=== PATIENT | female | born 1970 | race Caucasian/White ===

== ENCOUNTER 2017-12-20 14:30 | Outpatient (RCR) | payer OTHER, SELFPAY | END 2018-01-12 23:59 | LOC: DC 14:30 | PROVIDERS: Family Provider Nurse Practitioner; PCP Nurse Practitioner; Visit Provider Nurse Practitioner | DX: E11.9 Type 2 diabetes mellitus without complications (principal); Z71.3 Dietary counseling and surveillance | CPT/HCPCS: 97802; G0108 ==

== ENCOUNTER 2018-02-06 16:16 | Outpatient (RCR) | payer OTHER, SELFPAY | END 2018-02-11 23:59 | LOC: DC 16:16 | PROVIDERS: Family Provider Nurse Practitioner; PCP Nurse Practitioner; Visit Provider Nurse Practitioner | DX: E11.9 Type 2 diabetes mellitus without complications (principal); Z71.3 Dietary counseling and surveillance | CPT/HCPCS: 97803 ==

== ENCOUNTER 2018-03-16 18:30 | Outpatient (RCR) | payer OTHER, SELFPAY | END 2018-04-14 23:59 | LOC: DC 18:30 | PROVIDERS: Family Provider Nurse Practitioner; PCP Nurse Practitioner; Visit Provider Nurse Practitioner | DX: E11.9 Type 2 diabetes mellitus without complications (principal); Z71.3 Dietary counseling and surveillance | CPT/HCPCS: 97803; G0109 ==

== ENCOUNTER 2018-05-04 16:30 | Outpatient (RCR) | payer OTHER, SELFPAY | END 2018-05-14 23:59 | LOC: DC 16:30 | PROVIDERS: Family Provider Nurse Practitioner; PCP Nurse Practitioner; Visit Provider Nurse Practitioner | DX: E11.9 Type 2 diabetes mellitus without complications (principal); Z71.3 Dietary counseling and surveillance | CPT/HCPCS: G0109 ==

== ENCOUNTER 2018-05-18 08:52 | Outpatient (RCR) | payer OTHER, SELFPAY | END 2018-06-14 23:59 | LOC: DC 08:52 | PROVIDERS: Family Provider Nurse Practitioner; PCP Nurse Practitioner; Referring Provider Nurse Practitioner; Visit Provider Nurse Practitioner | DX: E11.9 Type 2 diabetes mellitus without complications (principal); Z71.3 Dietary counseling and surveillance ==

== ENCOUNTER → 2018-05-29 07:26 | Outpatient (CLI) | payer OTHER, SELFPAY ==
--- NOTE | 2018-05-29 07:30 | ECHOD_ITS ---
Reason For Study: SOB Procedure This was a 2D Doppler, Color Flow transthoracic echocardiogram. Exam performed in department. Left Ventricle Normal LV size. Left ventricular systolic function is normal. The estimated ejection fraction is 55 %. Normal diastology for age. No regional wall motion abnormalities noted. Right Ventricle Normal RV size. Normal systolic function. Atria Normal left atrium. Normal right atrium. Mitral Valve Normal mitral valve. Tricuspid Valve Normal tricuspid valve. Aortic Valve Normal aortic valve. Trisinus/trileaflet aortic valve. Pulmonic Valve Normal pulmonic valve. Great Vessels Normal aortic root. The pulmonary artery is normal size. Normal inferior vena cava. Pericardium/Pleural No pericardial effusion. MMode/2D Measurements & Calculations LVIDd: 4.3 cm IVSd: 0.78 cm Ao root diam: 2.9 cm LVIDs: 2.8 cm LVPWd: 0.82 cm LA dimension: 3.6 cm RVDd: 3.1 cm FS: 33.7 % LAV(MOD-bp): 32.0 ml LA A4 area: 13.2 cm2 RA A4 area: 10.6 cm2 LAV(MOD-bp) Indexed: 15.7 ml/m2 LAV(MOD-sp2): 32.2 ml LAV(MOD-sp4): 29.3 ml Time Measurements MV dec time: 0.19 sec Doppler Measurements & Calculations MV E max jonathan: 86.4 cm/sec Lat Peak E' Jonathan: 10.1 cm/sec Med Peak E' Jonathan: 8.3 cm/sec MV A max jonathan: 67.7 cm/sec E/E' lat: 8.5 E/E' med: 10.4 MV E/A: 1.3 Ao V2 max: 143.5 cm/sec LV V1 max: 121.7 cm/sec PA V2 max: 112.5 cm/sec Ao max P.2 mmHg LV V1 max P.9 mmHg Interpretation Summary Normal LV size. Left ventricular systolic function is normal. The estimated ejection fraction is 55 %. Normal diastology for age. Ordering Physician: Cathy Wang Referring Physician: Cathy Wang Performed By: Jocelyn Houser, GONZALEZ, RVT
[2018-05-29 07:52] LABS: Absolute Lymphocyte Count 3.49 X10^3/ul (0.83-4.51); Absolute Neutrophil Count 10.6 X10^3/uL (2.0-7.7); Basophil# 0.03 X10^3/uL; Basophil% 0.2 % (0-1); Eosinophil# 0.45 X10^3/uL; Eosinophils% 2.9 % (0-5); Hematocrit 39.1 % (37-47); Lymphocyte # 3.49 X10^3/ul (4.0); Lymphocyte % 22.4 % (19-41); Mean Corp Hgb Conc 30.7 g/gl (32-36); Mean Corpuscular Hgb 24.4 pg (27.0-32.0); Mean Corpuscular Volume 79.5 fL (81-99); Mean Platelet Vol. 10.3 fl (6.2-12.0); Monocyte# 0.92 X10^3/uL; Monocyte% 5.9 % (0-10); Neutrophil # 10.63 X10^3/uL (2.7-7.7); Neutrophil % 68.3 % (47-70); Platelet Count 502 K/mm3 (150-450); RBC Distribution Width CV 16.2 % (11.6-14.6); RBC Distribution Width SD 46.9 fl (35.1-43.9); Red Blood Count 4.92 M/mm3 (4.2-5.4); White Blood Count 15.6 K/mm3 (4.4-11.0)
[2018-05-29 07:53] LABS: POSITIVE COUNT NO; POSITIVE DIFFERENTIAL NO; POSITIVE MORPHOLOGY NO
--- NOTE | 2018-05-29 08:05 | EKG12_ITS ---
Test Reason : SOB Blood Pressure : / mmHG Vent. Rate : 102 BPM Atrial Rate : 102 BPM P-R Int : 136 ms QRS Dur : 074 ms QT Int : 354 ms P-R-T Axes : 031 -03 011 degrees QTc Int : 461 ms Sinus tachycardia Otherwise normal ECG Confirmed by DEMETRICE BUENO, PREMA ([id number]), acquisition editor SALO MAYFIELD ([id number]) on 06/01/2018 10:21:33 AM Referred By: Cathy Wang Confirmed By:PREMA SURESH MD
[2018-05-29 08:12] LABS: Cholesterol 194 mg/dL (200); High Density Lipoprotein 40 mg/dL; Thyroid Stim Hormone (TSH) 2.44 uIU/mL (0.358-3.74); Triglycerides 123 mg/dL; Very Low Density Lipoprotein 25 mg/dL (5-40)
== END ==
LOC: CVS 07:29
PROVIDERS: Family Provider Internal Medicine; PCP Internal Medicine; Referring Provider Internal Medicine; Visit Provider Internal Medicine
DX: E03.9 Hypothyroidism, unspecified (principal); E11.9 Type 2 diabetes mellitus without complications; G47.33 Obstructive sleep apnea (adult) (pediatric); R06.02 Shortness of breath
CPT/HCPCS: 36415; 80061; 84443; 85025; 93005; 93306

== ENCOUNTER → 2018-07-07 12:27 | Outpatient (CLI) | payer OTHER, SELFPAY ==
[2018-06-28 16:47] VITALS: BMI 35.3
--- NOTE | 2018-07-07 12:30 | BI_ITS ---
MAMMOGRAPHY - BILATERAL SCREENING REASON FOR EXAM: Female, 47 years old. Routine annual screening examination. PERTINENT HISTORY: Non-contributory. TECHNIQUE: Digital bilateral breast ivet (3D mammographic acquisition) in the CC and MLO projections. 2-D mediolateral oblique (MLO) and craniocaudad (CC) views of both breasts were obtained. CAD: Full Field Digital Mammography with Computer Added Detection was performed. COMPARISON: Comparison is made with a prior examination is May 02, 2013. FINDINGS: Breast Composition: The breasts are heterogeneously dense, which may obscure small masses. There are no dominant masses or suspicious calcifications. No other significant abnormalities are identified. There has been no significant change since the prior study. BI/SCREENING MAMM (CAD), BILAT IMPRESSION: Stable bilateral screening mammogram. Yearly follow-up mammogram recommended. (A) ASSESSMENT CATEGORY: BIRADS Category 1: Negative. A letter regarding these results will be sent to the patient by the facility within 30 days. Approximately 10% of breast cancers are not detected by mammography. A normal mammogram should not delay biopsy of a clinically suspicious abnormality. [id number] Electronically Signed: Jj Rivera MD at 9:37 EST Tel [phone], Service support ,
== END ==
PROVIDERS: Family Provider Internal Medicine; PCP Internal Medicine; Referring Provider Internal Medicine; Visit Provider Internal Medicine
DX: Z12.31 Encounter for screening mammogram for malignant neoplasm of breast (principal)
CPT/HCPCS: 77063; 77067

== ENCOUNTER 2018-07-17 08:45 | Emergency (ER) | payer OTHER, SELFPAY ==
[2018-07-14 14:59] VITALS: BMI 35.3
[2018-07-17 08:46] VITALS: BP 147/92; PULSE 92; RESP 23; TEMP 36.9; O2SAT 96; BMI 35.7
[2018-07-17 09:18] VITALS: O2SAT 97
--- NOTE | 2018-07-17 09:18 | EKG12_ITS ---
Test Reason : CP Blood Pressure : / mmHG Vent. Rate : 091 BPM Atrial Rate : 091 BPM P-R Int : 142 ms QRS Dur : 072 ms QT Int : 360 ms P-R-T Axes : 058 009 007 degrees QTc Int : 442 ms Normal sinus rhythm Low voltage QRS Borderline ECG Confirmed by DEMETRICE BUENO, PREMA ([id number]), assignment editor SALO MAYFIELD ([id number]) on 07/20/2018 1:42:28 PM Referred By: DURGA Confirmed By:PREMA SURESH MD
[2018-07-17 09:35] LABS: Absolute Neutrophil Count 10.1 X10^3/uL (2.0-7.7); Basophil# 0.07 X10^3/uL; Basophil% 0.5 % (0-1); Eosinophil# 0.56 X10^3/uL; Eosinophils% 3.7 % (0-5); Hematocrit 38.1 % (37-47); Hemoglobin 11.6 g/dl (12.0-15.0); Lymphocyte % 22.6 % (19-41); Mean Corp Hgb Conc 30.4 g/gl (32-36); Mean Corpuscular Hgb 23.8 pg (27.0-32.0); Mean Corpuscular Volume 78.1 fL (81-99); Mean Platelet Vol. 10.4 fl (6.2-12.0); Monocyte# 0.84 X10^3/uL; Monocyte% 5.6 % (0-10); Neutrophil # 10.07 X10^3/uL (2.7-7.7); Neutrophil % 67.1 % (47-70); POSITIVE COUNT NO; POSITIVE DIFFERENTIAL NO; POSITIVE MORPHOLOGY NO; Platelet Count 544 K/mm3 (150-450); RBC Distribution Width CV 17.1 % (11.6-14.6); RBC Distribution Width SD 48.3 fl (35.1-43.9); Red Blood Count 4.88 M/mm3 (4.2-5.4)
--- NOTE | 2018-07-17 09:35 | RAD_ITS ---
STUDY: X-RAY CHEST REASON FOR EXAM: Female, 47 years old. Chest pain. History of asthma. TECHNIQUE: PA and lateral views of the chest. COMPARISON: Comparison is made with prior examination dated January 28, 2017. FINDINGS: EKG electrodes are seen. Mild increased linear markings at the left lung base suggestive of a left basilar atelectasis and/or scarring. This has progressed slightly as compared to prior study. There is no demonstrated pleural abnormality. Normal size heart. Normal mediastinum and sherwin. Normal visualized pulmonary arteries. Normal visualized aortic arch and descending thoracic aorta. There are mild degenerative changes of the visualized thoracic spine. Normal visualized ribs, clavicles, and shoulders. There is no demonstrated abnormality of the visualized soft tissue structures of the upper abdomen. RAD/Chest PA and Lateral IMPRESSION: Minimal increased linear markings at the left lung base suggestive of linear atelectasis and/or scarring. Electronically Signed: Jj Rivera MD at 10:08 EST Tel [phone], Service support ,
[2018-07-17] MEDS: Aspirin 81 MG TAB.CHEW 324 MG PO (09:47)
[2018-07-17 09:50] LABS: Anion Gap 8 (5-15); BUN 15 mg/dL (7-18); BUN/Creat Ratio 15.2 RATIO (10-20); Calcium,Total 9.7 mg/dL (8.5-10.1); Chloride 102 mmol/L (98-107); Creatinine, Serum 0.99 mg/dL (0.55-1.02); EST Glomerular Filtration Rate 64 mL/min (>60); Est Glom Filt Rate - Afr Amer 78 mL/min (>60); Estimated Creatinine Clearance 66.47 ml/min; Glucose 181 mg/dL (74-106); Sodium Level 138 mmol/L (136-145)
[2018-07-17 09:54] VITALS: BP 139/85; PULSE 85; RESP 18; O2SAT 97
[2018-07-17 10:00] LABS: BNP,B-Type NATRIURETIC PEPTIDE 28.8 pg/mL (0-100)
--- NOTE | 2018-07-17 10:16 | CT_ITS ---
STUDY: CTA CHEST REASON FOR EXAM: Female, 47 years old. 2 day history of chest pain. Recent medication change. RADIATION DOSAGE (If Supplied By Facility): CTDIvol = ( 14.62 ) mGy, DLP = ( 633.35 ) mGycm TECHNIQUE: The examination was performed with the intravenous administration of 100 ml of Isovue 370 contrast material. Post-processing of the angiographic images was performed, with multiplanar reformation and 3D reconstruction. Individualized dose optimization techniques were used for this CT. COMPARISON: None. FINDINGS: Normal enhancement of the main pulmonary artery and right and left pulmonary arteries. Normal enhancement of the bilateral peripheral pulmonary arteries. There is no demonstrated pulmonary embolism. Normal thoracic aorta and visualized great vessels. There is no demonstrated aortic dissection. Normal heart and pericardium. Normal mediastinum. Normal hilar regions. Normal visualized trachea and bronchi. The lungs are well expanded. Minimal increased linear markings in the anterior aspect of the left lower lobe. Minimal pleural thickening at both lung bases. Normal chest wall structures. There are degenerative changes of thoracic spine. There is diffuse fatty infiltration of the liver. CT/CTA Chest W/WO Contrast IMPRESSION: Normal CTA chest examination, without a demonstrated pulmonary embolism or arterial dissection. Electronically Signed: Jj Rivera MD at 11:21 EST Tel [phone], Service support ,
[2018-07-17 11:19] VITALS: BP 126/78; PULSE 77; RESP 20; O2SAT 96
--- NOTE | 2018-07-17 11:55 | ED.VISSUMM ---
- ER Visit Summary Date of Service: 07/17/18 Chief Complaint: Chest pain History of Present Illness: The patient is a 47 F presenting with right sided nonradiating, nonexertional chest pain essentially for several weeks intermittently but now constant for the past 4 days. She saw her doctor for it last week and her beta-alvarez was switched. She started to feel somewhat better since then but the chest pain has never completely resolved. It is not worse with exertion nor does she have associated diaphoresis. She does have occasional dyspnea. She denies recent travel or immobilization. She does note somewhat chronic lower extremity edema but this is not much worse than baseline. She denies orthopnea. Physical Examination: Vitals are within normal limits. She is not in distress. Neck is supple. Heart tones are regular and without murmur. Lungs are clear bilaterally. Her abdomen is soft and nontender. She has 1+ symmetric lower extremity edema. No tenderness along the lower extremity venous system or palpable cords. Test Results: CBC was normal except for white count of 15,000. She states that this is chronic for her and her baseline is 15,000. She states that she has been evaluated extensively for this with no conclusive cause found and has had consultations with 2 separate yard stocker. She denies cough, fever, chills, or body aches at this time. No symptoms of infection. Chest x-ray was negative for obvious acute process but did reveal atelectasis at the bases. Troponin was negative after 4 days of constant symptoms and her EKG is unremarkable so I do not think that there is an acute cardiac cause for her pain at this time. I subsequently ordered a CT angiogram to rule out pulmonary embolism and it was negative. She feels quite well on reexamination. She certainly does have multiple risk factors but her pain is not exertional nor is it associated with any other cardiac type symptoms and she has a negative troponin after several days of constant symptoms. The exact cause of her chest pain is not clear at this point but it does not appear to be life-threatening. I feel she can safely follow-up with a top lift scourer as an outpatient. Emergency Department Course and Treatment: Follow-up with cardiology Treatment Plan: Disposition: Home stable condition Impression: Initial encounter chest pain uncertain etiology This note was generated with [employer] dictation software. It may contain incorrect words, spelling, and punctuation that were not noted in review of the chart prior to signing ED Disposition - Plan for ED Patient: Chief Complaint: Chest Pain Diagnosis: Chest pain Instructions: ED Chest Pain Atypical Unkn Cause Referrals: Madi Tovar MD [STAFF PHYSICIAN] -
--- NOTE | 2018-07-17 11:59 | ED.DCSUM_ITS ---
- ER Visit Summary Date of Service: 07/17/18 Chief Complaint: Chest pain History of Present Illness: The patient is a 47 F presenting with right sided nonradiating, nonexertional chest pain essentially for several weeks intermittently but now constant for the past 4 days. She saw her doctor for it last week and her beta-alvarez was switched. She started to feel somewhat better since then but the chest pain has never completely resolved. It is not worse with exertion nor does she have associated diaphoresis. She does have occasional dyspnea. She denies recent travel or immobilization. She does note somewhat chronic lower extremity edema but this is not much worse than baseline. She denies orthopnea. Physical Examination: Vitals are within normal limits. She is not in distress. Neck is supple. Heart tones are regular and without murmur. Lungs are clear bilaterally. Her abdomen is soft and nontender. She has 1+ symmetric lower extremity edema. No tenderness along the lower extremity venous system or palpable cords. Test Results: CBC was normal except for white count of 15,000. She states that this is chronic for her and her baseline is 15,000. She states that she has been evaluated extensively for this with no conclusive cause found and has had consultations with 2 separate bilingual hr generalist. She denies cough, fever, chills, or body aches at this time. No symptoms of infection. Chest x-ray was negative for obvious acute process but did reveal atelectasis at the bases. Troponin was negative after 4 days of constant symptoms and her EKG is unremarkable so I do not think that there is an acute cardiac cause for her pain at this time. I subsequently ordered a CT angiogram to rule out pulmonary embolism and it was negative. She feels quite well on reexamination. She certainly does have multiple risk factors but her pain is not exertional nor is it associated with any other cardiac type symptoms and she has a negative troponin after several days of constant symptoms. The exact cause of her chest pain is not clear at th is point but it does not appear to be life-threatening. I feel she can safely follow-up with a woodworking machine setter as an outpatient. Emergency Department Course and Treatment: Follow-up with cardiology Treatment Plan: Disposition: Home stable condition Impression: Initial encounter chest pain uncertain etiology This note was generated with [employer] dictation software. It may contain incorrect words, spelling, and punctuation that were not noted in review of the chart prior to signing ED Disposition - Plan for ED Patient: Chief Complaint: Chest Pain Diagnosis: Chest pain Instructions: ED Chest Pain Atypical Unkn Cause Referrals: Madi Tovar MD [STAFF PHYSICIAN] -
[2018-07-17 12:14] VITALS: BP 125/75; PULSE 81; RESP 20; O2SAT 95
--- OUTSIDE RECORDS SUMMARY | 2018-09-09 12:29 | XMS RPT_ITS ---
:1970 Author Organization OHIP Support Name Relationship Address Phone TONIO THOMSON Unavailable [address] + [place] [address] TEAL, RAFFI Unavailable [address] + [place] [address] WAY[facility] Unavailable [address] + [place] [address] CARTIM TONIO Unavailable [address] + [place] [address] TEAL, RAFFI Unavailable [address] + [place] [address] [employer] Unavailable [address] + [place] [address] CARICOFE, TONIO Unavailable [address] + [place] [address] TEAL, RAFFI Unavailable [address] + [place] [address] [facility] Unavailable [address] + [place] [address] CARICOFE, TONIO Unavailable [address] + [place] [address] TEAL, RAFFI Unavailable [address] + [place] [address] [facility] Unavailable [address] + [place] [address] CARICOFE, TONIO Unavailable [address] + [place] [address] TEAL, RAFFI Unavailable [address] + [place] [address] [facility] Unavailable [address] + [place] [address] CARICOFE, TONIO Unavailable [address] + [place] [address] TEAL, RAFFI Unavailable [address] + [place] [address] [facility] Unavailable [address] + [place] [address] CARICOFE, TONIO Unavailable [address] + [place] [address] TEAL, RAFFI Unavailable [address] + [place] [address] [facility] Unavailable [address] + [place] [address] CARICOFE, TONIO Unavailable [address] + [place] [address] TEAL, RAFFI Unavailable [address] + [place] [address] [facility] Unavailable [address] + [place] [address] CARICOFE, TONIO Unavailable Unavailable + TEAL, RAFFI Unavailable Unavailable + [facility] Unavailable [address] + [place] [address] CARICOFE, TONIO Unavailable [address] + [place] [address] TEAL, RAFFI Unavailable [address] + [place] [address] [facility] Unavailable [address] + [place] [address] CARICOFE, TONIO Unavailable [address] + [place] [address] TEAL, RAFFI Unavailable [address] + [place] [address] [facility] Unavailable [address] + [place] [address] CARICOFE, TONIO Unavailable [address] + [place] [address] TEAL, RAFFI Unavailable Unavailable + [place] [address] [facility] Unavailable [address] + [place] [address] CARICOFE, TONIO Unavailable [address] + [place] [address] TEAL, RAFFI Unavailable Unavailable + [place] [address] [facility] Unavailable [address] + [place] [address] CARICOFE, TONIO Unavailable [address] + [place] [address] TEAL, RAFFI Unavailable [address] + [facility] [place] [address] WAY[facility] Unavailable [address] + [place] [address] [facility] Unavailable [address] + [place] [address] Caricofe, Tonio Unavailable [address] + [place] [address] Teal, Raffi Unavailable [address] + [place] [address] [facility] Unavailable [address] + [place] [address] Caricofe, Tonio Unavailable [address] + [place] [address] Teal, Raffi Unavailable [address] + [place] [address] [facility] Unavailable [address] + [place] [address] Caricofe, Tonio Unavailable [address] + [place] [address] Teal, Raffi Unavailable [address] + [place] [address] WAYBD[facility] Unavailable [address] + [place] [address] Caricofe, Tonio Unavailable [address] + [place] [address] Teal, Raffi Unavailable [address] + [place] [address] [employer] Unavailable [address] + [place] [address] Caricofe, Tonio Unavailable [address] + [place] [address] Teal, Raffi Unavailable [address] + [place] [address] [facility] Unavailable [address] + [place] [address] Caricofe, Tonio Unavailable [address] + [place] [address] Teal, Raffi Unavailable [address] + [place] [address] [employer] Unavailable [address] + [place] [address] Caricofe, Tonio Unavailable [address] + [place] [address] Teal, Raffi Unavailable [address] + [place] [address] WAY[facility] Unavailable [address] + [place] [address] Caricofe, Tonio Unavailable [address] + [place] [address] Teal, Raffi Unavailable [address] + [place] [address] WAYBD[facility] Unavailable [address] + [place] [address] Caricofe, Tonio Unavailable [address] + [place] [address] Teal, Raffi Unavailable [address] + [place] [address] WAYBD[facility] Unavailable [address] + [place] [address] Caricofe, Tonio Unavailable [address] + [place] [address] Teal, Raffi Unavailable [address] + [place] [address] WAYBDMD Unavailable [address] + [place] [address] Timbo Tonio Unavailable [address] + [place] [address] Teal, Raffi Unavailable [address] + [place] [address] WAYBD[facility] Unavailable [address] + [place] [address] Tonio Thomson Unavailable [address] + [place] [address] Teal, Raffi Unavailable [address] + [place] [address] WAYBD[facility] Unavailable [address] + [place] [address] Care Team Providers Name Role Phone Renita Mondragon Attending Unavailable GuyHannah cordoval Attending Unavailable Oleghe, Efewongbe Referring Unavailable Chanel Young Attending Unavailable Patricia Harmon PAYROLL MANAGER-C Attending Unavailable ShoPatricia cedeno PAYROLL MANAGER-C Referring Unavailable ShoPatricia cedeno PAYROLL MANAGER-C Primary Care Unavailable Guy, Madi Attending Unavailable Guy, [place] Referring Unavailable Oleghe, Efewongbe Primary Care Unavailable Oleghe, Efewongbe Attending Unavailable Oleghe, Efewongbe Referring Unavailable Ganesh Palmer Attending Unavailable Patricia Harmon PAYROLL MANAGER-C Referring Unavailable Patricia Harmon PAYROLL MANAGER-C Primary Care Unavailable [facility], Later [facility] [facility] Attending Unavailable Patricia Harmon PAYROLL MANAGER-C Attending Unavailable Patricia Harmon PAYROLL MANAGER-C Referring Unavailable ShoPatricia cedeno PAYROLL MANAGER-C Attending Unavailable Patricia Harmon PAYROLL MANAGER-C Referring Unavailable Patricia Harmon PAYROLL MANAGER-C Primary Care Unavailable Patricia Harmon PAYROLL MANAGER-C Attending Unavailable Patricia Harmon PAYROLL MANAGER-C Referring Unavailable Patricia Harmon PAYROLL MANAGER-C Primary Care Unavailable Patricia Harmon PAYROLL MANAGER-C Attending Unavailable Patricia Harmno PAYROLL MANAGER-C Referring Unavailable Patricia Harmon PAYROLL MANAGER-C Primary Care Unavailable [facility], Later [facility] [facility] Employee Attending Unavailable Patricia Harmon PAYROLL MANAGER-C Attending Unavailable Patricia Harmon PAYROLL MANAGER-C Referring Unavailable ShoPatricia cedeno PAYROLL MANAGER-C Attending Unavailable ShoPatricia cedeno PAYROLL MANAGER-C Referring Unavailable ShoPatricia cedeno PAYROLL MANAGER-C Primary Care Unavailable Patricia Harmon PAYROLL MANAGER-C Attending Unavailable ShoPatricia cedeno PAYROLL MANAGER-C Referring Unavailable ShoPatricia cedeno PAYROLL MANAGER-C Primary Care Unavailable Oleghe, Efewongbe Attending Unavailable ShoPatricia cedeno PAYROLL MANAGER-C Referring Unavailable Oleghe, Efewongbe Attending Unavailable Oleghe, Efewongbe Referring Unavailable Oleghe, Efewongbe Primary Care Unavailable Guy, [place] Attending Unavailable Oleghe, Efewongbe Referring Unavailable Oleghe, Efewongbe Primary Care Unavailable Oleghe, Efewongbe Consulting Unavailable Patricia Harmon PAYROLL MANAGER-C Attending Unavailable Showilian, Patricia Ojeda PAYROLL MANAGER-C Referring Unavailable ShoPatricia cedeno PAYROLL MANAGER-C Attending Unavailable Shook, Patricia Ojeda PAYROLL MANAGER-C Referring Unavailable Oleghe, Efewongbe Primary Care Unavailable Clay Suresh Attending Unavailable Oleghe, Efewongbe Referring Unavailable Oleghe, Efewongbe Attending Unavailable Oleghe, Efewongbe Referring Unavailable Oleghe, Efewongbe Attending Unavailable Oleghe, Efewongbe Primary Care Unavailable Oleghe, Efewongbe Referring Unavailable Oleghe, Efewongbe Attending Unavailable Oleghe, Efewongbe Primary Care Unavailable Emigdio Clemente PAYROLL MANAGER-C Attending Unavailable Oleghe, Efewongbe Referring Unavailable Oleghe, Efewongbe Primary Care Unavailable Narendra Adams Attending Unavailable PROBLEMS PROBLEMS DATE TYPE CONDITION / CODE ATTENDING STATUS SOURCE 07/31/2018 Unknown E11.9 - Type 2 Oleghe, Active [facility] diabetes mellitus [place] Community without Hospital complications / Repository E11.9(ICD-10) 07/31/2018 Unknown R07.9 - Chest pain, Guy, Madi Active [facility] unspecified / Community R07.9(ICD-10) Hospital Repository 07/26/2018 Unknown I10 - Essential Guy, Madi Active [facility] (primary) Community hypertension / Hospital I10(ICD-10) Repository 05/30/2018 Unknown E03.9 - Guy, [place] Active [facility] Hypothyroidism, Community unspecified / Hospital E03.9(ICD-10) Repository 05/30/2018 Unknown G47.33 - Madi Tovar Active [place] Obstructive sleep Community apnea (adult) Hospital (pediatric) / Repository G47.33(ICD-10) 06/23/2018 Unknown R06.02 - Shortness Clay Suresh Active [facility] of breath / Community R06.02(ICD-10) Hospital Repository 06/23/2018 Unknown R00.0 - Clay Suresh Active [facility] Tachycardia, Community unspecified / Hospital R00.0(ICD-10) Repository 05/22/2018 Unknown Z12.31 - Encounter Millerera Active [facility] for screening [facility] mammogram for Hospital malignant neoplasm Repository of breast / Z12.31(ICD-10) 05/22/2018 Unknown Z00.00 - Encounter Oleera, Active [facility] for general adult [facility] medical examination Hospital without abnormal Repository findings / Z00.00(ICD-10) 02/27/2018 Unknown D72.829 - Elevated Patricia Harmon Active [facility] white blood cell PAYROLL MANAGER-C Community count, unspecified Hospital / D72.829(ICD-10) Repository 12/06/2017 Unknown E11.69 - Type 2 Patricia Harmon Active [facility] diabetes mellitus PAYROLL MANAGER-C Community with other Hospital specified Repository complication / E11.69(ICD-10) 09/13/2017 Unknown R52 - Pain, Spencer, Ganesh Active [facility] unspecified / Community R52(ICD-10) Hospital Repository PROCEDURES PROCEDURES No Procedure Records FoundRESULTS RESULTS STRESS REPORT Observed: 07/31/2018 Status: F Source: [place] 5:36 PM [facility] REPOSITORY [facility] Cardiovascular Services [address] [place] [id number] MR#: [id number] Acct: [id number] Name: ANDREY THOMSON Rep #: [id number] : 1970 47 From: Madi Tovar MD Primary Care: Cathy Wang MD Status: REG CLI Ordering Dr: Sex: F C Stress Test Report Pharmacologic myocardial perfusion stress test. 47-year-old lady with a history of chest pain. Medications losartan, hydrochlorothiazide, metoprolol. Resting EKG demonstrates normal sinus rhythm with a rate of 90 bpm normal intervals are noted resting blood pressure 120/70 mmHg. 0.4 mg of regadenoson was infused per usual protocol followed by rapid intravenous saline flush injection continuous EKG monitoring was performed. The maximum heart rate attained was 139 bpm which was 79% of maximum predicted heart rate the maximum workload attained was 1 metabolic equivalent. At rest there were no ST or T wave changes noted suggest abnormal flow reserve at peak infusion nonspecific ST-T wave changes were noted with no meet the criteria for ischemia. The resting blood pressure was 120/70 with a peak blood pressure 142/80 mmHg. Myocardial perfusion protocol. 14.7 mCi of technetium 99m sestamibi was injected at rest. 0.4 mg of regadenoson was infused per usual protocol peak infusion 44.5 mCi of technetium 99m sestamibi was injected stress images were obtained stress and rest images were reconstructed and compared in the short axis vertical and horizontal long axis. Gated images were also obtained Perfusion SPECT analysis: Review of the images demonstrate normal uptake of tracer noted in all areas of the myocardium. The resting images similarly demonstrate normal uptake of tracer noted in all areas of the myocardium. No areas of reversibility are noted suggest ischemia no previous infarct is noted. Gated SPECT analysis: The gated ejection fraction is noted to be 56%. Conclusion: Normal pharmacologic myocardial perfusion stress test. Preserved ejection fraction. 07/31/181735 <Electronically signed by Madi Tovar MD> Date Madi Tovar MD CC: Madi Tovar MD; Cathy Wang MD Date Dictated: 07/31/181733 Date Transcribed: 07/31/181733 Mail Manager: [place] Signed CARDIOLOGY VISIT Observed: 07/26/2018 Status: F Source: [place] REPORT 10:59 AM [facility] REPOSITORY [facility] [address] [place], [place] [address]era. [address] [place] [address] OFFICE VISIT Date of Service: 07/26/18 MR#: [id number] Acct: [id number] Name: ANDREY THOMSON Rep #: [id number] : 1970 Provider: Madi Tovar MD Age/Sex: 47/F Location[place] [facility] [place] Status: Signed [facility] Chief Complaint: Initial visit Details: ANDREY THOMSON, is a 47 F who presents to the office today for an initial visit. She is a lady with a history of hypertension who had presented with chest discomfort. She says this was nonexertional she had previously been on a beta-alvarez which had been reduced and changed. She says that she started getting symptoms of palpitations as well as exertional dyspnea. She did present to the emergency room for the above she was evaluated her EKG was unremarkable troponins were normal. She has had no dizziness or diaphoresis no near syncope or syncope. She did undergo an echocardiographic evaluation in May 2018 which did not demonstrate any wall motion abnormalities preserved ejection fraction was noted and no valvular abnormalities were noted her ejection fraction was 55%. A pharmacologic myocardial perfusion stress test performed in 2013 did not demonstrate any evidence of ischemia. Her physical exam here today demonstrates clear lung ramirez regular rate and rhythm and no pedal edema. Intake Vital Signs07/26/18 Height 5 ft 6 in Intake Visit Reasons: ER 12-3 for CP (NEW to MIXER TENDER/G) Allergies Penicillins [PCN] Allergy (Verified 07/26/18 09:19) Hives Sulfa (Sulfonamide Antibiotics) Allergy (Verified 07/26/18 09:19) Hives Medications Albuterol Sulfate [Proventil Hfa] 90 mcg IH Q4H PRN PRN 03/18/14 [History Confirmed 07/26/18] Omeprazole [Prilosec] 20 mg PO PRN PRN 11/10/16 [History Confirmed 07/26/18] blood sugar diagnostic strips See Dose Instructions .ROUTE .MEDSUPPLY #20 ea 08/30/17 [History Confirmed 07/26/18] lancets 33 gauge See Dose Instructions .ROUTE .MEDSUPPLY #100 ea 08/30/17 [History Confirmed 07/26/18] lorazepam 0.5 mg tablet 0.5 mg PO QHS PRN #30 tab 05/22/18 [Rx Confirmed 07/26/18] losartan 100 mg tablet 100 mg PO DAILY #90 tab 06/28/18 [Rx Confirmed 07/26/18] rosuvastatin 10 mg tablet 10 mg PO DAILY #60 tab 06/28/18 [Rx Confirmed 07/26/18] liothyronine 5 mcg tablet 5 mcg PO DAILY #30 tab 07/13/18 [Rx Confirmed 07/26/18] metoprolol tartrate 25 mg tablet 25 mg PO BID #60 tab 07/14/18 [Rx Confirmed 07/26/18] Metformin HCl 1,000 mg PO BID 07/17/18 [History Confirmed 07/26/18] Metformin HCl [Glucophage] 500 mg PO LUNCH 07/17/18 [History Confirmed 07/26/18] Repaglinide 4 mg PO TIDCM 07/17/18 [History Confirmed 07/26/18] levothyroxine 50 mcg tablet 100 mcg PO QDAY #180 tab 07/17/18 [Rx Confirmed 07/26/18] hydrochlorothiazide 12.5 mg tablet 12.5 mg PO DAILY #90 tab 07/26/18 [Rx Confirmed 07/26/18] PFSH Medical History Essential hypertension (Chronic) TORIBIO (obstructive sleep apnea) (Chronic) Seasonal allergies (Chronic) Neuropathy (Chronic) Acquired hypothyroidism (Chronic) Type II diabetes mellitus (Chronic) Asthma (Chronic) Depression (Chronic) Diabetes type 2, controlled (Chronic) GERD (gastroesophageal reflux disease) (Chronic) Hypothyroidism (Chronic) Low back pain (Chronic) Positive P-ANCA titer (Chronic) Sleep apnea (Chronic) chronic arthralgia of bilat knees (Chronic) Allergic rhinitis (Resolved) Asthma (Resolved) Chronic fatigue (Resolved) Fatty liver (Resolved) History of low potassium (Resolved) Hyperlipidemia associated with type 2 diabetes mellitus (Inactive) Leukocytosis (Inactive) Surgical History Hx of cholecystectomy (Resolved) Family History Father Arthritis Hypertension Hyperlipemia Mother Diabetes Heart disease Hypertension CVA (cerebral vascular accident) Respiratory disease Anxiety and depression Grandfather Lung cancer Grandmother Uterine cancer Skin cancer Diabetes Anxiety and depression Brother Multiple sclerosis Social History Smoking Status: Never smoker second hand exposure: No alcohol intake: current alcohol intake frequency: a few times a month substance use type: does not use what type of physical activity do you participate in: none ROS Const Const: Positive for fatigue; negative for weakness, difficulty sleeping, frequent falls, excessive sweating or headache(s) Eyes Eyes: Negative for loss of peripheral vision, transient loss of vision, blurry vision, tunnel vision or double vision ENT ENT: Negative for headache(s), dizziness, Nosebleed/epistaxis or balance problems Cardio Chest Pain: Yes (Chest pain after 5 days after stopping Losartan-HCTZ) Frequency: other (new onset over the past 2 weeks) Character: tightness, other (right chest w/ stress) Onset: other (stress) Location: right chest, mid sternal Duration: hours, minutes Exacerbation: other (anxiety) Palpitations: No Edema: None Muscle aches with walking: None Resp Respiratory: Positive for SOB with activity; negative for SOB at rest, SOB orthopnea\SOB lying down, paroxysmal nocturnal dyspnea or Cough GI GI: Negative nausea, heartburn, black,tarry stools or vomiting : Negative for hematuria Musc Musc: Negative for balance problems, muscle aches/ myalgia, muscle weakness or joint pain Skin Skin: Negative non-healing lesions, unusual bruising or rash Neuro Neuro: Negative for weakness, frequent falls, headache(s), blurry vision, double vision, dizziness, lightheadedness, orthostatic symptoms, near syncope, syncope or lack of coordination Yossi Hematologic/Lymphatic: Negative for easy bruising or easy bleeding Endo Endo: Positive for fatigue; negative for excessive sweating or increased thirst/drinking Psych Psych: Negative for anxiety or depression Allergy Allergy/Immunology: Negative for hives, Negative for rash Cardiology Exam Const Appearance: cooperative, healthy appearing, well developed, well groomed and no acute distress Nutritional Appearance: well nourished and average body habitus Orientation: alert, awake and oriented x3 Head Head: normal to inspection, normocephalic and atraumatic Ears: hearing grossly normal bilaterally and external ears normal Nose: external nose normal, nasal mucous membranes and turbinates normal, nares normal, septum normal, no nasal discharge Face and Sinus: face symmetric Mouth: oral mucosae normal, tongue normal, oropharynx normal and moist mucous membranes Teeth and gingiva: dentition normal Throat: posterior oropharynx normal, tonsils normal and uvula midline Eyes General: appearance normal, both eyes and all related structures Eyelids: eyelids normal Conjunctivae: conjunctivae normal Pupils: PERRL, normal by confrontation and accommodation normal EOM: EOM intact bilaterally Neck Neck: normal visual inspection, trachea midline and no JVD JVD: +5 Carotids: normal carotid upstroke and bounding pulses Chest Chest inspection: normal inspection of the chest, symmetric chest movement and normal respiratory effort Auscultation: Bilateral: Clear to Auscultation Cardio Palpation: normal PMI Rate: regular rate Rhythm: regular rhythm Heart sounds: S1 normal, S2 normal and normal, physiologic split S2; negative rub, gallop or murmur GI GI: normal to inspection, soft, no hepatosplenomegaly and bowel sounds present Neuro General: alert, awake, oriented x3, no focal sensory deficit, gait normal and moves all extremities Skin Skin: no rashes or lesions noted Extremities Pulses: Normal: Right Femoral Pulse, Left Femoral Pulse, Right Dorsalis Pedis Pulse, Left Dorsalis Pedis Pulse, Right Posterior Tibial Pulse, Left Posterior Tibial Pulse, Right Radial Pulse, Left Radial Pulse Lower Extremity Edema: None: Bilateral Musculoskel Musculoskeletal: No joint tenderness Psych Psychological: normal affect Assessment AND Plan 1. Chest pain R07.9 Plan He does present with chest discomfort which is somewhat atypical. Due to her risk factors of hypertension and diabetes I would recommend at that we obtain a pharmacologic myocardial perfusion stress test. She should continue her medications up to and including the day of the testing. Depending on the findings further recommendations will be made. Orders Orders: 2. Essential hypertension I10 Plan She has well-controlled blood pressure. She however has been complaining of feeling bloated and I would suggest the addition of hydrochlorthiazide 12.5 mg a day to her current regimen. Her lipid profile was excellent with a total cholesterol 194 and HDL of 40 and an LDL of 129. No other major changes will be made. I will have her follow with you and I will see her in 6 months. I have also instructed her on an appropriate diet Thank you for allowing me to participate in the care of your patient. Please don't hesitate to call if any issues arise Plan Detail Other Medications New: Follow Up 6 Months (mmm) Coding Level of Care Code Off vis,new,level 4 Diagnoses Chest pain R07.9 Essential hypertension I10 Coding Level of Care Code Off vis,new,level 4 Diagnoses Chest pain R07.9 Essential hypertension I10 07/26/18 1059 <Electronically signed by Madi Tovar MD> Date Madi Santos Signature: Date (if applicable) CC: Cathy Wang MD 12 LEAD ELECTROCARDIOGRAM Observed: 07/20/2018 Status: F Source: [place] 1:42 PM [facility] REPOSITORY [facility] Cardiovascular Services [address] [place] [address] 12 Lead EKG 07/17/18 0844 MR#: [id number] Acct: [id number] Name: ANDREY THOMSON Rep #: [id number] : 1970 47 From: Clay Suresh MD Attending Dr: Status: DEP ER Ordering Dr: Jero Adams MD Date: 07/17/18 Location: ED Sex: F C Admitted: Test Reason : CP Blood Pressure : / mmHG Vent. Rate : 091 BPM Atrial Rate : 091 BPM P-R Int : 142 ms QRS Dur : 072 ms QT Int : 360 ms P-R-T Axes : 058 009 007 degrees QTc Int : 442 ms Normal sinus rhythm Low voltage QRS Borderline ECG Confirmed by DEMETRICE BUENO, CLAY ([id number]), television news video editor SALO MAYFIELD ([id number]) on 07/20/2018 1:42:28 PM Referred By: DURGA Confirmed By:CLAY SURESH MD 07/20/18 1342 Date Clay Suresh MD CC: Narendra Adams MD; Cathy Wang MD Signed EMERGENCY DEPARTMENT Observed: 07/17/2018 Status: F Source: [place] SUMMARY 12:00 PM [facility] REPOSITORY [facility] Medical Records Department [address] [place] [address] Emergency Department Summary 07/17/18 1155 MR#: [id number] Acct: [id number] Name: ANDREY THOMSON Rep #: [id number] : 1970 47 From: Jero Adams MD PCP: Cathy Wang MD Status: REG ER - ER Visit Summary Date of Service: 07/17/18 Chief Complaint: Chest pain History of Present Illness: The patient is a 47 F presenting with right sided nonradiating, nonexertional chest pain essentially for several weeks intermittently but now constant for the past 4 days. She saw her doctor for it last week and her beta-alvarez was switched. She started to feel somewhat better since then but the chest pain has never completely resolved. It is not worse with exertion nor does she have associated diaphoresis. She does have occasional dyspnea. She denies recent travel or immobilization. She does note somewhat chronic lower extremity edema but this is not much worse than baseline. She denies orthopnea. Physical Examination: Vitals are within normal limits. She is not in distress. Neck is supple. Heart tones are regular and without murmur. Lungs are clear bilaterally. Her abdomen is soft and nontender. She has 1+ symmetric lower extremity edema. No tenderness along the lower extremity venous system or palpable cords. Test Results: CBC was normal except for white count of 15,000. She states that this is chronic for her and her baseline is 15,000. She states that she has been evaluated extensively for this with no conclusive cause found and has had consultations with 2 separate network operations manager. She denies cough, fever, chills, or body aches at this time. No symptoms of infection. Chest x-ray was negative for obvious acute process but did reveal atelectasis at the bases. Troponin was negative after 4 days of constant symptoms and her EKG is unremarkable so I do not think that there is an acute cardiac cause for her pain at this time. I subsequently ordered a CT angiogram to rule out pulmonary embolism and it was negative. She feels quite well on reexamination. She certainly does have multiple risk factors but her pain is not exertional nor is it associated with any other cardiac type symptoms and she has a negative troponin after several days of constant symptoms. The exact cause of her chest pain is not clear at this point but it does not appear to be life-threatening. I feel she can safely follow-up with a solutions sales consultant as an outpatient. Emergency Department Course and Treatment: Follow-up with cardiology Treatment Plan: Disposition: Home stable condition Impression: Initial encounter chest pain uncertain etiology This note was generated with [employer] dictation software. It may contain incorrect words, spelling, and punctuation that were not noted in review of the chart prior to signing ED Disposition - Plan for ED Patient: Chief Complaint: Chest Pain Diagnosis: Chest pain Instructions: ED Chest Pain Atypical Unkn Cause Referrals: Madi Tovar MD [STAFF PHYSICIAN] - What to do if you have Problems For any increased pain, shortness of breath, bleeding, nausea or vomiting, chest pain, or any unexpected problems, contact your Primary Care Provider. Call [facility] ([phone]) or report to the closest Emergency Room. Call 911 if necessary. 07/17/18 1200 <Electronically signed by Jero Adams MD> Date Jero Adams MD Cosigner Signature (If Indicated): Date CC: Cathy Wang MD INTERNAL MEDICINE Observed: 07/17/2018 Status: F Source: [facility] OFFICE VISIT 10:40 AM [facility] Internal Medicine [address] [place] [address] [address] [place] [address] OFFICE VISIT Date of Service: 07/14/18 MR#: [id number] Acct: [id number] Name: ANDREY THOMSON Rep #: [id number] : 1970 Provider: Emigdio Clemente NP Age/Sex: 47/F Location: [facility] Status: Signed Intake Vital Signs07/14/18 Body Mass Index (BMI) 35.3 07/14/18 Height 5 ft 6 in Intake Visit Reasons: water retention/scheduled per Dr. Cameron Chief Complaint: Water retention, CP, Is patient in pain?: Yes (Chest) Pain scale (1-10): 4 Allergies Penicillins [PCN] Allergy (Verified 07/17/18 08:46) Hives Sulfa (Sulfonamide Antibiotics) Allergy (Verified 07/17/18 08:46) Hives Medications Albuterol Sulfate [Proventil Hfa] 90 mcg IH Q4H PRN PRN 03/18/14 [History Confirmed 07/17/18] Omeprazole [Prilosec] 20 mg PO PRN PRN 11/10/16 [History Confirmed 07/17/18] blood sugar diagnostic strips See Dose Instructions .ROUTE .MEDSUPPLY #20 ea 08/30/17 [History Confirmed 07/14/18] lancets 33 gauge See Dose Instructions .ROUTE .MEDSUPPLY #100 ea 08/30/17 [History Confirmed 07/14/18] lorazepam 0.5 mg tablet 0.5 mg PO QHS PRN #30 tab 05/22/18 [Rx Confirmed 07/17/18] losartan 100 mg tablet 100 mg PO DAILY #90 tab 06/28/18 [Rx Confirmed 07/17/18] rosuvastatin 10 mg tablet 10 mg PO DAILY #60 tab 06/28/18 [Rx Confirmed 07/17/18] levothyroxine 50 mcg tablet 100 mcg PO QDAY #180 tab 07/13/18 [Rx Confirmed 07/17/18] liothyronine 5 mcg tablet 5 mcg PO DAILY #30 tab 07/13/18 [Rx Confirmed 07/17/18] metoprolol tartrate 25 mg tablet 25 mg PO BID #60 tab 07/14/18 [Rx Confirmed 07/17/18] Metformin HCl 1,000 mg PO BID 07/17/18 [History Confirmed 07/17/18] Metformin HCl [Glucophage] 500 mg PO LUNCH 07/17/18 [History Confirmed 07/17/18] Repaglinide 4 mg PO TIDCM 07/17/18 [History Confirmed 07/17/18] Nurse's Note: [facility] Medical History TORIBIO (obstructive sleep apnea) (Chronic) History of low potassium (Acute) Seasonal allergies (Chronic) Neuropathy (Chronic) Allergic rhinitis (Acute) Asthma (Acute) Chronic fatigue (Acute) Depression (Acute) Diabetes type 2, controlled (Acute) Fatty liver (Acute) GERD (gastroesophageal reflux disease) (Acute) Hypothyroidism (Acute) Low back pain (Acute) Positive P-ANCA titer (Acute) Sleep apnea (Acute) chronic arthralgia of bilat knees (Acute) HTN (hypertension) (Chronic) Surgical History Hx of cholecystectomy (Acute) Family History Father Arthritis Hypertension Hyperlipemia Mother Diabetes Heart disease Hypertension CVA (cerebral vascular accident) Respiratory disease Anxiety and depression Grandfather Lung cancer Grandmother Uterine cancer Skin cancer Diabetes Anxiety and depression Brother Multiple sclerosis Social History Smoking Status: Never smoker second hand exposure: No alcohol intake: current alcohol intake frequency: a few times a month substance use type: does not use what type of physical activity do you participate in: none HPI HPI Chief Complaint: Water retention, CP, Details: ANDREY THOMSON, is a 47 F who presents to the office today for complaints of chest pain and swelling. The patient has a past medical history as listed above. The patient presents today with complaints of chest pain and lower extremity swelling. She states about a week ago she stopped taking her hydrochlorothiazide and started labetalol, since then she has noticed bilateral lower extremity swelling and chest pressure. The chest pressure she states is a 4 out of 10 sternal it does not radiate and she denies nausea, vomiting or diaphoresis. She has not been following a low sodium diet. She denies any other aggravating or alleviating factors the patient otherwise denies any fever, chills, nausea, vomiting,worsening shortness of breath, palpitations, orthopnea, lower extremity edema, syncope or presyncopal episodes. ROS Const Constitutional: No anorexia, body ache, chills, fever(s), decreased energy, malaise, night sweats, weight change, sleep problems, other, snoring, weakness, frequent falls, headache(s), abnormal sleep pattern, change in appetite, excessive sweating or fatigue Eyes Eyes: No blurry vision, change in vision, double vision, discharge, dry eyes, bulging eyes, floaters, eye pain, light sensitivity, spots in vision, tunnel vision, other or visual disturbances ENT ENT: No ear pain, ear discharge, ear pressure, hearing loss, tinnitus, dizziness/vertigo, balance problems, nosebleed/epistaxis, nasal congestion, nasal obstruction, nose pain, sinus pressure, sinus pain, nasal discharge, post nasal drip, facial pain, dental pain, dry mouth, bad breath, hoarseness, mouth lesions, mouth pain, sore throat, difficulty swallowing, neck pain, abnormal hearing, headache(s), other, lip swelling, throat swelling or tongue swelling Resp Respiratory: No cough, change in phlegm color, chest congestion, excessive phlegm production, hemoptysis, pain on inspiration, shortness of breath, pain with cough, snoring, stridor, other or wheezing Cardio Cardiology: Positive for chest pain at rest, chest pain with exertion, shortness of breath and generalized swelling; no leg pain with exertion, dyspnea on exertion, irregular heart rhythm, lightheadedness, orthopnea, radiating jaw, neck or arm pain, fast heart rate, slow heart rate, palpitations, other or excessive sweating Pain scale (1-10): 4 Gastro GI: No abdominal pain, belching, bloating, change in bowel habits, change in stool character, coffee ground emesis, constipation, cramping, diarrhea, heartburn, difficulty swallowing, feeling full early, excessive flatus, incontinent of stools, Vomiting blood/hematemesis, blood in stool, loose stools, Black,tarry stools, nausea/dyspepsia, pain with swallowing, vomiting or other Genitourinary-Female: No difficulty urinating, burning urination, painful urination, urinary incontinence, urinary frequency, urinary urgency, urinary hesitancy, urinary retention, blood in urine, Frequent nighttime urination/ nocturia, post void dribbling, suprapubic fullness, side pain, sexual problems, genital lesions, genital itching, hot flashes, abnormal periods, abnormal vaginal bleeding, absent period, painful periods, light periods, heavy periods, difficulty getting , painful intercourse, pelvic pain, vaginal dryness, vaginal odor, Vaginal Itching or other Musc Musculoskeletal: No joint pain, back pain, deformity, joint swelling, limited range of motion, loss of height, muscle cramps, muscle weakness, decreased muscle mass, body aches, neck pain, radiating pain into limb, stiffness, other, abnormal walking, numbness or tingling Skin Skin: No acne, hair loss, change in hair, nail changes, boil, change in skin color, dry skin, redness, excessive hair growth, yellowing of the skin, lesions, rash, skin pain, skin ulcer, sores, skin swelling, wounds, other or itching Breast Breast: No change in breast shape, breast lump, breast pain, breast skin changes, breast swelling, nipple discharge or other Neuro Neurology: No abnormal walking, abnormal hearing, abnormal movements, abnormal speech, unsteady gait/balance, dizziness, weakness, frequent falls, headache(s), lack of coordination, loss of vision, numbness, tingling, visual disturbances, restless legs, fainting, tremor(s), other, behavioral changes, confusion or memory loss Psych Psychiatric: No abnormal sleep pattern, No lack of enjoyment, No anxiety, No behavioral changes, No change in appetite, No confusion, No depression, No difficulty concentrating, No hopelessness, No irritability, No memory loss, No mood swings, No panic attacks, No paranoia, No Thoughts of harming yourself/Others, No hallucinations, No other Endo Endocrine: No change in body appearance, cold intolerance, excessive sweating, fatigue, flushing, heat intolerance, increased thirst/drinking, increased hunger, increased urination or other Aller/Imm Allergy/Immunologic: No food intolerance, itchy eyes, lip swelling, seasonal allergy symptoms, throat swelling, tongue swelling, hives, wheezing or other Yossi/Lymp Hematologic/Lymphatic: No easy bleeding, easy bruising, enlarged lymph nodes or other Exam Const General: cooperative, comfortable, no acute distress Nutritional Appearance: well nourished, obese Orientation: alert, oriented x3 Limitations: mental status not altered Eyes General: appearance normal, both eyes and all related structures Chest Chest palpation AND inspection: normal inspection of the chest, normal palpation of entire chest wall, no tenderness Resp Effort AND Inspection: normal respiratory effort, able to speak in complete sentences, normal respiratory pattern, symmetric chest movement, no audible wheezes, no cough Auscultation: Bilateral: Clear to Auscultation Cardio Palpation: normal PMI Rate: regular rate Heart Sounds: S1 normal, S2 normal, normal S1 and S2, no click, no gallops, no murmurs, no rubs Musc Musculoskeletal: No muscle weakness Skin General: no rashes or lesions noted, elasticity normal, turgor normal Lesions: no lesions Rashes: no rashes Neuro General: alert, awake, oriented x3, CN's II-XI intact bilaterally Speech: speech normal Gait: normal gait Motor: muscle tone normal throughout Extrem General: normal to inspection, normal gait, no edema, no pedal edema Psych Appearance: grossly normal Mental Status: mental status grossly normal Affect: normal affect Attitude: cooperative Thought Process: normal Assessment AND Plan Problems 1. Chest pain R07.9 2. Bilateral lower extremity edema R60.0 Plan In office EKG shows sinus tachy compared to previous EKG no changes. Will discontinue labetalol and start metoprolol. Patient encouraged low salt diet, low processed foods, lower extremity elevation and compression stockings for swelling. No noticeable lower extremity edema on exam. if this becomes an issue, may restart on hctz 12.5 mg daily. Patient educated on medication side effects. Patient educated on signs and symptoms that would warrant emergency medical care. Pt to call in aweek with symptoms. This note was generated with [employer] dictation software. It may contain incorrect words, spelling, and punctuation that were not noted in checking the note before signing. Orders Orders: Medications New: Discontinued: repaglinide (Prandin) administer4 mg (2 x 2 mg) PO .4 x qd 240 tabsE11.69 Celia Emily within 30 minutes of a meal or sna 3RF ck Discontinued Reason: Order e dited - Discontinuing original orde r Plan Detail Follow Up 2 Weeks Coding Level of Care Code Off vis,est,level 3 Diagnoses Chest pain R07.9 Bilateral lower extremity edema R60.0 07/17/18 1040 <Electronically signed by Emigdio LACEY> Date Emigdio LACEY Cosigner Signature: Date (if applicable) CC: CTA CHEST W/WO Observed: 07/17/2018 Status: F Source: [facility] CONTRAST 10:17 [facility] REPOSITORY [facility] Imaging Services [address] [place] [address] CTA Chest W/WO Contrast MR#: [id number] Acct: [id number] Name: ANDREY THOMSON Rep #: [id number] : 1970 F 47 From: Jj Rivera MD PCP: Cathy Wang MD Status: REG ER Study: CTA Chest W/WO Contrast Date of Exam: 07/17/18 Exam# [id number] Ordering Dr: Jero Adams MD STUDY: CTA CHEST REASON FOR EXAM: Female, 47 years old. 2 day history of chest pain. Recent medication change. RADIATION DOSAGE (If Supplied By Facility): CTDIvol = ( 14.62 ) mGy, DLP = ( 633.35 ) mGycm TECHNIQUE: The examination was performed with the intravenous administration of 100 ml of Isovue 370 contrast material. Post-processing of the angiographic images was performed, with multiplanar reformation and 3D reconstruction. Individualized dose optimization techniques were used for this CT. COMPARISON: None. FINDINGS: Normal enhancement of the main pulmonary artery and right and left pulmonary arteries. Normal enhancement of the bilateral peripheral pulmonary arteries. There is no demonstrated pulmonary embolism. Normal thoracic aorta and visualized great vessels. There is no demonstrated aortic dissection. Normal heart and pericardium. Normal mediastinum. Normal hilar regions. Normal visualized trachea and bronchi. The lungs are well expanded. Minimal increased linear markings in the anterior aspect of the left lower lobe. Minimal pleural thickening at both lung bases. Normal chest wall structures. There are degenerative changes of thoracic spine. There is diffuse fatty infiltration of the liver. CT/CTA Chest W/WO Contrast IMPRESSION: Normal CTA chest examination, without a demonstrated pulmonary embolism or arterial dissection. Electronically Signed: Jj Rivera MD at 11:21 EST Tel [phone], Service support , CC: Narendra Adams MD; Cathy Wang MD Mail Manager: Signed CHEST PA AND LATERAL Observed: 07/17/2018 Status: F Source: [facility] 9:19 AM [facility] REPOSITORY [facility] Imaging Services [address] [place] [address] Chest PA and Lateral MR#: [id number] Acct: [id number] Name: ANDREY THOMSON Rep #: [id number] : 1970 F 47 From: Jj Rivera MD PCP: Cathy Wang MD Status: REG ER Study: Chest PA and Lateral Date of Exam: 07/17/18 Exam# [id number] Ordering Dr: Jero Adams MD STUDY: X-RAY CHEST REASON FOR EXAM: Female, 47 years old. Chest pain. History of asthma. TECHNIQUE: PA and lateral views of the chest. COMPARISON: Comparison is made with prior examination dated January 28, 2017. FINDINGS: EKG electrodes are seen. Mild increased linear markings at the left lung base suggestive of a left basilar atelectasis and/or scarring. This has progressed slightly as compared to prior study. There is no demonstrated pleural abnormality. Normal size heart. Normal mediastinum and sherwin. Normal visualized pulmonary arteries. Normal visualized aortic arch and descending thoracic aorta. There are mild degenerative changes of the visualized thoracic spine. Normal visualized ribs, clavicles, and shoulders. There is no demonstrated abnormality of the visualized soft tissue structures of the upper abdomen. RAD/Chest PA and Lateral IMPRESSION: Minimal increased linear markings at the left lung base suggestive of linear atelectasis and/or scarring. Electronically Signed: Jj Rivera MD at 10:08 EST Tel [phone], Service support , CC: Nraendra Adams MD; Cathy Wang MD Mail Manager: Signed CBC W/DIFF, AUTOMATED Collected: 07/17/2018 Status: F Source: [facility] 9:00 AM [facility] REPOSITORY TYPE CODE TESTS RESULT OUT OF RANGE REFERENCE UNITS LAB L100.1000 4.4-11.0 K/mm3 High WBC 15.0 LAB L100.1200 4.2-5.4 M/mm3 Normal RBC 4.88 LAB L100.1300 12.0-15.0 g/dl Low HGB 11.6 LAB L100.1400 37-47 % Normal HCT 38.1 LAB L100.1500 81-99 fL Low MCV 78.1 LAB L100.1600 27.0-32.0 pg Low MCH 23.8 LAB L100.1700 32-36 g/gl Low MCHC 30.4 LAB L100.1810 11.6-14.6 % High RDW CV 17.1 LAB L100.1820 35.1-43.9 fl High RDW SD 48.3 LAB L100.1900 150-450 K/mm3 High PLT 544 LAB L100.2000 6.2-12.0 fl Normal MPV 10.4 LAB L100.2100 47-70 % Normal NEUT% 67.1 LAB L100.2200 19-41 % Normal LY% 22.6 LAB L100.2300 0-10 % Normal MONO% 5.6 LAB L100.2400 0-5 % Normal EO% 3.7 LAB L100.2500 0-1 % Normal BASO% 0.5 LAB L100.2550 0.0-0.9 % Normal IM GRAN % 0.500 Result Comment: IG% - Immature Granulocytes (promyelocytes, myelocytes and metamyelocytes) > 1% indicates that a LEFT SHIFT is Present. LAB L100.2620 2.0-7.7 X10 3/uL High Absolute Neut 10.1 LAB L100.2720 0.83-4.51 X10 3/ul Normal Absolute Lymph 3.40 Performed By: #### L100.0100 #### [facility] [address] [place], [place], [id number] BASIC METABOLIC Collected: 07/17/2018 Status: F Source: [facility] PROFILE (BMP) 9:00 AM [facility] REPOSITORY TYPE CODE TESTS RESULT OUT OF RANGE REFERENCE UNITS LAB L501.0100 74-106 mg/dL High GLU 181 Result Comment: Fasting Glucose result greater than or equal to 126 mg/dL suggests DIABETES MELLITUS per A.D.A. criteria. Please note revised GLUCOSE reference range effective 2017. LAB L501.1000 7-18 mg/dL Normal BUN 15 LAB L501.1100 0.55-1.02 mg/dL Normal CREAT,SERUM 0.99 Result Comment: The validity of the calculated GFR AND GFRAA in patients over 70 years has not been determined. Clinical correlation is essential. LAB L501.1110 >60 mL/min Normal EST GFR 64 Result Comment: Non- GFR Calc LAB L501.1115 >60 mL/min Normal EST GFR - AA 78 Result Comment: GFR Calc LAB L501.1255 ml/min Normal Estimated CRCL 66.47 LAB L501.1300 10-20 RATIO Normal BUN/CRE 15.2 LAB L501.2200 8.5-10 mg/dL Normal .1 CA 9.7 LAB L501.5300 136-14 mmol/L Normal 5 NA 138 LAB L501.5600 3.5-5. mmol/L Normal 1 K 4.0 LAB L501.5900 98-107 mmol/L Normal CL 102 LAB L501.6100 21.0-3 mmol/L Normal 2.0 CO2 28.0 LAB L501.6200 5-15 Normal GAP 8 Performed By: #### L500.2500, L501.4010 #### [facility] [address] [place], [address] TROPONIN-I Collected: 07/17/2018 Status: F Source: [facility] 9:00 AM [facility] REPOSITORY TYPE CODE TESTS RESULT OUT OF RANGE REFERENCE UNITS LAB L501.4010 <0.045 ng/mL Normal < 0.015 TROPONIN-I Result Comment: TROPONIN-I EXPECTED VALUES <0.045 Negative 0.045 - 0.590 Consistent with Cardiac Damage > OR = 0.600 Critical Value Not every elevated troponin is indicative of TN. These values should be used with clinical judgement in examining the patient's clinical picture for diagnosis. To establish a diagnosis of TN versus myocardial injury, there must be a demonstrated rise and/or fall in the troponin values, in addition to ischemic symptoms, EKG changes, new regional wall motion abnormality, and/or angiographical evidence. PLEASE NOTE: REFERENCE RANGES EDITED 17 Performed By: #### L500.2500, L501.4010 #### [facility] [address] [place], [address] BNP,B-TYPE NATRIURETIC Collected: 07/17/2018 Status: F Source: [place] PEPTIDE 9:00 AM [facility] REPOSITORY TYPE CODE TESTS RESULT OUT OF RANGE REFERENCE UNITS LAB L503.6620 0-100 pg/mL Normal B-TYPE 28.8 REZA PEP Performed By: #### L503.6620 #### [facility] [address] [facility] [place], [address] SCREENING MAMM (CAD), Observed: 07/07/2018 Status: F Source: [facility] BILAT 12:30 PM [facility] REPOSITORY [facility] Imaging Services [address] [place] [address] SCREENING MAMM (CAD), BILAT MR#: [id number] Acct: [id number] Name: ANDREY THOMSON Rep #: [id number] : 1970 F 47 From: Jj Rivera MD PCP: Cathy Wang MD Status: REG [facility] Study: SCREENING MAMM (CAD), BILAT Date of Exam: 07/07/18 Exam# [id number] Ordering Dr: Cathy Wang MD MAMMOGRAPHY - BILATERAL SCREENING REASON FOR EXAM: Female, 47 years old. Routine annual screening examination. PERTINENT HISTORY: Non-contributory. TECHNIQUE: Digital bilateral breast ivet (3D mammographic acquisition) in the CC and MLO projections. 2-D mediolateral oblique (MLO) and craniocaudad (CC) views of both breasts were obtained. CAD: Full Field Digital Mammography with Computer Added Detection was performed. COMPARISON: Comparison is made with a prior examination is May 02, 2013. FINDINGS: Breast Composition: The breasts are heterogeneously dense, which may obscure small masses. There are no dominant masses or suspicious calcifications. No other significant abnormalities are identified. There has been no significant change since the prior study. BI/SCREENING MAMM (CAD), BILAT IMPRESSION: Stable bilateral screening mammogram. Yearly follow-up mammogram recommended. (A) ASSESSMENT CATEGORY: BIRADS Category 1: Negative. A letter regarding these results will be sent to the patient by the facility within 30 days. Approximately 10% of breast cancers are not detected by mammography. A normal mammogram should not delay biopsy of a clinically suspicious abnormality. [id number] Electronically Signed: Jj Rivera MD at 9:37 EST Tel [phone], Service support , CC: Cathy Wang MD Mail Manager: Signed INTERNAL MEDICINE Observed: 07/03/2018 Status: F Source: [facility] OFFICE VISIT 1:37 PM [facility] Internal Medicine [address] [place] [address] [place] [address] OFFICE VISIT Date of Service: 06/28/18 MR#: [id number] Acct: [id number] Name: ANDREY THOMSON Scarlett Rep #: [id number] : 1970 Provider: Cathy Wang MD Age/Sex: 47/F Location: [facility] Status: Signed Intake Vital Signs06/28/18 Height 5 ft 6 in 06/28/18 Weight: 219 lb 06/28/18 Body Mass Index (BMI) 35.3 06/28/18 Blood Pressure 112/74 Intake Visit Reasons: 1 mo f/u Chief Complaint: 1 Mo FU Is patient in pain?: No Allergies Penicillins [PCN] Allergy (Verified 06/28/18 16:43) Hives Sulfa (Sulfonamide Antibiotics) Allergy (Verified 06/28/18 16:43) Hives Medications Albuterol Sulfate [Proventil Hfa] 90 mcg IH Q4H PRN PRN 03/18/14 [History Confirmed 06/28/18] Liothyronine Sodium [Cytomel] 5 mcg PO DAILY 03/18/14 [History Confirmed 06/28/18] Omeprazole [Prilosec] 20 mg PO PRN PRN 11/10/16 [History Confirmed 06/28/18] blood sugar diagnostic strips See Dose Instructions .ROUTE .MEDSUPPLY #20 ea 08/30/17 [History Confirmed 06/28/18] lancets 33 gauge See Dose Instructions .ROUTE .MEDSUPPLY #100 ea 08/30/17 [History Confirmed 06/28/18] levothyroxine 50 mcg tablet See Rx Instructions PO QDAY #104 tab 11/08/17 [Rx Confirmed 06/28/18] metformin 1,000 mg tablet 1,000 mg PO .COMPLEX #225 tab 12/06/17 [Rx Confirmed 06/28/18] repaglinide 2 mg tablet 4 mg PO .4 x qd #240 tab 04/18/18 [Rx Confirmed 06/28/18] lorazepam 0.5 mg tablet 0.5 mg PO QHS PRN #30 tab 05/22/18 [Rx Confirmed 06/28/18] labetalol 100 mg tablet 50 mg PO BID #60 tab 06/28/18 [Rx Confirmed 06/28/18] losartan 100 mg tablet 100 mg PO DAILY #90 tab 06/28/18 [Rx Confirmed 06/28/18] rosuvastatin 10 mg tablet 10 mg PO DAILY #60 tab 06/28/18 [Rx Confirmed 06/28/18] [facility] Medical History TORIBIO (obstructive sleep apnea) (Chronic) History of low potassium (Acute) Seasonal allergies (Chronic) Neuropathy (Chronic) Allergic rhinitis (Acute) Asthma (Acute) Chronic fatigue (Acute) Depression (Acute) Diabetes type 2, controlled (Acute) Fatty liver (Acute) GERD (gastroesophageal reflux disease) (Acute) Hypothyroidism (Acute) Low back pain (Acute) Positive P-ANCA titer (Acute) Sleep apnea (Acute) chronic arthralgia of bilat knees (Acute) HTN (hypertension) (Chronic) Surgical History Hx of cholecystectomy (Acute) Family History Father Arthritis Hypertension Hyperlipemia Mother Diabetes Heart disease Hypertension CVA (cerebral vascular accident) Respiratory disease Anxiety and depression Grandfather Lung cancer Grandmother Uterine cancer Skin cancer Diabetes Anxiety and depression Brother Multiple sclerosis Social History Smoking Status: Never smoker second hand exposure: No alcohol intake: current alcohol intake frequency: a few times a month substance use type: does not use what type of physical activity do you participate in: none HPI HPI Chief Complaint: 1 Mo FU Details: ANDREY THOMSON, is a 47yo F who presents to the office today for for follow up. She was seen about a month ago with some concerns chief of which was shortness of breath which was said to be worsening. She has since had an ECHO which did not show any overt concerns and an EKG which showed mild sinus tachycardia. She does admit to have noted some improvement since using her Cpap consistently. She denies Chest pain, syncope or near syncopal events. ROS Const Constitutional: No chills, fatigue, fever(s), frequent falls, malaise, weakness, sleep problems or change in appetite Eyes Eyes: No blurry vision, change in vision, double vision, discharge or visual disturbances ENT ENT: No abnormal hearing, ear pain, ear pressure, tinnitus or dizziness/vertigo Resp Respiratory: No cough or wheezing Cardio Cardiology: No chest pain at rest, chest pain with exertion, shortness of breath, dyspnea on exertion, generalized swelling, irregular heart rhythm, lightheadedness, orthopnea, fast heart rate or palpitations Gastro GI: No abdominal pain, change in bowel habits, constipation, diarrhea, nausea/dyspepsia or vomiting Genitourinary-Female: No difficulty urinating, burning urination, painful urination, urinary incontinence, urinary frequency, urinary urgency, urinary hesitancy, urinary retention, Frequent nighttime urination/ nocturia, sexual problems, genital lesions, abnormal vaginal bleeding, pelvic pain, vaginal dryness, vaginal odor or Vaginal Itching Musc Musculoskeletal: No joint pain, back pain, joint swelling, limited range of motion, numbness or tingling Skin Skin: No change in skin color, itching, rash or wounds Breast Breast: No breast lump or breast pain Neuro Neurology: No frequent falls, weakness, visual disturbances, abnormal hearing, numbness, tingling, unsteady gait/balance, dizziness, loss of vision or memory loss Psych Psychiatric: No change in appetite, No memory loss, No anxiety, No depression, No Thoughts of harming yourself/Others Endo Endocrine: No fatigue, heat intolerance, increased thirst/drinking, increased hunger or increased urination Aller/Imm Allergy/Immunologic: No wheezing, itchy eyes or seasonal allergy symptoms Yossi/Lymp Hematologic/Lymphatic: No easy bleeding, easy bruising or enlarged lymph nodes Exam Const General: cooperative, no acute distress Orientation: alert, awake, oriented x3 HENMT Head: atraumatic, normocephalic, normal to inspection Ears: hearing grossly normal bilaterally Resp Effort AND Inspection: normal respiratory effort, able to speak in complete sentences Auscultation: Bilateral: Clear to Auscultation Cardio Rate: tachycardic Rhythm: regular rhythm Heart Sounds: S1 normal, S2 normal GI Palpation: soft, no hepatosplenomegaly Neuro General: alert, awake, oriented x3, moves all extremities, CN's II-XI intact bilaterally Extrem General: no clubbing, cyanosis or edema Psych Appearance: grossly normal Mental Status: mental status grossly normal Mood: congruent mood Affect: normal affect Assessment AND Plan 1. Shortness of breath R06.02 Plan Modest improvement in the past month. ECHO and EKG with no significant concerns. Asthma is also said to be stable and she only uses her inhaler sparingly. Life style modifications discussed. If symptoms persist, will consider a PFT. 2. Sinus tachycardia R00.0 Plan Chronic history of. Occasionally said to go as high as the 150's. Will DC HCTZ and start on Labetalol, if poorly tolerant, will switch to a cardio selective B alvarez. Follow up in 1 month. 3. Hyperlipidemia associated with type 2 diabetes mellitus E11.69; E78.5 Plan LDL not at goal. Will start on Rosuvastatin 10mg daily. Life style and dietary modifications discussed. Possibly consider the why weight program at next visit 4. TORIBIO (obstructive sleep apnea) G47.33 Plan Doing better with her Cpap and compliance. Patient was encouraged. Referred to the sleep lab for refitting. 5. Essential hypertension I10 Plan Optimally controlled. Medication adjustment as above. Follow up in 1 month. Plan Detail Other Medications New: Discontinued: losartan-hydrochlorothiazide 100-25 mg Discontinued Reason:1 tab PO DAILY 90 tabs 3RF Order Changed Coding Level of Care Code Off vis,est,level 4 Diagnoses Shortness of breath R06.02 Sinus tachycardia R00.0 Hyperlipidemia associated with type 2 diabetes mellitus E11.69; E78.5 TORIBIO (obstructive sleep apnea) G47.33 Essential hypertension I10 Hypertension type: essential hypertension 07/03/18 1337 <Electronically signed by Cathy Wang MD> Date Cathy Wang MD Cosigner Signature: Date (if applicable) CC: ENDOCRINOLOGY VISIT Observed: 06/07/2018 Status: F Source: [place] REPORT 7:36 AM [facility] REPOSITORY [facility] [address] [place] [address]. [address] [place] [address] OFFICE VISIT Date of Service: 06/06/18 MR#: [id number] Acct: [id number] Name: ANDREY THOMSON Rep #: [id number] : 1970 Provider: Patricia Harmon NP Age/Sex: 47/F [place] [facility] [place] Signed HPI History of present illness Andrey Thomson is a 47 year old female who presents for follow up of diabetes type 2. She continues on metformin, prandin diet and exercise for control. No issues with metformin. Taking as directed. Appetite has been good. Since our last visit she denies excessive thirst, increased frequency of urination, chest pain or dyspnea. Follows a diabetic diet, Is compliant with medication and is tolerating without side effects. At time of visit: -Pt denies symptoms of hypertensive emergency (CP,SOB,PETERSON, or blurred vision) and hypotension(dizziness or lightheadedness) -Pt denies symptoms of hypoglycemia ( sweaty, confusion, anxiety, tremor, hunger, palpitations) and hyperglycemia ( polydipsia, polyuria) -Pt denies potential medication adverse effect. Hypoglycemia Aware of hypoglycemia: yes Able to self treat low BG: Yes Frequent low Blood sugar: No Has supply of glucagon: no SMBG Average BG 180 Lowest BG 106 3 checks daily. 3 meals Trying to eat healthy Can count carbs Exam Const General: comfortable, no acute distress, ill appearing Orientation: oriented x3 HENMT Head: normal to inspection, atraumatic Ears: hearing grossly normal bilaterally Mouth: oral mucosae normal, moist mucous membranes Teeth and gingiva: dentition normal Eyes General: appearance normal, both eyes and all related structures Conjunctivae: conjunctivae normal Sclera: sclerae normal Neck Neck: normal visual inspection Neck mass: No Chest Chest palpation AND inspection: deferred Resp Effort AND Inspection: cough, normal respiratory effort, able to speak in complete sentences Auscultation: Bilateral: Clear to Auscultation Cardio Rate: regular rate Rhythm: regular rhythm Heart Sounds: S1 normal, S2 normal GI Inspection: normal to inspection Auscultation: normal bowel sounds Palpation: soft, no guarding General: deferred Diabetic Foot Pulses: L dorsalis pedis pulse: normal, R dorsalis pedis pulse: normal Monofilament test: Left foot: normal, Right foot: normal Neuro General: moves all extremities Cranial Nerves: CN's II-XI intact bilaterally Speech: speech normal Gait: normal gait Extrem General: normal to inspection, full ROM, normal capillary refill Psych Appearance: well kempt Mood: congruent mood Affect: normal affect Speech and Movement: speech and movement normal Attitude: cooperative Thought Process: normal Judgment: judgment good Type: type 2 Glucose control symptoms: Reports high post-meal glucose Weight and fatigue symptoms: Denies snoring Cardiopulmonary symptoms: Denies chest pain at rest, dyspnea on exertion, lightheadedness or myalgias GI symptoms: Reports nausea/dyspepsia; denies constipation, diarrhea or vomiting Other symptoms: Denies blurry vision or change in vision Pertinent visit history: Denies recent visit to ER, recent 911 calls or recent hospital admission Intake Vital Signs06/06/18 Height 5 ft 6 in 06/06/18 Weight: 216 lb 06/06/18 Body Mass Index (BMI) 34.8 06/06/18 Blood Pressure 118/82 H 06/06/18 Blood Pressure Location Lt popliteal 10/23/18 Blood Pressure Position Sitting Intake Visit Reasons: Diabetes follow-up Shoder Filler Required: No Accompanied by: Self Allergies Penicillins [PCN] Allergy (Verified 06/06/18 09:16) Hives Sulfa (Sulfonamide Antibiotics) Allergy (Verified 06/06/18 09:16) Hives Medications Albuterol Sulfate [Proventil Hfa] 90 mcg IH Q4H PRN PRN 03/18/14 [History Confirmed 06/06/18] Liothyronine Sodium [Cytomel] 5 mcg PO DAILY 03/18/14 [History Confirmed 06/06/18] Omeprazole [Prilosec] 20 mg PO PRN PRN 11/10/16 [History Confirmed 06/06/18] blood sugar diagnostic strips See Dose Instructions .ROUTE .MEDSUPPLY #20 ea 08/30/17 [History Confirmed 06/06/18] lancets 33 gauge See Dose Instructions .ROUTE .MEDSUPPLY #100 ea 08/30/17 [History Confirmed 06/06/18] pediatric multivitamin chewable tablet 2 tab PO QDAY ea 08/30/17 [History Confirmed 06/06/18] potassium chloride ER 20 mEq tablet,extended release(part/cryst) 20 meq PO QDAY 08/30/17 [History Confirmed 06/06/18] levothyroxine 50 mcg tablet See Rx Instructions PO QDAY #104 tab 11/08/17 [Rx Confirmed 06/06/18] losartan 100 mg-hydrochlorothiazide 25 mg tablet 1 tab PO DAILY #90 tab 11/09/17 [Rx Confirmed 06/06/18] metformin 1,000 mg tablet 1,000 mg PO .COMPLEX #225 tab 12/06/17 [Rx Confirmed 06/06/18] sitagliptin 100 mg tablet 100 mg PO QDAY #30 tab 12/06/17 [Rx Confirmed 06/06/18] repaglinide 2 mg tablet 4 mg PO .4 x qd #240 tab 04/18/18 [Rx Confirmed 06/06/18] lorazepam 0.5 mg tablet 0.5 mg PO QHS PRN #30 tab 05/22/18 [Rx Confirmed 06/06/18] Nurse's Note: blood sugars : low : 105 high : 207 PFSH Medical History TORIBIO (obstructive sleep apnea) (Chronic) History of low potassium (Acute) Seasonal allergies (Chronic) Neuropathy (Chronic) Allergic rhinitis (Acute) Asthma (Acute) Chronic fatigue (Acute) Depression (Acute) Diabetes type 2, controlled (Acute) Fatty liver (Acute) GERD (gastroesophageal reflux disease) (Acute) Hypothyroidism (Acute) Low back pain (Acute) Positive P-ANCA titer (Acute) Sleep apnea (Acute) chronic arthralgia of bilat knees (Acute) HTN (hypertension) (Chronic) Surgical History Hx of cholecystectomy (Acute) Family History Father Arthritis Hypertension Hyperlipemia Mother Diabetes Heart disease Hypertension CVA (cerebral vascular accident) Respiratory disease Anxiety and depression Grandfather Lung cancer Grandmother Uterine cancer Skin cancer Diabetes Anxiety and depression Brother Multiple sclerosis Social History Smoking Status: Never smoker second hand exposure: No alcohol intake: current alcohol intake frequency: a few times a month substance use type: does not use what type of physical activity do you participate in: none ROS Const Constitutional: No anorexia, body ache, chills, fatigue, fever(s), frequent falls, decreased energy, malaise, night sweats, weakness, weight change, sleep problems, abnormal sleep pattern, change in appetite, other, headache(s), snoring or excessive sweating Eyes Eyes: No blurry vision, change in vision, double vision, discharge, dry eyes, bulging eyes, floaters, visual disturbances, eye pain, light sensitivity, spots in vision, tunnel vision or other ENT ENT: Positive for nasal congestion, nasal discharge and sore throat; no abnormal hearing, ear pain, ear discharge, ear pressure, hearing loss, tinnitus, dizziness/vertigo, balance problems, nosebleed/epistaxis, nasal obstruction, nose pain, sinus pressure, sinus pain, post nasal drip, headache(s), facial pain, dental pain, dry mouth, bad breath, hoarseness, lip swelling, mouth lesions, mouth pain, tongue swelling, throat swelling, other, difficulty swallowing or neck pain Resp Respiratory: Positive for cough, shortness of breath and wheezing; no change in phlegm color, chest congestion, excessive phlegm production, hemoptysis, pain on inspiration, pain with cough, snoring, stridor or other Cardio Cardiology: Positive for generalized swelling; no chest pain at rest, chest pain with exertion, leg pain with exertion, excessive sweating, shortness of breath, dyspnea on exertion, irregular heart rhythm, lightheadedness, orthopnea, radiating jaw, neck or arm pain, fast heart rate, slow heart rate, palpitations or other Gastro GI: Positive for nausea/dyspepsia; no abdominal pain, belching, bloating, change in bowel habits, change in stool character, coffee ground emesis, constipation, cramping, diarrhea, heartburn, difficulty swallowing, feeling full early, excessive flatus, incontinent of stools, Vomiting blood/hematemesis, blood in stool, loose stools, Black,tarry stools, pain with swallowing, vomiting or other Genitourinary-Female: No difficulty urinating, burning urination, painful urination, urinary incontinence, urinary frequency, urinary urgency, urinary hesitancy, urinary retention, blood in urine, Frequent nighttime urination/ nocturia, post void dribbling, suprapubic fullness, side pain, sexual problems, genital lesions, genital itching, hot flashes, abnormal periods, abnormal vaginal bleeding, absent period, painful periods, light periods, heavy periods, difficulty getting , painful intercourse, pelvic pain, vaginal dryness, vaginal odor, Vaginal Itching or other Musc Musculoskeletal: No abnormal walking, joint pain, back pain, deformity, joint swelling, limited range of motion, loss of height, muscle cramps, muscle weakness, decreased muscle mass, body aches, neck pain, numbness, radiating pain into limb, stiffness, tingling or other Skin Skin: No acne, hair loss, change in hair, nail changes, boil, change in skin color, dry skin, redness, excessive hair growth, yellowing of the skin, lesions, itching, rash, skin pain, skin ulcer, sores, skin swelling, wounds or other Breast Breast: No other Neuro Neurology: No frequent falls, weakness, visual disturbances, abnormal hearing, headache(s), abnormal walking, numbness or tingling Psych Psychiatric: No abnormal sleep pattern, No change in appetite Endo Endocrine: No fatigue, other or excessive sweating Aller/Imm Allergy/Immunologic: Positive for wheezing; no lip swelling, tongue swelling, throat swelling or itchy eyes Assessment AND Plan 1. Type 2 diabetes mellitus without complication, without long-term current use of insulin E11.9 Plan Patient doing very well with prandin. Stopped her januvia as she kept forgetting to take and her BG continued to do well. She is having issues with sinus tachycardia and is worried about exercise. She does have appointment to follow up results of echo so I have told her to be sure to find out what if any limitations she has has with exercise. No side effects with her medications. TSH in range. Taking medication as directed. Orders Orders: 2. Hyperlipidemia associated with type 2 diabetes mellitus E11.69; E78.5 Medications On Hold: 3. Hypothyroidism (acquired) E03.9 Plan Detail Additional Comments 1. Please schedule follow up in 3 months. 2. Lab work one week before appointment. 3. Discussed importance of regular exercise and recommend starting or continuing a regular exercise program for good health. 4. The patient was encouraged to lose weight for good health 5. The importance of monitoring blood sugar regularly was reviewed. 6. The importance of monitoring the HBA1c level regularly was reviewed. 7. The importance of prper foot care and regularly checking feet to prevent sores and loss of limbs was reviewed. 8. The importance of keeping BP at or below 130/80 to prevent stroke, heart attacks, kidney failure, blindness was reviewed. Spent approximately 30 minutes with patient with over 50% of time spent in discussion and counseling regarding medication adjustment, symptoms and treatment of hypoglycemia, diet adherence, and checking BG before driving. Coding Level of Care Code Off vis,est,level 4 Diagnoses Type 2 diabetes mellitus without complication, without long- term current use of insulin E11.9 Diabetes mellitus complication status: without complication Diabetes mellitus intermediate insulin use: without accounting officer use Hyperlipidemia associated with type 2 diabetes mellitus E11.69; E78.5 Hypothyroidism (acquired) E03.9 06/07/18 0736 <Electronically signed by Patricia LACEY> Date Patricia LACEY Cosigner Signature: Date (if applicable) CC: 12 LEAD ELECTROCARDIOGRAM Observed: 06/01/2018 Status: F Source: [place] 10:22 AM [facility] Cardiovascular Services [address] [place] [address] 12 Lead EKG 05/29/18 1555 MR#: [id number] Acct: [id number] Name: ANDREY THOMSON Rep #: [id number] : 1970 47 From: Clay Suresh MD Attending Dr: Cathy Wang MD Status: REG CLI Ordering Dr: Cathy Wang MD Date: 05/29/18 Location: [facility] Sex: F C Admitted: Test Reason : SOB Blood Pressure : / mmHG Vent. Rate : 102 BPM Atrial Rate : 102 BPM P-R Int : 136 ms QRS Dur : 074 ms QT Int : 354 ms P-R-T Axes : 031 -03 011 degrees QTc Int : 461 ms Sinus tachycardia Otherwise normal ECG Confirmed by DEMETRICE BUENO, CLAY ([id number]), television news video editor SALO MAYFIELD ([id number]) on 06/01/2018 10:21:33 AM Referred By: Cathy Wang Confirmed By:CLAY SURESH MD 06/01/18 1021 Date Clay Suresh MD CC: Cathy Wang MD Signed ECHOCARDIOGRAM COMPLETE Observed: 05/30/2018 Status: F Source: [place] 10:26 AM [facility] REPOSITORY [facility] Cardiovascular Services [address] [place] [address] Echo Complete 05/29/18 1605 MR#: [id number] Acct: [id number] Name: ANDREY THOMSON Rep #: [id number] : 1970 47 From: Madi Tovar MD Attending Dr: Cathy Wang MD Status: REG CLI Ordering Dr: Cathy Wang MD Date: 05/29/18 Location: [facility] Sex: F C Admitted: Reason For Study: SOB Procedure This was a 2D Doppler, Color Flow transthoracic echocardiogram. Exam performed in department. Left Ventricle Normal LV size. Left ventricular systolic function is normal. The estimated ejection fraction is 55 %. Normal diastology for age. No regional wall motion abnormalities noted. Right Ventricle Normal RV size. Normal systolic function. Atria Normal left atrium. Normal right atrium. Mitral Valve Normal mitral valve. Tricuspid Valve Normal tricuspid valve. Aortic Valve Normal aortic valve. Trisinus/trileaflet aortic valve. Pulmonic Valve Normal pulmonic valve. Great Vessels Normal aortic root. The pulmonary artery is normal size. Normal inferior vena cava. Pericardium/Pleural No pericardial effusion. MMode/2D Measurements AND Calculations LVIDd: 4.3 cm IVSd: 0.78 cm Ao root diam: 2.9 cm LVIDs: 2.8 cm LVPWd: 0.82 cm LA dimension: 3.6 cm RVDd: 3.1 cm FS: 33.7 % LAV(MOD-bp): 32.0 ml LA A4 area: 13.2 cm2 RA A4 area: 10.6 cm2 LAV(MOD-bp) Indexed: 15.7 ml/m2 LAV(MOD-sp2): 32.2 ml LAV(MOD-sp4): 29.3 ml Time Measurements MV dec time: 0.19 sec Doppler Measurements AND Calculations MV E max jonathan: 86.4 cm/sec Lat Peak E' Jonathan: 10.1 cm/sec Med Peak E' Jonathan: 8.3 cm/sec MV A max jonathan: 67.7 cm/sec E/E' lat: 8.5 E/E' med: 10.4 MV E/A: 1.3 Ao V2 max: 143.5 cm/sec LV V1 max: 121.7 cm/sec PA V2 max: 112.5 cm/sec Ao max P.2 mmHg LV V1 max P.9 mmHg Interpretation Summary Normal LV size. Left ventricular systolic function is normal. The estimated ejection fraction is 55 %. Normal diastology for age. Ordering Physician: Cathy Wang Referring Physician: Cathy Wang Performed By: Jocelyn Houser, GONZALEZ, RVT 05/30/18 1026 Date Madi Tovar MD CC: Cathy Wang MD Date Dictated: 05/29/18 1605 Date Transcribed: 05/30/18 1026 Mail Manager: Signed CBC W/DIFF, AUTOMATED Collected: 05/29/2018 Status: F Source: [place] 7:32 AM [facility] REPOSITORY TYPE CODE TESTS RESULT OUT OF RANGE REFERENCE UNITS LAB L100.1000 4.4-11.0 K/mm3 High WBC 15.6 LAB L100.1200 4.2-5.4 M/mm3 Normal RBC 4.92 LAB L100.1300 12.0-15.0 g/dl Normal HGB 12.0 LAB L100.1400 37-47 % Normal HCT 39.1 LAB L100.1500 81-99 fL Low MCV 79.5 LAB L100.1600 27.0-32.0 pg Low MCH 24.4 LAB L100.1700 32-36 g/gl Low MCHC 30.7 LAB L100.1810 11.6-14.6 % High RDW CV 16.2 LAB L100.1820 35.1-43.9 fl High RDW SD 46.9 LAB L100.1900 150-450 K/mm3 High PLT 502 LAB L100.2000 6.2-12.0 fl Normal MPV 10.3 LAB L100.2100 47-70 % Normal NEUT% 68.3 LAB L100.2200 19-41 % Normal LY% 22.4 LAB L100.2300 0-10 % Normal MONO% 5.9 LAB L100.2400 0-5 % Normal EO% 2.9 LAB L100.2500 0-1 % Normal BASO% 0.2 LAB L100.2550 0.0-0.9 % Normal IM GRAN % 0.300 Result Comment: IG% - Immature Granulocytes (promyelocytes, myelocytes and metamyelocytes) > 1% indicates that a LEFT SHIFT is Present. LAB L100.2620 2.0-7.7 X10 3/uL High Absolute Neut 10.6 LAB L100.2720 0.83-4.51 X10 3/ul Normal Absolute Lymph 3.49 Performed By: #### L100.0100, L500.4100, L501.9520 #### [facility] [address] [place], [address] LIPID PROFILE Collected: 05/29/2018 Status: F Source: [place] 7:32 AM [facility] REPOSITORY TYPE CODE TESTS RESULT OUT OF RANGE REFERENCE UNITS LAB L501.4900 200 mg/dL Normal CHOL 194 Result Comment: <200 mg/dL Desirable 200-240 mg/dL Borderline >240 mg/dL High Risk LAB L501.5000 mg/dL Normal TRIG 123 Result Comment: The drugs N-Acetylcysteine and Metamizole may falsely depress this assay. Serum Triglycerides Reference Interval Normal <150 mg/dL Borderline high 150 - 199 mg/dL High 200 - 499 mg/dL Very High > or = 500 mg/dL LAB L501.6400 mg/dL Normal HDL 40 Result Comment: The drugs N-Acetylcysteine and Metamizole may falsely depress this assay. Reference Range HDL <40 mg/dL Low HDL Cholesterol HDL >or= 60 mg/dL High HDL Cholesterol LAB L501.6500 0-130 mg/dL Normal LDL 129 LAB L501.6600 5-40 mg/dL Normal VLDL 25 Performed By: #### L100.0100, L500.4100, L501.9520 #### [facility] [address] [place], [address] THYROID STIM HORMONE Collected: 05/29/2018 Status: F Source: [place] (TSH) 7:32 AM [facility] REPOSITORY TYPE CODE TESTS RESULT OUT OF RANGE REFERENCE UNITS LAB L501.9520 0.358-3.74 uIU/mL Normal TSH 2.44 Performed By: #### L100.0100, L500.4100, L501.9520 #### [facility] [address] [place], [address] INTERNAL MEDICINE Observed: 05/23/2018 Status: F Source: [place] OFFICE VISIT 2:30 PM [facility] REPOSITORY [facility] [address] [place] [address] OFFICE VISIT Date of Service: 05/22/18 MR#: [id number] Acct: [id number] Name: ANDREY THOMSON Rep #: [id number] : 1970 Provider: Cathy Wang MD Age/Sex: 47/F Location: [facility] Status: Signed Intake Vital Signs05/22/18 Height 5 ft 6 in Intake Visit Reasons: EST CARE Chief Complaint: SOB with exercise Is patient in pain?: No Allergies Penicillins [PCN] Allergy (Verified 12/06/17 08:01) Hives Sulfa (Sulfonamide Antibiotics) Allergy (Verified 12/06/17 08:01) Hives Medications Albuterol Sulfate [Proventil Hfa] 90 mcg IH Q4H PRN PRN 03/18/14 [History Confirmed 05/22/18] Liothyronine Sodium [Cytomel] 5 mcg PO DAILY 03/18/14 [History Confirmed 05/22/18] Omeprazole [Prilosec] 20 mg PO PRN PRN 11/10/16 [History Confirmed 05/22/18] blood sugar diagnostic strips See Dose Instructions .ROUTE .MEDSUPPLY #20 ea 08/30/17 [History Confirmed 05/22/18] lancets 33 gauge See Dose Instructions .ROUTE .MEDSUPPLY #100 ea 08/30/17 [History Confirmed 05/22/18] pediatric multivitamin chewable tablet 2 tab PO QDAY ea 08/30/17 [History Confirmed 12/06/17] potassium chloride ER 20 mEq tablet,extended release(part/cryst) 20 meq PO QDAY 08/30/17 [History Confirmed 12/06/17] levothyroxine 50 mcg tablet See Rx Instructions PO QDAY #104 tab 11/08/17 [Rx Confirmed 05/22/18] losartan 100 mg-hydrochlorothiazide 25 mg tablet 1 tab PO DAILY #90 tab 11/09/17 [Rx Confirmed 05/22/18] metformin 1,000 mg tablet 1,000 mg PO .COMPLEX #225 tab 12/06/17 [Rx Confirmed 12/06/17] sitagliptin 100 mg tablet 100 mg PO QDAY #30 tab 12/06/17 [Rx Confirmed 05/22/18] repaglinide 2 mg tablet 4 mg PO .4 x qd #240 tab 04/18/18 [Rx Confirmed 05/22/18] Is last menstrual period known: Yes PFSH Medical History TORIBIO (obstructive sleep apnea) (Chronic) History of low potassium (Acute) Seasonal allergies (Chronic) Neuropathy (Chronic) Allergic rhinitis (Acute) Asthma (Acute) Chronic fatigue (Acute) Depression (Acute) Diabetes type 2, controlled (Acute) Fatty liver (Acute) GERD (gastroesophageal reflux disease) (Acute) Hypothyroidism (Acute) Low back pain (Acute) Positive P-ANCA titer (Acute) Sleep apnea (Acute) chronic arthralgia of bilat knees (Acute) HTN (hypertension) (Chronic) Surgical History Hx of cholecystectomy (Acute) Family History Father Arthritis Hypertension Hyperlipemia Mother Diabetes Heart disease Hypertension CVA (cerebral vascular accident) Respiratory disease Anxiety and depression Grandfather Lung cancer Grandmother Uterine cancer Skin cancer Diabetes Anxiety and depression Brother Multiple sclerosis Social History Smoking Status: Never smoker second hand exposure: No alcohol intake: current alcohol intake frequency: a few times a month substance use type: does not use what type of physical activity do you participate in: none HPI HPI Chief Complaint: SOB with exercise Details: ANDREY THOMSON, is a 47yo F who presents to the office today to establish care. She has past medical history of sleep apnea, (noncompliant with CPAP), poorly controlled diabetes mellitus type 2, stable asthma, hypothyroidism and hypertension. He is concerned about worsening shortness of breath with activity. This is said to have been ongoing for months. Shortness of breath is said to be present even with minimal activity. She denies chest tightness, pain or palpitations. She states the symptoms are different from her asthma symptoms and she only has to use her inhalers as needed. Has a chronic history of sleep apnea but has been poorly compliant with his CPAP due to increased anxiety with use. She has tried different mask without any significant improvement. ROS Const Constitutional: No weight change, body ache, chills, fatigue, sleep problems, fever(s), change in appetite, snoring, weakness, frequent falls, headache(s) or excessive sweating Eyes Eyes: No change in vision, eye pain, light sensitivity or blurry vision ENT ENT: No headache(s), abnormal hearing, ear pain, tinnitus, nasal congestion, sore throat or neck pain Resp Respiratory: Positive for shortness of breath sob: SOB with activity; no snoring, cough or wheezing Cardio Cardiology: No excessive sweating, chest pain at rest, chest pain with exertion, shortness of breath, dyspnea on exertion, palpitations, orthopnea or lightheadedness Gastro GI: No abdominal pain, change in bowel habits, constipation, diarrhea, vomiting, nausea/dyspepsia or cramping Genitourinary-Female: Positive for heavy periods and painful periods; no burning urination, painful urination, urinary incontinence, urinary frequency, abnormal vaginal bleeding, pelvic pain or other Musc Musculoskeletal: No neck pain, abnormal walking, joint pain, back pain, limited range of motion, numbness or tingling Skin Skin: No redness, dry skin, itching, lesions, wounds or rash Neuro Neurology: No weakness, frequent falls, headache(s), abnormal hearing, abnormal walking, numbness, tingling, abnormal speech, dizziness or memory loss Psych Psychiatric: No change in appetite, No memory loss, No Thoughts of harming yourself/Others Endo Endocrine: No fatigue, excessive sweating, cold intolerance, increased thirst/drinking, heat intolerance, flushing or increased hunger Aller/Imm Allergy/Immunologic: No wheezing, itchy eyes, hives or seasonal allergy symptoms Yossi/Lymp Hematologic/Lymphatic: No easy bleeding, easy bruising or enlarged lymph nodes Exam Const General: cooperative, no acute distress Orientation: alert, awake, oriented x3 HENMT Head: atraumatic, normocephalic, normal to inspection Ears: hearing grossly normal bilaterally Neck Neck: normal visual inspection, full ROM, no lymphadenopathy Neck mass: No Thyroid: thyroid normal Resp Effort AND Inspection: normal respiratory effort, able to speak in complete sentences Auscultation: Bilateral: Clear to Auscultation Cardio Rate: regular rate Rhythm: regular rhythm Heart Sounds: S1 normal, S2 normal GI Palpation: soft, no hepatosplenomegaly Neuro General: alert, awake, oriented x3, moves all extremities, CN's II-XI intact bilaterally Extrem General: no clubbing, cyanosis or edema Psych Appearance: grossly normal Mental Status: mental status grossly normal Mood: congruent mood Affect: normal affect Assessment AND Plan 1. Shortness of breath R06.02 Plan Said to be ongoing for couple of months. Appears to be worsening. Denies shortness of breath at rest however present with minimal activity. No chest pain, palpitations, syncopal or near syncopal episodes. Possibilities include pulmonary hypertension due to poorly controlled sleep apnea. Also has a significant family history of heart disease. EKG and 2D echo ordered. Compliance with CPAP strongly encouraged. Follow-up in 1 month. Orders Orders: 2. TORIBIO (obstructive sleep apnea) G47.33 Plan Compliance noted as above. Ativan 0.5 mg nightly as needed to help with increased anxiety/claustrophobia. Follow-up in 1 month. Orders Orders: 3. Essential hypertension I10 BP controlled. Plan Stable. Continue current medication. Continue lifestyle/dietary modifications. 4. Hyperlipidemia associated with type 2 diabetes mellitus E11.69; E78.5 Plan Lipid profile ordered. Follow-up with results. 5. Acquired hypothyroidism E03.9 TSH 1.54 No change Plan Stable. Last thyroid function within normal. No concerns for over/under correction. Thyroid function studies ordered. Orders Orders: 6. Health care maintenance Z00.00 Plan Mammogram ordered. Referred to gynecology for Pap smear. Scheduled to receive her flu shot at work. This note was generated with [employer] dictation software. It may contain incorrect words, spelling, and punctuation that were not noted in checking the note before signing. Orders Referrals: Plan Detail Other Orders Orders: Coding Level of Care Code Off vis,new,level 4 Diagnoses Shortness of breath R06.02 TORIBIO (obstructive sleep apnea) G47.33 Essential hypertension I10 Hypertension type: essential hypertension Hyperlipidemia associated with type 2 diabetes mellitus E11.69; E78.5 Acquired hypothyroidism E03.9 Health care maintenance Z00.00 05/23/18 1430 <Electronically signed by Cathy Wang MD> Date Cathy Wang MD Cosigner Signature: Date (if applicable) CC: ENDOCRINOLOGY VISIT Observed: 02/28/2018 Status: F Source: [place] RE[facility] 7:22 AM [facility] REPOSITORY [facility] [address] [place] [address]. [address] [place] [address] OFFICE VISIT Date of Service: 02/27/18 MR#: [id number] Acct: [id number] Name: Andrey Thomson Rep #: [id number] : 1970 Provider: Patricia Harmon NP Age/Sex: 47/F [place] [facility] [place] Signed HPI History of present illness HPI History of present illness Andrey Thomson is a 47 year old female who presents for follow up of diabetes type 2. She continues on metformin, januvia,diet and exercise for control. No issues with metformin. Taking as directed. Appetite has been good. Since our last visit she denies excessive thirst, increased frequency of urination, chest pain or dyspnea. Follows a diabetic diet, Is compliant with medication and is tolerating without side effects. At time of visit: -Pt denies symptoms of hypertensive emergency (CP,SOB,PETERSON, or blurred vision) and hypotension(dizziness or lightheadedness) -Pt denies symptoms of hypoglycemia ( sweaty, confusion, anxiety, tremor, hunger, palpitations) and hyperglycemia ( polydipsia, polyuria) -Pt denies potential medication adverse effect. Hypoglycemia Aware of hypoglycemia: yes Able to self treat low BG: Yes Frequent low Blood sugar: No Has supply of glucagon: no SMBG 150-220 3 checks daily. 3 meals Trying to eat healthy Can count carbs Type: type 2 Weight and fatigue symptoms: Denies snoring Cardiopulmonary symptoms: Reports chest pain at rest and myalgias; denies dyspnea on exertion or lightheadedness GI symptoms: Reports diarrhea; denies constipation, nausea/dyspepsia or vomiting Other symptoms: Denies blurry vision or change in vision Self monitoring: Yes Glucometer type: one touch verio Dietary compliance: Diabetes: good Diabetes education in past year: Yes Glucose testing: demonstrates correct use of meter Exam Const General: comfortable, no acute distress, ill appearing Orientation: oriented x3 HENMT Head: normal to inspection, atraumatic Ears: hearing grossly normal bilaterally Mouth: oral mucosae normal, moist mucous membranes Teeth and gingiva: dentition normal Eyes General: appearance normal, both eyes and all related structures Conjunctivae: conjunctivae normal Sclera: sclerae normal Neck Neck: normal visual inspection Neck mass: No Chest Chest palpation AND inspection: deferred Resp Effort AND Inspection: cough, normal respiratory effort, able to speak in complete sentences Auscultation: Bilateral: Clear to Auscultation Cardio Rate: regular rate Rhythm: regular rhythm Heart Sounds: S1 normal, S2 normal GI Inspection: normal to inspection Auscultation: normal bowel sounds Palpation: soft, no guarding General: deferred Diabetic Foot Pulses: L dorsalis pedis pulse: normal, R dorsalis pedis pulse: normal Monofilament test: Left foot: normal, Right foot: normal Neuro General: moves all extremities Cranial Nerves: CN's II-XI intact bilaterally Speech: speech normal Gait: normal gait Extrem General: normal to inspection, full ROM, normal capillary refill Psych Appearance: well kempt Mood: congruent mood Affect: normal affect Speech and Movement: speech and movement normal Attitude: cooperative Thought Process: normal Judgment: judgment good Intake Vital Signs02/27/18 Weight: 213 lb 4 oz 02/27/18 Blood Pressure 131/86 02/27/18 Blood Pressure Location Rt brachial Intake Visit Reasons: 3 M FU Shoder Filler Required: No Accompanied by: None Is patient in pain?: No Allergies Penicillins [PCN] Allergy (Verified 12/06/17 08:01) Hives Sulfa (Sulfonamide Antibiotics) Allergy (Verified 12/06/17 08:01) Hives Medications Albuterol Sulfate [Proventil Hfa] 90 mcg IH Q4H PRN PRN 03/18/14 [History Confirmed 12/06/17] Liothyronine Sodium [Cytomel] 5 mcg PO DAILY 03/18/14 [History Confirmed 12/06/17] Omeprazole [Prilosec] 20 mg PO PRN PRN 11/10/16 [History Confirmed 12/06/17] blood sugar diagnostic strips See Dose Instructions .ROUTE .MEDSUPPLY #20 ea 08/30/17 [History Confirmed 12/06/17] lancets 33 gauge See Dose Instructions .ROUTE .MEDSUPPLY #100 ea 08/30/17 [History Confirmed 12/06/17] pediatric multivitamin chewable tablet 2 tab PO QDAY ea 08/30/17 [History Confirmed 12/06/17] potassium chloride ER 20 mEq tablet,extended release(part/cryst) 20 meq PO QDAY 08/30/17 [History Confirmed 12/06/17] sitagliptin 50 mg tablet 50 mg PO QDAY #30 tab 09/13/17 [Rx Confirmed 12/06/17] levothyroxine 50 mcg tablet See Label Instructions PO QDAY #104 tab 11/08/17 [Rx Confirmed 12/06/17] losartan 100 mg-hydrochlorothiazide 25 mg tablet 1 tab PO DAILY #90 tab 11/09/17 [Rx Confirmed 12/06/17] metformin 1,000 mg tablet 1,000 mg PO .COMPLEX #225 tab 12/06/17 [Rx Confirmed 12/06/17] sitagliptin 100 mg tablet 100 mg PO QDAY #30 tab 12/06/17 [Rx Confirmed 12/06/17] repaglinide 2 mg tablet 2 mg PO TID #90 tab 02/27/18 [Rx Confirmed 02/27/18] PFSH Medical History Allergic rhinitis (Acute) Asthma (Acute) Chronic fatigue (Acute) Depression (Acute) Diabetes type 2, controlled (Acute) Fatty liver (Acute) GERD (gastroesophageal reflux disease) (Acute) Hypothyroidism (Acute) Low back pain (Acute) Positive P-ANCA titer (Acute) Sleep apnea (Acute) chronic arthralgia of bilat knees (Acute) HTN (hypertension) (Chronic) Surgical History Hx of cholecystectomy (Acute) Family History Father Arthritis Hypertension Mother Diabetes Heart disease Hypertension Grandfather Lung cancer Grandmother Uterine cancer Skin cancer Social History Smoking Status: Never smoker second hand exposure: No alcohol intake: current alcohol intake frequency: a few times a month substance use type: does not use Assessment AND Plan Problems 1. Type 2 diabetes mellitus without complication, without long-term current use of insulin E11.9 2. Essential hypertension I10 3. Hypothyroidism (acquired) E03.9 4. Hyperlipidemia associated with type 2 diabetes mellitus E11.69; E78.5 5. Other elevated white blood cell (WBC) count D72.828 Orders Orders: Medications New: repaglinide (Prandin) administer within 30 minutes of a meal or snac2 mg PO TID E11.69 k Plan Detail Additional Comments 1. Please schedule follow up in 3 months. 2. Lab work one week before appointment. 3. Discussed importance of regular exercise and recommend starting or continuing a regular exercise program for good health. 4. The patient was encouraged to lose weight for good health 5. The importance of monitoring blood sugar regularly was reviewed. 6. The importance of monitoring the HBA1c level regularly was reviewed. 7. The importance of prper foot care and regularly checking feet to prevent sores and loss of limbs was reviewed. 8. The importance of keeping BP at or below 130/80 to prevent stroke, heart attacks, kidney failure, blindness was reviewed. Spent approximately 45 minutes with patient with over 50% of time spent in discussion and counseling regarding medication adjustment, symptoms and treatment of hypoglycemia, diet adherence, and checking BG before driving. Coding Level of Care Code Off vis,est,level 4 Diagnoses Type 2 diabetes mellitus without complication, without long- term current use of insulin E11.9 Diabetes mellitus complication status: without complication Diabetes mellitus accounting officer insulin use: without intermediate use Essential hypertension I10 Hypertension type: essential hypertension Hypothyroidism (acquired) E03.9 Hyperlipidemia associated with type 2 diabetes mellitus E11.69; E78.5 Other elevated white blood cell (WBC) count D72.828 Leukocytosis type: other Time Spent (min) 45 02/28/18 0722 <Electronically signed by Patricia LACEY> Date Patricia Aldridgeigner Signature: Date (if applicable) CC: COMPREHENSIVE METABOLIC Collected: 02/17/2018 Status: F Source: [place] [place] 7:45 AM [facility] REPOSITORY TYPE CODE TESTS RESULT OUT OF RANGE REFERENCE UNITS LAB L501.0100 74-106 mg/dL High GLU 178 Result Comment: Fasting Glucose result greater than or equal to 126 mg/dL suggests DIABETES MELLITUS per A.D.A. criteria. Please note revised GLUCOSE reference range effective 2017. LAB L501.1000 7-18 mg/dL Normal BUN 12 LAB L501.1100 0.55-1.02 mg/dL Normal CREAT,SERUM 0.89 Result Comment: The validity of the calculated GFR AND GFRAA in patients over 70 years has not been determined. Clinical correlation is essential. LAB L501.1110 >60 mL/min Normal EST GFR 73 Result Comment: Non- GFR Calc LAB L501.1115 >60 mL/min Normal EST GFR - AA 88 Result Comment: GFR Calc LAB L501.1300 10-20 RATIO Normal BUN/CRE 13.5 LAB L501.1500 6.4-8.2 g/dL T Normal PROT 7.8 LAB L501.1800 3.2-5.0 g/dL Normal ALB 3.3 LAB L501.1950 2.2-4.2 g/dL High GLOB 4.5 LAB L501.2000 0.9-2.4 RATIO Low A/G 0.7 LAB L501.2200 8.5-10.1 mg/dL CA Normal 9.1 LAB L501.4100 15-37 U/L Normal AST 21 LAB L501.4305 45-117 U/L Normal ALK P 105 LAB L501.4405 13-56 U/L Normal ALT 31 LAB L501.4600 0.20-1.00 mg/dL T Normal BILI 0.20 LAB L501.5300 136-145 mmol/L NA Normal 139 LAB L501.5600 3.5-5.1 mmol/L K Normal 4.1 LAB L501.5900 98-107 mmol/L CL Normal 103 LAB L501.6100 21.0-32.0 mmol/L Normal CO2 26.0 LAB L501.6200 5-15 Normal GAP 10 Performed By: #### L500.4050 #### [facility] [address] [place], [address] HEMOGLOBIN A1C Collected: 02/17/2018 Status: F Source: [place] 7:45 AM [facility] REPOSITORY TYPE CODE TESTS RESULT OUT OF RANGE REFERENCE UNITS LAB L501.9985 4.2-6.3 % High HGB A1C 9.3 Performed By: #### L501.9985 #### [facility] [address] [place], [address] ENDOCRINOLOGY VISIT Observed: 12/07/2017 Status: F Source: [place] REPORT 8:01 AM [facility] REPOSITORY [facility] [address] [place], [place] [address] OFFICE VISIT Date of Service: 12/06/17 MR#: [id number] Acct: [id number] Name: Andrey Thomson Rep #: [id number] : 1970 Provider: Patricia Harmon NP Age/Sex: 47/F [place] [facility] [place]: Signed HPI History of present illness Andrey Thomson is a 47 year old female who presents for follow up of diabetes type 2. She contontinues on metformin, diet and exercise for control. No issues with metformin. Taking as directed. Appetite has been good. Since our last visit she denies excessive thirst, increased frequency of urination, chest pain or dyspnea. Follows a diabetic diet, Is compliant with medication and is tolerating without side effects. At time of visit: -Pt denies symptoms of hypertensive emergency (CP,SOB,PETERSON, or blurred vision) and hypotension(dizziness or lightheadedness) -Pt denies symptoms of hypoglycemia ( sweaty, confusion, anxiety, tremor, hunger, palpitations) and hyperglycemia ( polydipsia, polyuria) -Pt denies potential medication adverse effect. Hypoglycemia Aware of hypoglycemia: yes Able to self treat low BG: Yes Frequent low Blood sugar: No Has supply of glucagon: no SMBG 150-250 with occ higher. Has been ill with strep and URI Diet 3 meals Trying to eat healthy Can count carbs Type: type 2 Weight and fatigue symptoms: Denies snoring Cardiopulmonary symptoms: Reports chest pain at rest and myalgias; denies dyspnea on exertion or lightheadedness GI symptoms: Reports diarrhea; denies constipation, nausea/dyspepsia or vomiting Other symptoms: Denies blurry vision or change in vision Self monitoring: Yes Glucometer type: one touch verio Dietary compliance: Diabetes: good Diabetes education in past year: Yes Glucose testing: demonstrates correct use of meter Exam Const General: comfortable, no acute distress, ill appearing Orientation: oriented x3 HENMT Head: normal to inspection, atraumatic Ears: hearing grossly normal bilaterally Mouth: oral mucosae normal, moist mucous membranes Teeth and gingiva: dentition normal Eyes General: appearance normal, both eyes and all related structures Conjunctivae: conjunctivae normal Sclera: sclerae normal Neck Neck: normal visual inspection Neck mass: No Chest Chest palpation AND inspection: deferred Resp Effort AND Inspection: cough, normal respiratory effort, able to speak in complete sentences Auscultation: Bilateral: Clear to Auscultation Cardio Rate: regular rate Rhythm: regular rhythm Heart Sounds: S1 normal, S2 normal GI Inspection: normal to inspection Auscultation: normal bowel sounds Palpation: soft, no guarding General: deferred Diabetic Foot Pulses: L dorsalis pedis pulse: normal, R dorsalis pedis pulse: normal Monofilament test: Left foot: normal, Right foot: normal Neuro General: moves all extremities Cranial Nerves: CN's II-XI intact bilaterally Speech: speech normal Gait: normal gait Extrem General: normal to inspection, full ROM, normal capillary refill Psych Appearance: well kempt Mood: congruent mood Affect: normal affect Speech and Movement: speech and movement normal Attitude: cooperative Thought Process: normal Judgment: judgment good Weight and fatigue symptoms: Denies snoring Cardiopulmonary symptoms: Denies chest pain at rest, dyspnea on exertion, lightheadedness or myalgias GI symptoms: Denies constipation, diarrhea, nausea/dyspepsia or vomiting Other symptoms: Denies blurry vision or change in vision Intake Vital Signs12/06/17 Height 5 ft 6 in 12/06/17 Weight: 219 lb 12/06/17 Body Mass Index (BMI) 35.3 12/06/17 Blood Pressure 126/85 12/06/17 Blood Pressure Location Lt popliteal 12/06/17 Blood Pressure Position Sitting Intake Visit Reasons: Diabetes Mellitus Type 2 Shoder Filler Required: No Accompanied by: Self Is patient in pain?: No Allergies Penicillins [PCN] Allergy (Verified 12/06/17 08:01) Hives Sulfa (Sulfonamide Antibiotics) Allergy (Verified 12/06/17 08:01) Hives Medications Albuterol Sulfate [Proventil Hfa] 90 mcg IH Q4H PRN PRN 03/18/14 [History Confirmed 12/06/17] Liothyronine Sodium [Cytomel] 5 mcg PO DAILY 03/18/14 [History Confirmed 12/06/17] Omeprazole [Prilosec] 20 mg PO PRN PRN 11/10/16 [History Confirmed 12/06/17] blood sugar diagnostic strips See Dose Instructions .ROUTE .MEDSUPPLY #20 ea 08/30/17 [History Confirmed 12/06/17] lancets 33 gauge See Dose Instructions .ROUTE .MEDSUPPLY #100 ea 08/30/17 [History Confirmed 12/06/17] pediatric multivitamin chewable tablet 2 tab PO QDAY ea 08/30/17 [History Confirmed 12/06/17] potassium chloride ER 20 mEq tablet,extended release(part/cryst) 20 meq PO QDAY 08/30/17 [History Confirmed 12/06/17] sitagliptin 50 mg tablet 50 mg PO QDAY #30 tab 09/13/17 [Rx Confirmed 12/06/17] levothyroxine 50 mcg tablet See Label Instructions PO QDAY #104 tab 11/08/17 [Rx Confirmed 12/06/17] losartan 100 mg-hydrochlorothiazide 25 mg tablet 1 tab PO DAILY #90 tab 11/09/17 [Rx Confirmed 12/06/17] metformin 1,000 mg tablet 1,000 mg PO .COMPLEX #225 tab 12/06/17 [Rx Confirmed 12/06/17] sitagliptin 100 mg tablet 100 mg PO QDAY #30 tab 12/06/17 [Rx Confirmed 12/06/17] Is last menstrual period known: No Post menopausal: No Patient : No Nurse's Note: blood sugars : low : 204 high : 331 PFSH Medical History Allergic rhinitis (Acute) Asthma (Acute) Chronic fatigue (Acute) Depression (Acute) Diabetes type 2, controlled (Acute) Fatty liver (Acute) GERD (gastroesophageal reflux disease) (Acute) Hypothyroidism (Acute) Low back pain (Acute) Positive P-ANCA titer (Acute) Sleep apnea (Acute) chronic arthralgia of bilat knees (Acute) HTN (hypertension) (Chronic) Surgical History Hx of cholecystectomy (Acute) Family History Father Arthritis Hypertension Mother Diabetes Heart disease Hypertension Grandfather Lung cancer Grandmother Uterine cancer Skin cancer Social History Smoking Status: Never smoker second hand exposure: No alcohol intake: current alcohol intake frequency: a few times a month substance use type: does not use ROS Const Constitutional: Positive for excessive sweating and night sweats; no anorexia, body ache, chills, fatigue, fever(s), frequent falls, decreased energy, malaise, weakness, weight change, sleep problems, abnormal sleep pattern, change in appetite, other, headache(s) or snoring Eyes Eyes: No blurry vision, change in vision, double vision, discharge, dry eyes, bulging eyes, floaters, visual disturbances, eye pain, light sensitivity, spots in vision, tunnel vision or other ENT ENT: Positive for nasal congestion, sinus pressure, nasal discharge and post nasal drip; no abnormal hearing, ear pain, ear discharge, ear pressure, hearing loss, tinnitus, dizziness/vertigo, balance problems, nosebleed/epistaxis, nasal obstruction, nose pain, sinus pain, headache(s), facial pain, dental pain, dry mouth, bad breath, hoarseness, lip swelling, mouth lesions, mouth pain, sore throat, tongue swelling, throat swelling, other, difficulty swallowing or neck pain Resp Respiratory: Positive for cough, shortness of breath and wheezing; no change in phlegm color, chest congestion, excessive phlegm production, hemoptysis, pain on inspiration, pain with cough, snoring, stridor or other Cardio Cardiology: Positive for excessive sweating; no chest pain at rest, chest pain with exertion, leg pain with exertion, shortness of breath, dyspnea on exertion, generalized swelling, irregular heart rhythm, lightheadedness, orthopnea, radiating jaw, neck or arm pain, fast heart rate, slow heart rate, palpitations or other Gastro GI: No abdominal pain, belching, bloating, change in bowel habits, change in stool character, coffee ground emesis, constipation, cramping, diarrhea, heartburn, difficulty swallowing, feeling full early, excessive flatus, incontinent of stools, Vomiting blood/hematemesis, blood in stool, loose stools, Black,tarry stools, nausea/dyspepsia, pain with swallowing, vomiting or other Genitourinary-Female: No difficulty urinating, burning urination, painful urination, urinary incontinence, urinary frequency, urinary urgency, urinary hesitancy, urinary retention, blood in urine, Frequent nighttime urination/ nocturia, post void dribbling, suprapubic fullness, side pain, sexual problems, genital lesions, genital itching, hot flashes, abnormal periods, abnormal vaginal bleeding, absent period, painful periods, light periods, heavy periods, difficulty getting , painful intercourse, pelvic pain, vaginal dryness, vaginal odor, Vaginal Itching or other Musc Musculoskeletal: No abnormal walking, joint pain, back pain, deformity, joint swelling, limited range of motion, loss of height, muscle cramps, muscle weakness, decreased muscle mass, body aches, neck pain, numbness, radiating pain into limb, stiffness, tingling or other Skin Skin: Positive for dry skin; no acne, hair loss, change in hair, nail changes, boil, change in skin color, redness, excessive hair growth, yellowing of the skin, lesions, itching, rash, skin pain, skin ulcer, sores, skin swelling, wounds or other Breast Breast: No other Neuro Neurology: No frequent falls, weakness, visual disturbances, abnormal hearing, headache(s), abnormal walking, numbness or tingling Psych Psychiatric: No abnormal sleep pattern, No change in appetite Endo Endocrine: Positive for excessive sweating; no fatigue or other Aller/Imm Allergy/Immunologic: Positive for wheezing; no lip swelling, tongue swelling, throat swelling or itchy eyes Assessment AND Plan Problems 1. Type 2 diabetes mellitus without complication, without long-term current use of insulin E11.9 2. Essential hypertension I10 3. Hypothyroidism (acquired) E03.9 4. Hyperlipidemia associated with type 2 diabetes mellitus E11.69; E78.5 Patient Instructions Januvia 100mg daily Add 500mg metformin to lunch daily Exercise and diet. Orders Orders: Referrals: Medications New: Changed: To: metformin Take one tablet at breakfast, one half tablet at lunch and one [id number] t in evening. On Hold: Plan Detail Additional Comments 1. Please schedule follow up in 3 months. 2. Lab work one week before appointment. 3. Discussed importance of regular exercise and recommend starting or continuing a regular exercise program for good health. 4. The patient was encouraged to lose weight for good health 5. The importance of monitoring blood sugar regularly was reviewed. 6. The importance of monitoring the HBA1c level regularly was reviewed. 7. The importance of prper foot care and regularly checking feet to prevent sores and loss of limbs was reviewed. 8. The importance of keeping BP at or below 130/80 to prevent stroke, heart attacks, kidney failure, blindness was reviewed. Spent approximately 30 minutes with patient with over 50% of time spent in discussion and counseling regarding medication adjustment, symptoms and treatment of hypoglycemia, diet adherence, and checking BG before driving. Coding Level of Care Code Off vis,est,level 4 Diagnoses Type 2 diabetes mellitus without complication, without long- term current use of insulin E11.9 Diabetes mellitus complication status: without complication Diabetes mellitus intermediate insulin use: without intermediate use Essential hypertension I10 Hypertension type: essential hypertension Hypothyroidism (acquired) E03.9 Hyperlipidemia associated with type 2 diabetes mellitus E11.69; E78.5 Time Spent (min) 30 12/07/17 0801 <Electronically signed by Patricia LACEY> Date Patricia LACEY Cosigner Signature: Date (if applicable) CC: COMPREHENSIVE METABOLIC Collected: 11/23/2017 Status: F Source: [facility] ARIAS 7:45 AM [facility] REPOSITORY TYPE CODE TESTS RESULT OUT OF RANGE REFERENCE UNITS LAB L501.0100 74-106 mg/dL High GLU 215 Result Comment: Glucose result greater than or equal to 200 mg/dL suggests DIABETES MELLITUS per A.D.A. criteria. Please note revised GLUCOSE reference range effective 2017. LAB L501.1000 7-18 mg/dL Normal BUN 13 LAB L501.1100 0.55-1.02 mg/dL Normal CREAT,SERUM 0.94 Result Comment: The validity of the calculated GFR AND GFRAA in patients over 70 years has not been determined. Clinical correlation is essential. LAB L501.1110 >60 mL/min Normal EST GFR 68 Result Comment: Non- GFR Calc LAB L501.1115 >60 mL/min Normal EST GFR - AA 83 Result Comment: GFR Calc LAB L501.1300 10-20 RATIO Normal BUN/CRE 13.8 LAB L501.1500 6.4-8.2 g/dL T Normal PROT 7.9 LAB L501.1800 3.2-5.0 g/dL Normal ALB 3.5 LAB L501.1950 2.2-4.2 g/dL High GLOB 4.4 LAB L501.2000 0.9-2.4 RATIO Low A/G 0.8 LAB L501.2200 8.5-10.1 mg/dL CA Normal 8.9 LAB L501.4100 15-37 U/L Normal AST 19 LAB L501.4305 45-117 U/L Normal ALK P 97 LAB L501.4405 13-56 U/L Normal ALT 31 Result Comment: Please note revised ALT reference range effective 2017. LAB L501.4600 0.20-1.00 mg/dL Normal T BILI 0.20 LAB L501.5300 136-145 mmol/L Normal NA 138 LAB L501.5600 3.5-5.1 mmol/L Normal K 3.9 LAB L501.5900 98-107 mmol/L Normal CL 102 LAB L501.6100 21.0-32.0 mmol/L Normal CO2 27.0 LAB L501.6200 5-15 Normal GAP 9 Performed By: #### L500.4050, L501.9520 #### [facility] [address] [place], [address] THYROID STIM HORMONE Collected: 11/23/2017 Status: F Source: [facility] (TSH) 7[facility] TYPE CODE TESTS RESULT OUT OF RANGE REFERENCE UNITS LAB L501.9520 0.358-3.74 uIU/mL Normal TSH 1.54 Performed By: #### L500.4050, L501.9520 #### [facility] [address] [place], [address] HEMOGLOBIN A1C Collected: 11/23/2017 Status: F Source: [facility] 7:45 AM [facility] REPOSITORY TYPE CODE TESTS RESULT OUT OF RANGE REFERENCE UNITS LAB L501.9985 4.2-6.3 % High HGB A1C 9.7 Performed By: #### L501.9985 #### [facility] [address] [place], [address] ENDOCRINOLOGY VISIT Observed: 09/18/2017 Status: F Source: [facility] REPORT 11:58 AM [facility] REPOSITORY [facility] [address] [place], [place] [address] OFFICE VISIT Date of Service: 09/13/17 MR#: [id number] Acct: [id number] Name: ANDREY THOMSON Rep #: [id number] : 1970 Provider: Patricia Harmon NP Age/Sex: 47/F [place] [facility] [place] Signed HPI History of present illness Andrey Thomson is a 47 year old female who presents for follow up of diabetes type 2. She contoinues on metformin, diet and exercise for control. BG readings were fairly controlled for a short time but she has not been able to keep them in range. Currently ill with URI and this has made BG go as high as 200 range. No issues with metformin. Taking as directed. Appetite has been good. Since our last visit she denies excessive thirst, increased frequency of urination, chest pain or dyspnea. Follows a diabetic diet, Is compliant with medication and is tolerating without side effects. At time of visit: -Pt denies symptoms of hypertensive emergency (CP,SOB,PETERSON, or blurred vision) and hypotension(dizziness or lightheadedness) -Pt denies symptoms of hypoglycemia ( sweaty, confusion, anxiety, tremor, hunger, palpitations) and hyperglycemia ( polydipsia, polyuria) -Pt denies potential medication adverse effect. Hypoglycemia Aware of hypoglycemia: yes Able to self treat low BG: Yes Frequent low Blood sugar: No Has supply of glucagon: no SMBG 100-160 with occ higher. Diet 3 meals Trying to eat healthy Can count carbs Type: type 2 Weight and fatigue symptoms: Denies snoring Cardiopulmonary symptoms: Reports chest pain at rest and myalgias; denies dyspnea on exertion or lightheadedness GI symptoms: Reports diarrhea; denies constipation, nausea/dyspepsia or vomiting Other symptoms: Denies blurry vision or change in vision Self monitoring: Yes Glucometer type: one touch verio Dietary compliance: Diabetes: good Diabetes education in past year: Yes Glucose testing: demonstrates correct use of meter Exam Const General: comfortable, no acute distress, ill appearing Orientation: oriented x3 HENMT Head: normal to inspection, atraumatic Ears: hearing grossly normal bilaterally Mouth: oral mucosae normal, moist mucous membranes Teeth and gingiva: dentition normal Eyes General: appearance normal, both eyes and all related structures Conjunctivae: conjunctivae normal Sclera: sclerae normal Neck Neck: normal visual inspection Neck mass: No Chest Chest palpation AND inspection: deferred Resp Effort AND Inspection: cough, normal respiratory effort, able to speak in complete sentences Auscultation: Bilateral: Clear to Auscultation Cardio Rate: regular rate Rhythm: regular rhythm Heart Sounds: S1 normal, S2 normal GI Inspection: normal to inspection Auscultation: normal bowel sounds Palpation: soft, no guarding General: deferred Diabetic Foot Pulses: L dorsalis pedis pulse: normal, R dorsalis pedis pulse: normal Monofilament test: Left foot: normal, Right foot: normal Neuro General: moves all extremities Cranial Nerves: CN's II-XI intact bilaterally Speech: speech normal Gait: normal gait Extrem General: normal to inspection, full ROM, normal capillary refill Psych Appearance: well kempt Mood: congruent mood Affect: normal affect Speech and Movement: speech and movement normal Attitude: cooperative Thought Process: normal Judgment: judgment good Intake Vital Signs09/13/17 Height 5 ft 6 in 09/13/17 Weight: 220 lb 8 oz 09/13/17 Body Mass Index (BMI) 35.6 09/13/17 Blood Pressure 133/85 09/13/17 Blood Pressure Location Lt popliteal 09/13/17 Blood Pressure Position Sitting Intake Visit Reasons: 3 M FU Shoder Filler Required: No Accompanied by: Self Is patient in pain?: No Allergies Penicillins [PCN] Allergy (Verified 09/13/17 09:51) Hives Sulfa (Sulfonamide Antibiotics) Allergy (Verified 09/13/17 09:51) Hives Medications Albuterol Sulfate [Proventil Hfa] 90 mcg IH Q4H PRN PRN 03/18/14 [History Confirmed 09/13/17] Liothyronine Sodium [Cytomel] 5 mcg PO DAILY 03/18/14 [History Confirmed 09/13/17] Losartan/Hydrochlorothiazide [Hyzaar 100-25 Tablet] 1 tab PO DAILY 03/18/14 [History Confirmed 09/13/17] Omeprazole [Prilosec] 20 mg PO PRN PRN 11/10/16 [History Confirmed 09/13/17] Metformin HCl 1,000 mg PO BID #60 tab 01/28/17 [Rx Confirmed 09/13/17] blood sugar diagnostic strips See Dose Instructions .ROUTE .MEDSUPPLY #20 ea 08/30/17 [History Confirmed 09/13/17] lancets 33 gauge See Dose Instructions .ROUTE .MEDSUPPLY #100 ea 08/30/17 [History Confirmed 09/13/17] levothyroxine 50 mcg tablet See Label Instructions PO QDAY tab 08/30/17 [History Confirmed 09/13/17] pediatric multivitamin chewable tablet 2 tab PO QDAY ea 08/30/17 [History Confirmed 09/13/17] potassium chloride ER 20 mEq tablet,extended release(part/cryst) 20 meq PO QDAY 08/30/17 [History Confirmed 09/13/17] sitagliptin 50 mg tablet 50 mg PO QDAY #30 tab 09/13/17 [Rx Confirmed 09/13/17] Is last menstrual period known: No Post menopausal: No Patient : No Nurse's Note: DIABETES TYPE 2 DX: 2011 LAST EXACERBATION : DKA : 01/29 HYPOGLYCEMIC EPISODE : NEVER ER VISIT : 01/29 BLOOD SUGARS : LOW : 155 HIGH : 265 PFSH Medical History Allergic rhinitis (Acute) Asthma (Acute) Chronic fatigue (Acute) Depression (Acute) Diabetes type 2, controlled (Acute) Fatty liver (Acute) GERD (gastroesophageal reflux disease) (Acute) Hypothyroidism (Acute) Low back pain (Acute) Positive P-ANCA titer (Acute) Sleep apnea (Acute) chronic arthralgia of bilat knees (Acute) HTN (hypertension) (Chronic) Surgical History Hx of cholecystectomy (Acute) Family History Father Arthritis Hypertension Mother Diabetes Heart disease Hypertension Grandfather Lung cancer Grandmother Uterine cancer Skin cancer Social History Smoking Status: Never smoker second hand exposure: No alcohol intake: current alcohol intake frequency: a few times a month substance use type: does not use ROS Const Constitutional: Positive for body ache, fatigue and headache(s); no anorexia, chills, fever(s), frequent falls, decreased energy, malaise, night sweats, weakness, weight change, sleep problems, abnormal sleep pattern, change in appetite, other, snoring or excessive sweating Eyes Eyes: No blurry vision, change in vision, double vision, discharge, dry eyes, bulging eyes, floaters, visual disturbances, eye pain, light sensitivity, spots in vision, tunnel vision or other ENT ENT: Positive for nasal discharge, post nasal drip, headache(s), hoarseness and sore throat; no abnormal hearing, ear pain, ear discharge, ear pressure, hearing loss, tinnitus, dizziness/vertigo, balance problems, nosebleed/epistaxis, nasal congestion, nasal obstruction, nose pain, sinus pressure, sinus pain, facial pain, dental pain, dry mouth, bad breath, lip swelling, mouth lesions, mouth pain, tongue swelling, throat swelling, other, difficulty swallowing or neck pain Resp Respiratory: Positive for cough, shortness of breath and wheezing; no change in phlegm color, chest congestion, excessive phlegm production, hemoptysis, pain on inspiration, pain with cough, snoring, stridor or other Cardio Cardiology: Positive for chest pain at rest and shortness of breath; no chest pain with exertion, leg pain with exertion, excessive sweating, dyspnea on exertion, generalized swelling, irregular heart rhythm, lightheadedness, orthopnea, radiating jaw, neck or arm pain, fast heart rate, slow heart rate, palpitations or other Gastro GI: Positive for diarrhea and heartburn; no abdominal pain, belching, bloating, change in bowel habits, change in stool character, coffee ground emesis, constipation, difficulty swallowing, feeling full early, excessive flatus, incontinent of stools, Vomiting blood/hematemesis, blood in stool, loose stools, Black,tarry stools, nausea/dyspepsia, pain with swallowing, vomiting or other Genitourinary-Female: No difficulty urinating, burning urination, painful urination, urinary incontinence, urinary frequency, urinary urgency, urinary hesitancy, urinary retention, blood in urine, Frequent nighttime urination/ nocturia, post void dribbling, suprapubic fullness, side pain, sexual problems, genital lesions, genital itching, hot flashes, abnormal periods, abnormal vaginal bleeding, absent period, painful periods, light periods, heavy periods, difficulty getting , painful intercourse, pelvic pain, vaginal dryness, vaginal odor, Vaginal Itching or other Musc Musculoskeletal: Positive for body aches; no abnormal walking, joint pain, back pain, deformity, joint swelling, limited range of motion, loss of height, muscle cramps, muscle weakness, decreased muscle mass, neck pain, numbness, radiating pain into limb, stiffness, tingling or other Neuro Neurology: Positive for headache(s); no frequent falls, weakness, visual disturbances, abnormal hearing, abnormal walking, numbness or tingling Psych Psychiatric: No abnormal sleep pattern, No change in appetite Endo Endocrine: Positive for fatigue; no other or excessive sweating Aller/Imm Allergy/Immunologic: Positive for wheezing; no lip swelling, tongue swelling or throat swelling Assessment AND Plan Problems 1. Type 2 diabetes mellitus without complication, without long-term current use of insulin E11.9 2. Essential hypertension I10 3. Hyperlipidemia associated with type 2 diabetes mellitus E11.69; E78.5 Plan 1. Please schedule follow up in 3 months. 2. Lab work one week before appointment. 3. Discussed importance of regular exercise and recommend starting or continuing a regular exercise program for good health. 4. The patient was encouraged to lose weight for good health 5. The importance of monitoring blood sugar regularly was reviewed. 6. The importance of monitoring the HBA1c level regularly was reviewed. 7. The importance of prper foot care and regularly checking feet to prevent sores and loss of limbs was reviewed. 8. The importance of keeping BP at or below 130/80 to prevent stroke, heart attacks, kidney failure, blindness was reviewed. Spent approximately 30 minutes with patient with over 50% of time spent in discussion and counseling regarding medication adjustment, symptoms and treatment of hypoglycemia, diet adherence, and checking BG before driving. Orders Orders: Medications New: Coding Level of Care Code Off vis,est,level 3 Diagnoses Type 2 diabetes mellitus without complication, without long- term current use of insulin E11.9 Diabetes mellitus complication status: without complication Diabetes mellitus intermediate insulin use: without accounting officer use Essential hypertension I10 Hypertension type: essential hypertension Hyperlipidemia associated with type 2 diabetes mellitus E11.69; E78.5 Time Spent (min) 30 09/18/17 1158 <Electronically signed by Patricia LACEY> Date Patricia LACEY Cosigner Signature: Date (if applicable) CC: URGENT CARE VISIT Observed: 09/13/2017 Status: F Source: SWETA REPORT 10:25 AM [facility] [place] [address] OFFICE VISIT Date of Service: 09/13/17 MR#: [id number] Acct: [id number] Name: ANDREY THOMSON Rep #: [id number] : 1970 Provider: Ganesh MA Age/Sex: 47/F Location: [facility] [place] Status: Signed Intake Vital Signs09/13/17 Height 5 ft 6 in 09/13/17 Weight: 220 lb 09/13/17 Body Mass Index (BMI) 35.5 Intake Visit Reasons: FLU Shoder Filler Required: No Is patient in pain?: No Allergies Penicillins [PCN] Allergy (Verified 09/13/17 09:51) Hives Sulfa (Sulfonamide Antibiotics) Allergy (Verified 09/13/17 09:51) Hives Medications Albuterol Sulfate [Proventil Hfa] 90 mcg IH Q4H PRN PRN 03/18/14 [History Confirmed 09/13/17] Liothyronine Sodium [Cytomel] 5 mcg PO DAILY 03/18/14 [History Confirmed 09/13/17] Losartan/Hydrochlorothiazide [Hyzaar 100-25 Tablet] 1 tab PO DAILY 03/18/14 [History Confirmed 09/13/17] Omeprazole [Prilosec] 20 mg PO PRN PRN 11/10/16 [History Confirmed 09/13/17] Metformin HCl 1,000 mg PO BID #60 tab 01/28/17 [Rx Confirmed 09/13/17] blood sugar diagnostic strips See Dose Instructions .ROUTE .MEDSUPPLY #20 ea 08/30/17 [History Confirmed 09/13/17] lancets 33 gauge See Dose Instructions .ROUTE .MEDSUPPLY #100 ea 08/30/17 [History Confirmed 09/13/17] levothyroxine 50 mcg tablet See Label Instructions PO QDAY tab 08/30/17 [History Confirmed 09/13/17] pediatric multivitamin chewable tablet 2 tab PO QDAY ea 08/30/17 [History Confirmed 09/13/17] potassium chloride ER 20 mEq tablet,extended release(part/cryst) 20 meq PO QDAY 08/30/17 [History Confirmed 09/13/17] sitagliptin 50 mg tablet 50 mg PO QDAY #30 tab 09/13/17 [Rx Confirmed 09/13/17] PFSH Medical History Allergic rhinitis (Acute) Asthma (Acute) Chronic fatigue (Acute) Depression (Acute) Diabetes type 2, controlled (Acute) Fatty liver (Acute) GERD (gastroesophageal reflux disease) (Acute) Hypothyroidism (Acute) Low back pain (Acute) Positive P-ANCA titer (Acute) Sleep apnea (Acute) chronic arthralgia of bilat knees (Acute) HTN (hypertension) (Chronic) Surgical History Hx of cholecystectomy (Acute) Family History Father Arthritis Hypertension Mother Diabetes Heart disease Hypertension Grandfather Lung cancer Grandmother Uterine cancer Skin cancer Social History Smoking Status: Never smoker second hand exposure: No alcohol intake: current alcohol intake frequency: a few times a month substance use type: does not use HPI FLU: Details: ANDREY THOMSON, is a 47 F who presents to the office today for sinus and nasal congestion/pressure, headache and fatigue over the past several days. Patient states that she has used ibuprofen and Tylenol with moderate success in relieving her headaches. She is also tried several [id number]-[id number] cold and sinus medications with no relief. No nausea, vomiting, diarrhea. She denies fever, chills, sweats. No other associated symptoms or alleviating/aggravating factors. ROS Const Constitutional: Positive for headache(s); no fever(s), chills, night sweats or abnormal sleep pattern ENT ENT: Positive for headache(s), nasal congestion, sinus pressure, sinus pain and nasal discharge; no ear pain Resp Respiratory: No cough or shortness of breath Cardio Cardiology: No shortness of breath, irregular heart rhythm or fast heart rate Neuro Neurology: Positive for headache(s); no confusion Psych Psychiatric: No abnormal sleep pattern, No confusion Exam Const General: cooperative HENMT Head: normal to inspection Ears: hearing grossly normal bilaterally Nose: nasal discharge purulent Face and sinus: sinus tenderness frontal and maxillary Mouth: oral mucosae normal Throat: abnormal tonsil bilaterally, postnasal drainage Resp Effort AND Inspection: normal respiratory effort Auscultation: Bilateral: Clear to Auscultation Cardio Rate: regular rate Rhythm: regular rhythm Neuro General: alert, CN's II-XI intact bilaterally Psych Appearance: grossly normal Mental Status: mental status grossly normal Results BMSFLUAB Office Flu A AND B Negative FLU A AND B Last Edit by Luh Morales on 09/13/17 09:59 Assessment AND Plan Problems 1. URI, acute J06.9 Plan Flu test negative today. Encouraged to get plenty of rest, drink lots of clear liquids, and use Tylenol or Ibuprofen (unless contraindicated) for fever and comfort. Patient also educated on other symptomatic management techniques. To be seen in 7-10 days if no improvement; sooner if worsening of symptoms. Patient advised of potential red flags and when appropriate report to the ED. Patient verbalized understanding of all the above. Orders Orders: Coding Level of Care Code Off vis,est,level 3 Diagnoses URI, acute J06.9 09/13/17 1025 <Electronically signed by Ganesh MA> Date Ganesh Palmer ANIL Cosigner Signature: Date (if applicable) CC: ALLERGIES ALLERGIES DATE TYPE / CODE NAME / CODE REACTION SEVERITY SOURCE 07/26/2018 Drug Penicillins/F Hives Unknown [facility] [id number](RXN [facility] 51355(SNOMED ORM) Repository CT) 07/26/2018 Drug Sulfa Hives Unknown [facility] Allergy/4160 (Sulfonamide Hospital 19863(SNOMED Antibiotics)/ Repository CT) [id number](RX NORM) ENCOUNTERS ENCOUNTERS ADMIT/DISCHARGE ACCOUNT ADMITTING ENCOUNTER LOCATION SOURCE NUMBER CLASS 07/31/2018/ [id number] Ambulatory BMSBuilding:B [place] [facility] 8 [facility] Repository 07/31/2018 [id number] Ambulatory [place] [facility] Rep[facility] 07/26/2018/ [id number] Ambulatory BMSBuilding:B [place] [facility] 2 [facility] Repository 07/24/2018 [id number] Ambulatory BMSBuilding:B [place] 3 [facility] Repository 07/19/2018 [id number] Amb[facility] [place] [facility] Repository 07/18/2018 [id number] Ambulatory [place] [facility] Repository 07/17/2018/ [id number] Emergency [place] [facility] 1 [facility] Repository 07/14/2018/ [id number] Ambulatory BMSBuilding:B [place] 8 0 [facility] Repository 07/07/2018 [id number] Ambulatory [place] [facility] Repository 06/28/2018/ [id number] Ambulatory BMSBuilding:B [place] 8 0 [facility] Repository 06/06/2018/ [id number] Ambulatory BMSBuilding:B [place] 8 6 [facility] Repository 05/29/2018 [id number] Ambulatory BMSBuilding:B [place] 0 [facility] Repository 05/29/2018 [id number] Ambulatory [place] 9 [facility] Hospital ing:[facility] Repository 05/29/2018 [id number] Ambulatory BMSBuilding:W [place]eta 3 [facility] Repository 05/22/2018/ [id number] Ambulatory BMSBuilding:B [place] 8 9 [place] Repository 05/18/2018/ [id number] Ambulatory [place]eta [place] 8 0 [facility] Hospital ing:[place] Repository 05/04/2018/ [id number] Ambulatory [place] 8 6 [facility] Hospital ing:[place] Repository 03/16/2018/ [id number] Ambulatory [place] 8 5 [facility] Hospital ing:[place] Repository 02/27/2018/ [id number] Ambulatory BMSBuilding:B [place] 8 8 [facility] Repository 02/17/2018 [id number] Ambulatory [place] Sweta 1 [facility] Repository 02/06/2018/ [id number] Ambulatory [place] 8 6 [facility] Hospital ing:[place] Repository 12/20/2017/ [id number] Ambulatory [place] 8 0 [facility] Hospital ing:[place] Repository 12/06/2017/ [id number] Ambulatory BMSBuilding:B [place] 8 6 [facility] Repository 11/23/2017 [id number] Ambulatory [place] 9 [facility] Repository 09/13/2017/ [id number] Ambulatory BMSBuilding:B [place] 8 5 [facility] Repository 09/13/2017/ [id number] Ambulatory BMSBuilding:B [place] 8 7 [facility] Repository 08/30/2017 [id number] Ambulatory BMSBuilding:B [place] 1 [facility] Repository PAYERS PAYERS ENCOUNTER GUARANTOR PAYER SUBSCRIBER SOURCE 07/31/2018 ANDREY A Primary ANDREY A [place] [id number] Insurance:AETNAPolicy [facility] [place]: [id number] [id number] Repository 66387Jrs: (330) Date:3360-99-43ZG [phone] () 88[place]FS[place] [address]CS: 07/31/2018 Secondary NOT GIVENUNK [place] Insurance:SELF PAY [facility] Number: Effective Repository Date:2018-07-31 07/31/2018 ANDREY A Primary ANDREY A [place] [id number] Insurance:AETNAPolicy CARICOFEDOB: [facility] Number: [id number], [place] [id number] Repository 01091Hce: (330) Date:8260-05-84ZG [phone] () [id number] [address]AC: 07/31/2018 Secondary NOT GIVENUNK [place] Insurance:SELF PAY [facility] Number: Effective Repository Date:2018-07-26 07/26/2018 ANDREY A Primary ANDREY A [place] [id number] Insurance:AETNAPolicy CARICOFEDOB: [facility] Number: [id number], [place] [id number] Repository 99441Kcp: (330) Date:9178-10-36BK [phone] () 764841EJWH[place] [address]VJ: 07/26/2018 Secondary NOT GIVENUNK [place] Insurance:SELF PAY [facility] Number: Effective Repository Date:2018-07-26 07/24/2018 ANDREY A Primary ANDREY A [place] [id number] Insurance:AETNAPolicy CARICOFEDOB: [facility] Number: [id number], [place] [id number] Repository 217[address]Uhv: (330) Date:6624-60-34RI [phone] (HP) [id number] DEBBIE TOURE [address]NM: 07/24/2018 Secondary NOT GIVENUNK [place] Insurance:SELF PAY [facility] Number: Effective Repository Date:2018-07-24 07/19/2018 ANDREY A Primary ANDREY A [place] [id number] Insurance:AETNAPolicy CARICOFEDOB: [facility] Number: [id number], [place] [id number] Repository [address]Djb: (330) Date:6704-17-29AF [phone] () [id number] MICHAELS [address]KP: 07/19/2018 Secondary NOT GIVENUNK [place] Insurance:SELF PAY [facility] Number: Effective Repository Date:2018-06-15 07/18/2018 ANDREY A Primary ANDREY A [place] [id number] Insurance:AETNAPolicy CARICOFEDOB: [facility] Number: [id number], [place] [id number] Repository [address]Hka: (330) Date:2873-09-13HN [phone] () 846359FGDEBBIE MICHAELS [address]DD: 07/18/2018 Secondary NOT GIVENUNK [place] Insurance:SELF PAY [facility] Number: Effective Repository Date:2018-07-13 07/17/2018 ANDREY A Primary ANDREY A [place] [id number] Insurance:AETNAPolicy CARICOFEDOB: [facility] Number: [id number], [place] [id number] Repository [address]Siy: (330) Date:2374-45-01NR [phone] (HP) 010650NUDEBBIE MICHAELS [address]KA: 07/17/2018 Secondary NOT GIVENUNK [place] Insurance:SELF PAY [facility] Number: Effective Repository Date:2018-07-17 07/14/2018 ANDREY A Primary ANDREY A [place] [id number] Insurance:AETNAPolicy CARICOFEDOB: [facility] Number: [id number], [place] [id number] Repository 813[address]Ngv: (330) Date:1764-27-04XA [phone] () 430597GKWH[place] [address]IO: 07/14/2018 Secondary NOT GIVENUNK [place] Insurance:SELF PAY [facility] Number: Effective Repository Date:2018-07-14 07/07/2018 ANDREY A Primary ANDREY A [place] [id number] Insurance:AETNAPolicy CARICOFEDOB: [facility] Number: [id number], [place] [id number] Repository 05303Slr: (330) Date:6623-16-45EU [phone] () [id number] [address]EV: 07/07/2018 Secondary NOT GIVENUNK [place] Insurance:SELF PAY [facility] Number: Effective Repository Date:2018-05-23 06/28/2018 ANDREY A Primary ANDREY A [place] [id number] Insurance:AETNAPolicy [facility] Number: [id number], [place] [id number] Repository 06936Uqq: (330) Date:3446-29-07RE [phone] () [id number] [place] [address]OF: 06/28/2018 Secondary NOT GIVENUNK [place] Insurance:SELF PAY [facility] Number: Effective Repository Date:2018-06-28 06/06/2018 ANDREY A Primary ANDREY A [place] [id number] Insurance:AETNAPolicy [facility] Number: [id number], [place] [id number] Repository 868[address]Bkf: (330) Date:5625-58-52CC [phone] (HP) [id number] DEBBIE TOURE [address]KY: 06/06/2018 Secondary NOT GIVENUNK [place] Insurance:SELF PAY [facility] Number: Effective Repository Date:2018-06-06 05/29/2018 ANDREY A Primary ANDREY A [place] [id number] Insurance:AETNAPolicy [facility] Number: [id number], [place] [id number] Repository 110[address]Cgj: (330) Date:9857-20-57OX [phone] (HP) [id number] DEBBIE TOURE [address]XS: 05/29/2018 Secondary NOT GIVENUNK [place] Insurance:SELF PAY [facility] Number: Effective Repository Date:2018-05-29 05/29/2018 ANDREY A Primary ANDREY A [place] [id number] Insurance:AETNAPolicy [facility] Number: [id number], [place] [id number] Repository 32271Efp: (330) Date:6843-08-53XU [phone] (HP) [id number] DEBBIE TOURE [address]CZ: 05/29/2018 Secondary NOT GIVENUNK [place] Insurance:SELF PAY [facility] Number: Effective Repository Date:2018-05-22 05/29/2018 ANDREY A Primary ANDREY A [place] [id number] Insurance:AETNAPolicy [facility] Number: [id number], [place] [id number] Repository 81421Ixp: (330) Date:5716-25-45MQ [phone] (HP) 338171NWDEBBIE MICHAELS [address]WC: 05/29/2018 Secondary NOT GIVENUNK [place] Insurance:SELF PAY [facility] Number: Effective Repository Date:2018-05-29 05/22/2018 ANDREY A Primary ANDREY A [place] [id number] Insurance:AETNAPolicy CARICOFEDOB: [facility] Number: [id number], [place] [id number] Repository [address]Cmq: (330) Date:1055-95-53JF [phone] () [id number] DEBBIE TOURE [address]XD: 05/22/2018 Secondary NOT GIVENUNK [place] Insurance:SELF PAY [facility] Number: Effective Repository Date:2018-05-22 05/18/2018 ANDREY A Primary ANDREY A [place] [id number] Insurance:AETNAPolicy CARICOFEDOB: [facility] Number: [id number], [place] [id number] Repository 60[address]Gig: (330) Date:8966-36-84LY [phone] () [id number] DEBBIE TOURE [address]ZE: 05/18/2018 Secondary NOT GIVENUNK [place] Insurance:SELF PAY [facility] Number: Effective Repository Date:2018-05-15 05/04/2018 ANDREY A Primary ANDREY A [place] [id number] Insurance:AETNAPolicy CARICOFEDOB: [facility] Number: [id number], [place] [id number] Repository 60[address]Oot: (366) Date:8982-81-88VI [phone] () [id number] DEBBIE TOURE [address]LC: 05/04/2018 Secondary NOT GIVENUNK [place] Insurance:SELF PAY [facility] Number: Effective Repository Date:2018-04-15 03/16/2018 ANDREY A Primary ANDREY A [place] [id number] Insurance:AETNAPolicy CARICOFEDOB: [facility] Number: [id number], [place] [id number] Repository 727[address]Chl: (330) Date:8473-25-94IN [phone] () [id number] MICHAELS [address]WC: 03/16/2018 Secondary NOT GIVENUNK [place] Insurance:SELF PAY [facility] Number: Effective Repository Date:2018-02-12 02/27/2018 ANDREY A Primary ANDREY A [place] [id number] Insurance:AETNAPolicy [facility] Number: [id number], [place] [id number] Repository 52917Gdj: (330) Date:2411-54-37MX [phone] () [id number] DEBBIE TOURE [address]OJ: 02/27/2018 Secondary NOT GIVENUNK [place] Insurance:SELF PAY [facility] Number: Effective Repository Date:2018-02-27 02/17/2018 ANDREY A Primary NOT GIVENUNK [place] [id number] Insurance:[place]LF [place] Number: Effective Repository [address]Qjk: (330) Date:2018-02-17 [facility]-3000 () 02/06/2018 ANDREY A Primary ANDREY A [place] [id number] Insurance:AETNAPolicy CARICOFEDOB: [facility] Number: [id number], [place] [id number] Repository 94742Kgk: (330) Date:7005-89-67VG [phone] (HP) [id number] DEBBIE TOURE [address]RG: 02/06/2018 Secondary NOT GIVENUNK [place] Insurance:SELF PAY [facility] Number: Effective Repository Date:2018-01-13 12/20/2017 ANDREY A Primary ANDREY A [place] [id number] S Insurance:AETNAPolicy CARICOFEDOB: [facility] [address] Number: [id number], [place] [id number] Repository 74889Goz: (330) Date:6238-42-42CK [phone] () [id number] JASONDEBBIE [address]PA: 12/20/2017 Secondary NOT GIVENUNK [place] Insurance:SELF PAY [facility] Number: Effective Repository Date:2017-12-14 12/06/2017 ANDREY A Primary ANDREY A [place] [id number] S Insurance:AETNAPolicy CARICOFEDOB: [facility] [address] Number: [id number], [place] [id number] Repository 16851Eib: (330) Date:4560-38-14BJ [phone] () 209189JH [place] [address]KJ: 12/06/2017 Secondary NOT GIVENUNK [place] Insurance:SELF PAY [facility] Number: Effective Repository Date:2017-12-06 11/23/2017 ANDREY A Primary NOT GIVENUNK [place] [id number] S Insurance:SELF PAY [place] Number: Effective Repository 62693Zfz: (330) Date:2017-11-23 [facility]-4808 () 09/13/2017 ANDREY A Primary ANDREY A [place] [id number] S Insurance:AETNAPolicy CARICOFEDOB: [facility] [address] Number: [id number], [place] [id number] Repository 12657Fgh: (330) Date:4929-64-07JT [phone] () [id number] [place] [address]PZ: 09/13/2017 Secondary NOT GIVENUNK [place] Insurance:SELF PAY [facility] Number: Effective Repository Date:2017-09-13 09/13/2017 Andrey A Primary Andrey A [place] [id number] S Insurance:AETNAPolicy CaricofeDOB: [facility] Number: [id number], [place] [id number] Repository 605[address]Oki: (330) Date:9924-89-87RK [phone] () [id number] DEBBIE TOURE [address]IE: 09/13/2017 Secondary NOT GIVENUNK [place] Insurance:SELF PAY [facility] Number: Effective Repository Date:2017-09-12 08/30/2017 Andrey A Primary NOT GIVENUNK [place] [id number] S Insurance:SELF PAY [place] Number: Effective Repository [id number]: (330) Date:2017-08-30 [phone] ()
== END 2018-07-17 12:16 | disposition home or self-care (01) ==
PROVIDERS: Emergency Provider Emergency Medicine; Family Provider Internal Medicine; PCP Internal Medicine
DX: R07.9 Chest pain, unspecified (principal); R60.0 Localized edema
CPT/HCPCS: 71046; 71275; 80048; 83880; 84484; 85025; 93005; 99285; J7040; Q9967; A4216

== ENCOUNTER → 2018-07-18 09:19 | Outpatient (CLI) | payer OTHER, SELFPAY ==
[2018-06-28 16:47] VITALS: BMI 35.3
== END ==
LOC: SL 09:19
PROVIDERS: Family Provider Internal Medicine; PCP Internal Medicine; Visit Provider Internal Medicine
DX: G47.9 Sleep disorder, unspecified (principal)
CPT/HCPCS: 98960; G0463

== ENCOUNTER 2018-07-19 15:27 | Outpatient (RCR) | payer OTHER, SELFPAY | END 2018-08-14 23:59 | LOC: DC 15:27 | PROVIDERS: Family Provider Internal Medicine; PCP Internal Medicine; Referring Provider Nurse Practitioner; Visit Provider Nurse Practitioner | DX: E11.9 Type 2 diabetes mellitus without complications (principal); Z71.3 Dietary counseling and surveillance | CPT/HCPCS: G0109 ==

== ENCOUNTER → 2018-07-31 06:11 | Outpatient (CLI) | payer OTHER, SELFPAY ==
[2018-07-26 10:26] VITALS: BMI 34.8
--- NOTE | 2018-07-31 17:36 | STRESSREP_ITS ---
Stress Test Report Pharmacologic myocardial perfusion stress test. 47-year-old lady with a history of chest pain. Medications losartan, hydrochlorothiazide, metoprolol. Resting EKG demonstrates normal sinus rhythm with a rate of 90 bpm normal intervals are noted resting blood pressure 120/70 mmHg. 0.4 mg of regadenoson was infused per usual protocol followed by rapid intravenous saline flush injection continuous EKG monitoring was performed. The maximum heart rate attained was 139 bpm which was 79% of maximum predicted heart rate the maximum workload attained was 1 metabolic equivalent. At rest there were no ST or T wave changes noted suggest abnormal flow reserve at peak infusion nonspecific ST-T wave changes were noted with no meet the criteria for ischemia. The resting blood pressure was 120/70 with a peak blood pressure 142/80 mmHg. Myocardial perfusion protocol. 14.7 mCi of technetium 99m sestamibi was injected at rest. 0.4 mg of re gadenoson was infused per usual protocol peak infusion 44.5 mCi of technetium 99m sestamibi was injected stress images were obtained stress and rest images were reconstructed and compared in the short axis vertical and horizontal long axis. Gated images were also obtained Perfusion SPECT analysis: Review of the images demonstrate normal uptake of tracer noted in all areas of the myocardium. The resting images similarly demonstrate normal uptake of tracer noted in all areas of the myocardium. No areas of reversibility are noted suggest ischemia no previous infarct is noted. Gated SPECT analysis: The gated ejection fraction is noted to be 56%. Conclusion: Normal pharmacologic myocardial perfusion stress test. Preserved ejection fraction.
--- OUTSIDE RECORDS SUMMARY | 2018-11-01 16:20 | XMS RPT_ITS ---
:1970 Author Organization OHIP Support Name Relationship Address Phone TONIO THMOSON Unavailable [address] + [place] [address] TEAL, RAFFI Unavailable [address] + [place] [address] [facility] Unavailable [address] + [place] [address] CARTIM, TONIO Unavailable [address] + [place] [address] TEAL, RAFFI Unavailable [address] + [place] [address] [facility] Unavailable [address] + [place] [address] CARICOFE, TONIO Unavailable [address] + [place] [address] TEAL, RAFFI Unavailable [address] + [place] [address] [facility] Unavailable [address] + [place] [address] CARICOFE, TONIO Unavailable [address] + [place] [address] TEAL, RAFFI Unavailable [address] + [place] [address] [facility] Unavailable [address] + [place] [address] CARICOFE, TONIO Unavailable [address] + [place] [address] TEAL, RAFFI Unavailable [address] + [place] [address] [facility] Unavailable [address] + [place] [address] CARICOFE, TONIO Unavailable [address] + [place] [address] TEAL, RAFFI Unavailable [address] + [place] [address] [facility] Unavailable [address] + [place] [address] CARICOFE, TONIO Unavailable [address] + [place] [address] TEAL, RAFFI Unavailable [address] + [place] [address] [facility] Unavailable [address] + [place] [address] CARICOFE, TONIO Unavailable [address] + [place] [address] TEAL, RAFFI Unavailable [address] + [place] [address] [facility] Unavailable [address] + [place] [address] CARICOFE, TONIO Unavailable [address] + [place] [address] TEAL, RAFFI Unavailable [address] + [place] [address] [facility] Unavailable [address] + [place] [address] CARICOFE, TONIO Unavailable [address] + [place] [address] TEAL, RAFFI Unavailable [address] + [place] [address] [facility] Unavailable [address] + [place] [address] CARICOFE, TONIO Unavailable [address] + [place] [address] TEAL, RAFFI Unavailable [address] + [place] [address] [facility] Unavailable [address] + [place] [address] CARICOFE, TONIO Unavailable [address] + [place] [address] TEAL, RAFFI Unavailable [address] + [place] [address] [facility] Unavailable [address] + [place] [address] CARICOFE, TONIO Unavailable [address] + [place] [address] TEAL, RAFFI Unavailable [address] + [place] [address] [facility] Unavailable [address] + [place] [address] CARICOFE, TONIO Unavailable Unavailable + TEAL, RAFFI Unavailable Unavailable + [facility] Unavailable [address] + [place] [address] CARICOFE, TONIO Unavailable [address] + [place] [address] TEAL, RAFFI Unavailable [address] + [facility] [place] [address] [facility] Unavailable [address] + [place] [address] CARICOFE, TONIO Unavailable [address] + [place] [address] TEAL, RAFFI Unavailable [address] + [place] [address] [facility] Unavailable [address] + [place] [address] CARICOFE, TONIO Unavailable [address] + [place] [address] TEAL, RAFFI Unavailable Unavailable + [place] [address] [facility] Unavailable [address] + [place] [address] CARICOFE, TONIO Unavailable [address] + [place] [address] TEAL, RAFFI Unavailable [address] + [facility] [place] [address] [facility] Unavailable [address] + [place] [address] CARICOFE, TONIO Unavailable [address] + [place] [address] TEAL, RAFFI Unavailable Unavailable + [place] [address] [facility] Unavailable [address] + [place] [address] [facility] Unavailable [address] + [place] [address] Caricofe, Tonio Unavailable [address] + [place] [address] Teal, Raffi Unavailable [address] + [place] [address] [facility] Unavailable [address] + [place] [address] Caricofe, Tonio Unavailable [address] + [place] [address] Teal, Raffi Unavailable [address] + [place] [address] [facility] Unavailable [address] + [place] [address] Caricofe, Tonio Unavailable [address] + [place] [address] Teal, Raffi Unavailable [address] + [place] [address] [facility] Unavailable [address] + [place] [address] Caricofe, Tonio Unavailable [address] + [place] [address] Teal, Raffi Unavailable [address] + [place] [address] [facility] Unavailable [address] + [place] [address] Caricofe, Tonio Unavailable [address] + [place] [address] Teal, Raffi Unavailable [address] + [place] [address] [facility] Unavailable [address] + [place] [address] Caricofe, Tonio Unavailable [address] + [place] [address] Teal, Raffi Unavailable [address] + [place] [address] [employer] Unavailable [address] + [place] [address] Caricofe, Tonio Unavailable [address] + [place] [address] Teal, Raffi Unavailable [address] + [place] [address] [facility] Unavailable [address] + [place] [address] Caricofe, Tonio Unavailable [address] + [place] [address] Teal, Raffi Unavailable [address] + [place] [address] [facility] Unavailable [address] + [place] [address] Caricofe, Tonio Unavailable [address] + [place] [address] Teal, Raffi Unavailable [address] + [place] [address] [facility] Unavailable [address] + [place] [address] Caricofe, Tonio Unavailable [address] + [place] [address] Teal, Raffi Unavailable [address] + [place] [address] [facility] Unavailable [address] + [place] [address] Caricofe, Tonio Unavailable [address] + [place] [address] Teal, Raffi Unavailable [address] + [place] [address] [facility] Unavailable [address] + [place] [address] Care Team Providers Name Role Phone Oleghe, Efewongbe Attending Unavailable Oleghe, Efewongbe Referring Unavailable Patricia Harmon [employer] SAL[employer]ATE[employer] Attending Unavailable ShoPatricia cedeno [employer] SALES ASSOCIATE-C Referring Unavailable Oleghe, Efewongbe Primary Care Unavailable Guy, Madi Attending Unavailable Guy, Madi Referring Unavailable Guy, Madi Attending Unavailable Guy, [place] Referring Unavailable Oleghe, Efewongbe Primary Care Unavailable Guy, Madi Attending Unavailable Oleghe, Efewongbe Referring Unavailable No, Renita Attending Unavailable Oleghe, Efewongbe Primary Care Unavailable Narendra Adams Attending Unavailable Emigdio Clemente [employer] SALES ASSOCIATE-C Attending Unavailable Oleghe, Efewongbe Referring Unavailable Oleghe, Efewongbe Attending Unavailable Oleghe, Efewongbe Primary Care Unavailable Oleghe, Efewongbe Attending Unavailable Oleghe, Efewongbe Primary Care Unavailable Oleghe, Efewongbe Referring Unavailable Oleghe, Efewongbe Attending Unavailable Oleghe, Efewongbe Referring Unavailable Clay Suresh Attending Unavailable Oleghe, Efewongbe Referring Unavailable Patricia Harmon [employer] SALES ASSOCIATE-C Attending Unavailable Patricia Harmon [employer]EL SALES ASSOCIATE-C Referring Unavailable Oleghe, Efewongbe Primary Care Unavailable Patricia Harmon [employer] SALES ASSOCIATE-C Attending Unavailable ShoPatricia cedeno [employer] SALES [employer]OCIATE-C Referring Unavailable Guy, Madi Attending Unavailable Oleghe, Efewongbe Referring Unavailable Oleghe, Efewongbe Primary Care Unavailable Oleghe, Efewongbe Consulting Unavailable Oleghe, Efewongbe Attending Unavailable Oleghe, Efewongbe Referring Unavailable Oleghe, Efewongbe Primary Care Unavailable Oleghe, Efewongbe Attending Unavailable Patricia Harmon [employer] SALES [employer]OCIATE-C Referring Unavailable Patricia Harmon [employer]EL SALES ASSOCIATE-C Attending Unavailable Patricia Harmon [employer]PAREL SALES ASSOCIATE-C Referring Unavailable Patricia Harmon [employer]PAREL SALES ASSOCIATE-C Primary Care Unavailable Patricia Harmon [employer]EL SALES ASSOCIATE-C Attending Unavailable Patricia Harmon [employer]PAREL SALES ASSOCIATE-C Referring Unavailable Patricia Harmon [employer]PAREL SALES ASSOCIATE-C Primary Care Unavailable Patricia Harmon [employer]EL SALES ASSOCIATE-C Attending Unavailable Patricia Harmon [employer]EL SALES ASSOCIATE-C Referring Unavailable [facility] Employee Attending Unavailable Shook, Patricia Ojeda [employer]EL SALES ASSOCIATE-C Attending Unavailable Shook, aPtricia Ojeda [employer]EL SALES ASSOCIATE-C Referring Unavailable Shook, Patricia Ojeda [employer]EL SALES ASSOCIATE-C Primary Care Unavailable Shook, Patricia Ojeda [employer]EL SALES ASSOCIATE-C Attending Unavailable Shook, Patricia J [employer]EL SALES ASSOCIATE-C Referring Unavailable Shook, Patricia J [employer]EL SALES ASSOCIATE-C Primary Care Unavailable Shook, Patricia Ojeda [employer]EL SALES ASSOCIATE-C Attending Unavailable Shook, Patricia J [employer]PAREL SALES ASSOCIATE-C Referring Unavailable Shook, Patricia Ojeda [employer]EL SALES ASSOCIATE-C Attending Unavailable Shook, Patricia J [employer]EL SALES ASSOCIATE-C Referring Unavailable Oleghe, Efewongbe Primary Care Unavailable Miracle Santos Attending Unavailable Oleghe, Efewongbe Referring Unavailable Shook, Patricia J [employer]EL SALES ASSOCIATE-C Attending Unavailable Shook, Patircia J [employer]PAREL SALES ASSOCIATE-C Referring Unavailable Shook, Patricia J [employer]EL SALES ASSOCIATE-C Primary Care Unavailable Shook, Patricia J [employer]EL SALES ASSOCIATE-C Attending Unavailable Shook, Patricia J [employer]PAREL SALES ASSOCIATE-C Referring Unavailable [facility] Employee Attending Unavailable Ganesh Palmer Attending Unavailable Shook, Patricia J [employer]EL SALES ASSOCIATE-C Referring Unavailable Shook, Patricia Ojeda [employer]PAREL SALES ASSOCIATE-C Primary Care Unavailable Shook, Patricia J [employer]PAREL SALES ASSOCIATE-C Attending Unavailable Shook, Patricia J [employer]PAREL SALES ASSOCIATE-C Referring Unavailable Shook, Patricia J [employer]EL SALES ASSOCIATE-C Primary Care Unavailable PROBLEMS PROBLEMS DATE TYPE CONDITION / CODE ATTENDING STATUS SOURCE 08/15/2018 Unknown E11.9 - Type 2 Patricia Harmon Active [place] diabetes mellitus [employer] SAL[employer]OCIATE-C Community without Hospital complications / Repository E11.9(ICD-10) 08/22/2018 Unknown R07.9 - Chest pain, Guy, Madi Active [facility] unspecified / Community R07.9(ICD-10) Hospital Repository 07/26/2018 Unknown I10 - Essential Guy, Clearwater Active [facility] (primary) Community hypertension / Hospital I10(ICD-10) Repository 05/30/2018 Unknown G47.33 - Guy, Madi Active [facility] Obstructive sleep Community apnea (adult) Hospital (pediatric) / Repository G47.33(ICD-10) 05/30/2018 Unknown E03.9 - Guy, Clearwater Active [facility] Hypothyroidism, Community unspecified / Hospital E03.9(ICD-10) Repository 06/23/2018 Unknown R00.0 - Clay Suresh Active [facility] Tachycardia, Community unspecified / Hospital R00.0(ICD-10) Repository 06/23/2018 Unknown R06.02 - Shortness MoodClay lyons Active [facility] of breath / Community R06.02(ICD-10) Hospital Repository 05/22/2018 Unknown Z12.31 - Encounter Kathleen Active [place] for screening [facility] mammogram for Hospital malignant neoplasm Repository of breast / Z12.31(ICD-10) 05/22/2018 Unknown Z00.00 - Encounter Kathleen Active [place] for general adult [facility] medical examination Hospital without abnormal Repository findings / Z00.00(ICD-10) 02/27/2018 Unknown D72.829 - Elevated Patricia Harmon Active [place] white blood cell [employer] SALES ASSOCIATE-C Community count, unspecified Hospital / D72.829(ICD-10) Repository 12/06/2017 Unknown E11.69 - Type 2 Patricia Harmon Active [place] diabetes mellitus [employer] SALES ASSOCIATE-C Community with other Hospital specified Repository complication / E11.69(ICD-10) 09/13/2017 Unknown R52 - Pain, Spencer, Ganesh Active [facility] unspecified / Community R52(ICD-10) Hospital Repository PROCEDURES PROCEDURES No Procedure Records FoundRESULTS RESULTS ENDOCRINOLOGY VISIT Observed: 09/04/2018 Status: F Source: [place] REPORT 9:53 AM [facility] REPOSITORY [facility] [address] [place] [address]. [address] [place] [address] OFFICE VISIT Date of Service: 09/04/18 MR#: [id number] Acct: [id number] Name: ANDREY THOMSON Rep #: [id number] : 1970 Provider: Patricia Harmon NP Age/Sex: 47/F [place] [facility] [place] Signed HPI History of present illness Andrey Thomson is a 47 year old female who presents for follow up of diabetes type 2. She continues on metformin, prandin diet and exercise for control. Was also taking januvia but stopped as she felt she may not need. Has been ill with bronchitis and asthma flare. Given rx for prednisone as well as z jasper. Feeling better. No issues with metformin. Taking as directed. [...] supply of glucagon: no SMBG Average BG 163 Lowest BG 106 3 checks daily. 3 [...] snoring Cardiopulmonary symptoms: Reports chest pain at rest; denies dyspnea on exertion, lightheadedness or myalgias GI symptoms: Denies constipation, diarrhea, nausea/dyspepsia or vomiting Skin and extremity symptoms: Denies tingling/numbness/burning Other symptoms: Denies blurry vision or change in vision Pertinent visit history: Reports recent 911 calls; Denies recent visit to ER or recent hospital admission Self monitoring: Yes Percentage of fasting blood glucose within goal: 25%-50% of the time Dietary compliance: Diabetes: good Diabetes education in past year: Yes Glucose testing: demonstrates correct use of meter day education - understands ketone testing: Yes Physical activity: regular Date of last A1C: 09/29/18 History of retinopathy: No History of neuropathy: No Dentures: No Intake Vital Signs09/04/18 Height 5 ft 6 in 09/04/18 Weight: 214 lb 09/04/18 Body Mass Index (BMI) 34.5 09/04/18 Blood Pressure 136/82 H 09/04/18 Blood Pressure Location Lt popliteal 09/04/18 Blood Pressure Position Sitting Intake Visit Reasons: Diabetes Manager Planning Required: No Accompanied by: Self Allergies Penicillins [PCN] Allergy (Verified 09/04/18 08:07) Hives Sulfa (Sulfonamide Antibiotics) Allergy (Verified 09/04/18 08:07) Hives Medications Omeprazole [Prilosec] 20 mg PO PRN PRN 11/10/16 [History Confirmed 09/04/18] blood sugar diagnostic strips See Dose Instructions .ROUTE .MEDSUPPLY #20 ea 08/30/17 [History Confirmed 09/04/18] lancets 33 gauge See Dose Instructions .ROUTE .MEDSUPPLY #100 ea 08/30/17 [History Confirmed 09/04/18] lorazepam 0.5 mg tablet 0.5 mg PO QHS PRN #30 tab 05/22/18 [Rx Confirmed 09/04/18] losartan 100 mg tablet 100 mg PO DAILY #90 tab 06/28/18 [Rx Confirmed 09/04/18] rosuvastatin 10 mg tablet 10 mg PO DAILY #60 tab 06/28/18 [Rx Confirmed 09/04/18] liothyronine 5 mcg tablet 5 mcg PO DAILY #30 tab 07/13/18 [Rx Confirmed 09/04/18] metoprolol tartrate 25 mg tablet 25 mg PO BID #60 tab 07/14/18 [Rx Confirmed 09/04/18] Metformin HCl 1,000 mg PO BID 07/17/18 [History Confirmed 09/04/18] Metformin HCl [Glucophage] 500 mg PO LUNCH 07/17/18 [History Confirmed 09/04/18] Repaglinide 4 mg PO TIDCM 07/17/18 [History Confirmed 09/04/18] levothyroxine 50 mcg tablet 100 mcg PO QDAY #180 tab 07/17/18 [Rx Confirmed 09/04/18] hydrochlorothiazide 12.5 mg tablet 12.5 mg PO DAILY #90 tab 07/26/18 [Rx Confirmed 09/04/18] albuterol sulfate HFA 90 mcg/actuation aerosol inhaler 90 mcg INHALATION Q4H PRN PRN #6.7 g 08/27/18 [Rx Confirmed 09/04/18] azithromycin 250 mg tablet See Rx Instructions PO .COMPLEX #6 tab 08/27/18 [Rx Confirmed 09/04/18] prednisone 10 mg tablet 10 mg PO .COMPLEX #30 tab 08/27/18 [Rx Confirmed 09/04/18] Nurse's Note: blood sugars : low : 102 high : 340 PFSH Medical History Essential hypertension (Chronic) TORIBIO (obstructive sleep apnea) (Chronic) Seasonal allergies (Chronic) Neuropathy (Chronic) Acquired hypothyroidism (Chronic) Type II diabetes mellitus (Chronic) Asthma (Chronic) Difficulty balancing (Acute) Hemorrhoids (Acute) Incontinence (Acute) Depression (Chronic) Diabetes type 2, controlled (Chronic) [...] you participate in: none ROS Const Constitutional: Positive for night sweats; no anorexia, body ache, chills, [...] Positive for chest pain at rest and chest pain with exertion; no leg pain with exertion, excessive sweating, shortness of breath, dyspnea on exertion, generalized [...] long-term current use of insulin E11.9 Plan Reports she has seen b operator and feels this has helped with diet. Had visit to urgent care due to URI. Did find BG readings hard to manage on prednisone. Has 3 days left of 10mg daily. Feels cough and breathing improved. BG readings average 160 range today. She is worried about using any injectable medications. Enc to try increasing exercise. Resume januvia. RTC 4-5 weeks Renal function in range Had podiatry visit 2 weeks ago Has eye exam scheduled tomorrow. Plan Detail Additional Comments 1. Please schedule [...] regularly was reviewed. 7. The importance of proper foot care and regularly checking feet to [...] mellitus complication status: without complication Diabetes mellitus correction insulin use: without intermodal customer service use 09/04/18 0953 <Electronically signed by Patricia LACEY> Date Patricia LACEY Cosigner Signature: Date (if applicable) CC: HEMOGLOBIN A1C Collected: 08/29/2018 Status: F Source: [place] 7:23 AM [facility] [place] TYPE CODE TESTS RESULT OUT OF RANGE REFERENCE UNITS LAB L501.9985 4.2-6.3 % High HGB A1C 8.6 Performed By: #### L501.9985 #### [facility] [address] [place], [place], [id number] URGENT CARE VISIT Observed: 08/27/2018 Status: F Source: [place] REPORT 10:57 AM [facility] [place] [facility] [address] [place] [address] [address] [place] [address] OFFICE VISIT Date of Service: 08/27/18 MR#: [id number] Acct: [id number] Name: ANDREY THOMSON Rep #: [id number] : 1970 Provider: Miracle Santos Age/Sex: 47/F Location: [facility] Status: Signed Intake Vital Signs08/27/18 Body Mass Index (BMI) 34.8 08/27/18 Height 5 ft 6 in 08/27/18 Weight: 213 lb 08/27/18 Body Mass Index (BMI) 34.3 Intake Visit Reasons: asthma/congestion Chief Complaint: Congestion Manager Planning Required: No Accompanied by: self Is patient in pain?: No Allergies Penicillins [PCN] Allergy (Verified 08/27/18 09:59) Hives Sulfa (Sulfonamide Antibiotics) Allergy (Verified 08/27/18 09:59) Hives Medications Omeprazole [Prilosec] 20 mg PO PRN PRN 11/10/16 [History Confirmed 08/27/18] blood sugar diagnostic strips See Dose Instructions .ROUTE .MEDSUPPLY #20 ea 08/30/17 [History Confirmed 08/27/18] lancets 33 gauge See Dose Instructions .ROUTE .MEDSUPPLY #100 ea 08/30/17 [History Confirmed 08/27/18] lorazepam 0.5 mg tablet 0.5 mg PO QHS PRN #30 tab 05/22/18 [Rx Confirmed 08/27/18] losartan 100 mg tablet 100 mg PO DAILY #90 tab 06/28/18 [Rx Confirmed 08/27/18] rosuvastatin 10 mg tablet 10 mg PO DAILY #60 tab 06/28/18 [Rx Confirmed 08/27/18] liothyronine 5 mcg tablet 5 mcg PO DAILY #30 tab 07/13/18 [Rx Confirmed 08/27/18] metoprolol tartrate 25 mg tablet 25 mg PO BID #60 tab 07/14/18 [Rx Confirmed 08/27/18] Metformin HCl 1,000 mg PO BID 07/17/18 [History Confirmed 08/27/18] Metformin HCl [Glucophage] 500 mg PO LUNCH 07/17/18 [History Confirmed 08/27/18] Repaglinide 4 mg PO TIDCM 07/17/18 [History Confirmed 08/27/18] levothyroxine 50 mcg tablet 100 mcg PO QDAY #180 tab 07/17/18 [Rx Confirmed 08/27/18] hydrochlorothiazide 12.5 mg tablet 12.5 mg PO DAILY #90 tab 07/26/18 [Rx Confirmed 08/27/18] albuterol sulfate HFA 90 mcg/actuation aerosol inhaler 90 mcg INHALATION Q4H PRN PRN #6.7 g 08/27/18 [Rx Confirmed 08/27/18] azithromycin 250 mg tablet See Rx Instructions PO .COMPLEX #6 tab 08/27/18 [Rx Confirmed 08/27/18] prednisone 10 mg tablet 10 mg PO .COMPLEX #30 tab 08/27/18 [Rx Confirmed 08/27/18] PFSH Medical History Essential hypertension (Chronic) TORIBIO (obstructive sleep apnea) (Chronic) Seasonal allergies (Chronic) Neuropathy (Chronic) Acquired hypothyroidism (Chronic) Type II diabetes mellitus (Chronic) Asthma (Chronic) Difficulty balancing (Acute) Hemorrhoids (Acute) Incontinence (Acute) Depression (Chronic) Diabetes type 2, controlled (Chronic) [...] participate in: none HPI HPI Chief Complaint: Congestion Details: ANDREY THOMSON, is a 47 F who presents to the office today for an urgent appointment. Patient states that her symptoms started last week. She now has a cough that keeps her up at night. She has had body aches chills. She has sinus congestion, sore throat, earache, body aches. She is concerned because she has asthma and is finding it difficult to breathe at night. ROS Const Constitutional: Positive for body ache, fatigue, fever(s) and headache(s) Eyes Eyes: No light sensitivity, discharge or change in vision ENT ENT: Positive for headache(s), nasal congestion, nasal discharge, sinus pressure, post nasal drip and sore throat Resp Respiratory: Positive for cough Cardio Cardiology: No chest pain at rest, chest pain with exertion or shortness of breath Gastro GI: No diarrhea, nausea/dyspepsia or Vomiting blood/hematemesis Neuro Neurology: Positive for headache(s) Endo Endocrine: Positive for fatigue Exam Const General: cooperative, no acute distress, ill appearing acutely Orientation: alert, oriented x3 HENMT Head: atraumatic, normocephalic Ears: TM abnormal erythematous bilaterally Nose: mucous membranes and turbinates abnormal boggy and erythematous Mouth: moist mucous membranes Throat: abnormal tonsil bilaterally Eyes Sclera: sclerae normal Cornea: corneas normal Pupils: PERRL EOM: EOM intact bilaterally Neck Neck: no lymphadenopathy, trachea midline, supple Neck mass: No Thyroid: thyroid normal Resp Effort AND Inspection: normal respiratory effort, cough Quality of cough: dry Auscultation: Bilateral: Diminished Lung Sounds Cardio Palpation: normal PMI Rate: regular rate Rhythm: regular rhythm Heart Sounds: S1 normal, S2 normal, no click, no gallops, no murmurs, no rubs GI Auscultation: normal bowel sounds Percussion: normal to percussion Palpation: soft, no hepatosplenomegaly, nontender Skin General: no rashes or lesions noted Neuro General: alert, oriented x3, CN's II-XI intact bilaterally, no focal motor deficits Assessment AND Plan Problems 1. Acute non-recurrent pansinusitis J01.40 2. Non-recurrent acute suppurative otitis media of both ears without spontaneous rupture of tympanic membranes H66.003 3. Mild asthma with acute exacerbation, unspecified whether persistent J45.901 Plan Advised patient to complete course of antibiotics given. Prescription also given for prednisone. Patient is requesting a refill on her pro-air. Advised patient on the importance of hydration. Recommended the use of nfyz-[id number]-sikzavm support from Advil, Tylenol and apob-wps-udjfebh cold medications to help alleviate symptoms. Did review maximum dosing on each of these medications to avoid accidental overdose of medications. Advised that if symptoms do not improve that she should see her primary care doctor. Medications New: prednisone 10 mg PO 4 tablets for 3 days, 3 tablets for 3 days, 2 tablets for 3 days, 1 ta blet for 3 days; 30 tabs 0RF Changed: To: albuterol sulfate HFA 90 mcg/actuation 90 mcg Inhalation Q4H PRN PRN 6.7 grams 0RF Sob Or Anxiety Coding Level of Care Code Off vis,est,level 4 Diagnoses Acute non-recurrent pansinusitis J01.40 Sinusitis location: pansinusitis Chronicity: acute Recurrence: non-recurrent Non-recurrent acute suppurative otitis media of both ears without spontaneous rupture of tympanic membranes H66.003 Otitis media type: suppurative Chronicity: acute Laterality: bilateral Recurrence: non-recurrent Spontaneous tympanic membrane rupture: without spontaneous rupture Mild asthma with acute exacerbation, unspecified whether persistent J45.901 Asthma severity: mild Asthma persistence: unspecified 08/27/18 1057 <Electronically signed by Miracle MA> Date Miracle MA Cosigner Signature: Date (if applicable) CC: INTERNAL MEDICINE Observed: 08/02/2018 Status: F Source: [place] OFFICE VISIT 4:59 PM [facility] [address] [place] [address] [place] [address] OFFICE VISIT Date of Service: 07/31/18 MR#: [id number] Acct: [id number] Name: BERTOANDREY A Rep #: [id number] : 1970 Provider: Cathy Wang MD Age/Sex: 47/F Location: [facility] Status: Signed Intake Vital Signs07/31/18 Body Mass Index (BMI) 34.8 07/31/18 Height 5 ft 6 in Intake Visit Reasons: f/u Chief Complaint: f/u visit Is patient in pain?: No Allergies Penicillins [PCN] Allergy (Verified 07/26/18 09:19) [...] DAILY #90 tab 07/26/18 [Rx Confirmed 07/26/18] Is last menstrual period known: Yes Post menopausal: No PFSH Medical History Essential hypertension (Chronic) TORIBIO [...] participate in: none HPI HPI Chief Complaint: f/u visit Details: ANDREY THOMSON, is a 47yo F who presents to the office today for follow-up of her chronic medical conditions. She has no acute concerns at this time. Since her last visit, she had been to the ER with persistent chest pain and was subsequently referred to cardiology. Pharmacologic stress test was recommended which she had today. She denies any significant chest pain. Shortness of breath is also said to have improved. She has done well on metoprolol. Currently on 25 mg twice daily. Heart rate is said to be on most occasions in the 80s. ROS Const Constitutional: No body ache, chills, headache(s), weakness or fever(s) Eyes Eyes: No blurry vision, change in vision, eye pain or discharge ENT ENT: No headache(s), abnormal hearing, ear pain, ear pressure, tinnitus, dizziness/vertigo or balance problems Resp Respiratory: No cough or wheezing Cardio Cardiology: No shortness of breath, dyspnea on exertion or palpitations Gastro GI: No abdominal pain or bloating Neuro Neurology: No headache(s), weakness or abnormal hearing Aller/Imm Allergy/Immunologic: No wheezing Exam Const General: cooperative, no acute distress [...] moves all extremities, CN's II-XI intact bilaterally Psych Appearance: grossly normal Mental Status: mental status grossly normal Mood: congruent mood Affect: normal affect Assessment AND Plan 1. Shortness of breath R06.02 Plan Denies any concerns at this time. No recent asthma exacerbations. Continue current management. 2. Chest pain R07.9 Plan Chronic, intermittent. Currently following up with cardiology and had a stress test done today. No significant worsening of symptoms. Continue other management. 3. Sinus tachycardia R00.0 Plan Doing well on metoprolol. Currently on 25 mg twice daily and heart rate is said to be in the 80s for the most part. Continue current medication. 4. TORIBIO (obstructive sleep apnea) G47.33 Plan Chronic. No significant changes lately. Refer to pulmonary. Orders Referrals: 5. Type II diabetes mellitus E11.9 Plan Last A1c per patient was around 9. Blood sugars is said to rate between 130s-180s with occasional significantly elevated Numbers. Currently on metformin and Prandin. She reports compliance with her medication however admits to significant difficulty managing her diet. Lengthy discussion had on lifestyle and dietary modifications. Will refer to clinical educator. This note was generated with CleanMy[employer] dictation software. It may contain incorrect words, spelling, and punctuation that were not noted in checking the note before signing. Orders Referrals: Coding Level of Care Code Off vis,est,level 4 Diagnoses Shortness of breath R06.02 Chest pain R07.9 Sinus tachycardia R00.0 TORIBIO (obstructive sleep apnea) G47.33 Type II diabetes mellitus E11.9 Diabetes mellitus intermodal customer service insulin use: without intermodal customer service use 08/02/18 7426 <Electronically signed by Cathy Wang MD> Date Cathy Wang MD Cosigner Signature: Date (if applicable) CC: STRESS REPORT Observed: 07/31/2018 Status: F Source: [place] 5:36 PM [facility] [place] Cardiovascular Services [address] [place] [address] MR#: [id number] Acct: [id number] Name: ANDREY THOMSON Rep #: [id number] : 1970 47 From: Madi Tovar MD Primary Care: Ctahy Wang MD Status: REG CLI Ordering Dr: [...] MD Date Dictated: 07/31/181733 Date Transcribed: 07/31/181733 Server Developer: CO Signed CARDIOLOGY VISIT Observed: 07/26/2018 Status: F Source: [place] REPORT 10:59 AM [facility] [place] [facility] [address] [place] [address] OFFICE VISIT Date of Service: 07/26/18 MR#: [id number] Acct: [id number] Name: ANDREY THOMSON Rep #: [id number] : 1970 Provider: Madi Tovar MD Age/Sex: 47/F Location: [facility] Status: Signed HPI HPI Chief Complaint: Initial visit Details: ANDREY THOMSON, [...] Reasons: ER 12-3 for CP (NEW to [employer]G) Allergies Penicillins [PCN] Allergy (Verified 07/26/18 09:19) [...] Madi Tovar MD> Date Madi Tovar MD Cosigner Signature: Date (if applicable) CC: Cathy Wang MD 12 LEAD ELECTROCARDIOGRAM Observed: 07/20/2018 Status: F Source: [place] 1:42 PM [facility] [place] [facility] Cardiovascular Services [address] [place] [address] 12 Lead EKG 07/17/18 0844 MR#: [id number] Acct: [id number] Name: ANDREY THOMSON Rep #: [id number] : 1970 47 From: Clay Suresh MD Attending Dr: Status: DEP Ordering Dr: Jero Adams MD Date: 07/17/18 [...] Borderline ECG Confirmed by DEMETRICE BUENO, CLAY ([id number]), editor [place] ([id number]) on 07/20/2018 1:42:28 PM Referred By: DURGA Confirmed By:CLAY SURESH MD 07/20/18 1342 Date Clay Suresh MD CC: Narendra Adams MD; Cathy Wang MD Signed EMERGENCY DEPARTMENT Observed: 07/17/2018 Status: F Source: [place] SUMMARY 12:00 PM [facility] [place] [facility] [facility] Medical Records Department [address] [place] [address] Emergency Department Summary 07/17/18 1155 MR#: [id number] Acct: [id number] Name: ANDREY THOMSON Rep #: [id number] : 1970 47 From: Jero Adams MD [...] and has had consultations with 2 separate flight purser. She denies cough, fever, chills, or body [...] feel she can safely follow-up with a fixed income trading vice president as an outpatient. Emergency Department Course and Treatment: Follow-up with cardiology Treatment Plan: Disposition: Home stable condition Impression: Initial encounter chest pain uncertain etiology This note was generated with CleanMy[employer]M dictation software. It may contain incorrect words, [...] problems, contact your Primary Care Provider. Call [facility] [facility] ([phone]) or report to the closest Emergency Room. Call 911 if necessary. 07/17/18 1200 <Electronically signed by Jero Adams MD> Date Jero Adams MD Cosigner Signature (If Indicated): Date CC: Cathy Wang MD INTERNAL MEDICINE Observed: 07/17/2018 Status: F Source: [place] OFFICE VISIT 10:40 AM [facility] [place] [facility] [address] [place] [address] [place] [address] OFFICE VISIT Date of Service: 07/14/18 MR#: [id number] Acct: [id number] Name: ANDREY THOMSON Rep #: [id number] : 1970 Provider: Emigdio Clemente NP Age/Sex: 47/F Location: [facility] Status: Signed Intake Vital Signs07/14/18 Body Mass [...] TIDCM 07/17/18 [History Confirmed 07/17/18] Nurse's Note: [facility] Medical History TORIBIO (obstructive sleep apnea) (Chronic) [...] with symptoms. This note was generated with CleanMyCRM dictation software. It may contain incorrect words, [...] R60.0 07/17/18 1040 <Electronically signed by Emigdio Clemente APPAREL SALES ASSOCIATE-C> Date Emigdio Chyna APPAREL SALES ASSOCIATE-C Olyigner Signature: Date (if applicable) CC: CTA CHEST W/WO Observed: 07/17/2018 Status: F Source: [place] CONTRAST 10:17 AM [facility] [place] [facility] Imaging Services [address] [place] [address] CTA Chest W/WO Contrast MR#: [id number] Acct: [id number] Name: ANDREY THOMSON Rep #: [id number] : 1970 F 47 From: Jj Rivera MD PCP: Cathy Wang MD Status: REG ER Study: CTA Chest W/WO Contrast Date of Exam: 07/17/18 Exam# [id number] Ordering Dr: Jero Adams MD STUDY: CTA [...] Jj Rivera MD at 11:21 EST Tel [phone], Service support , CC: Narendra Adams MD; Cathy Wang MD Server Developer: Signed CHEST PA AND LATERAL Observed: 07/17/2018 Status: F Source: [place] 9:19 AM [facility] [place] [facility] Imaging Services [address] [place] [address] Chest PA and Lateral MR#: [id number] Acct: [id number] Name: ANDREY THOMSON Rep #: [id number] : 1970 F 47 From: Jj Rivera MD PCP: Cathy Wang MD Status: REG ER Study: Chest PA and Lateral Date of Exam: 07/17/18 Exam# [id number] Ordering Dr: Jero Adams MD STUDY: X-RAY [...] Jj Rivera MD at 10:08 EST Tel [phone], Service support , CC: Narendra Adams MD; Cathy Wang MD Server Developer: Signed CBC W/DIFF, AUTOMATED Collected: 07/17/2018 Status: F Source: [place] 9:00 AM [facility] [place] TYPE CODE TESTS RESULT OUT OF [...] Lymph 3.40 Performed By: #### L100.0100 #### [facility] [address] [place], [place], [address] BASIC METABOLIC Collected: 07/17/2018 Status: F Source: [place] PROFILE (BMP) 9:00 AM [facility] [place] TYPE CODE TESTS RESULT OUT OF [...] 8 Performed By: #### L500.2500, L501.4010 #### [facility] [address] [place], [address] TROPONIN-I Collected: 07/17/2018 Status: F Source: [place] 9:00 AM [facility] [place] TYPE CODE TESTS RESULT OUT OF RANGE REFERENCE UNITS LAB L501.4010 <0.045 ng/mL Normal < 0.015 TROPONIN-I Result Comment: TROPONIN-I EXPECTED VALUES <0.045 Negative 0.045 - 0.590 Consistent with Cardiac Damage > OR = 0.600 Critical Value Not every elevated troponin is indicative of OR. These values should be used with clinical judgement in examining the patient's clinical picture for diagnosis. To establish a diagnosis of OR versus myocardial injury, there must be a demonstrated rise and/or fall in the troponin values, in addition to ischemic symptoms, EKG changes, new regional wall motion abnormality, and/or angiographical evidence. PLEASE NOTE: REFERENCE RANGES EDITED 17 Performed By: #### L500.2500, L501.4010 #### [facility] [address] [facility] [place], [address] BNP,B-TYPE NATRIURETIC Collected: 07/17/2018 Status: F Source: [place] PEPTIDE 9:00 AM [facility] [place] TYPE CODE TESTS RESULT OUT OF RANGE REFERENCE UNITS LAB L503.6620 0-100 pg/mL Normal B-TYPE 28.8 REZA PEP Performed By: #### L503.6620 #### [facility] [address] [facility] [place], [address] SCREENING MAMM (CAD), Observed: 07/07/2018 Status: F Source: [place] BILAT 12:30 PM [facility] [place] [facility] Imaging Services [address] [place] [address] SCREENING MAMM (CAD), BILAT MR#: [id number] Acct: [id number] Name: ANDREY THOMSON Rep #: [id number] : 1970 F 47 From: Jj Rivera MD PCP: Cathy Wang MD Status: [facility] Study: SCREENING MAMM (CAD), BILAT Date of Exam: 07/07/18 Exam# [id number] Ordering Dr: Cathy Wang MD MAMMOGRAPHY - [...] delay biopsy of a clinically suspicious abnormality. [id number] Electronically Signed: Jj Rivera MD at 9:37 EST Tel [phone], Service support , CC: Cathy Wang MD Server Developer: Signed INTERNAL MEDICINE Observed: 07/03/2018 Status: F Source: [place] OFFICE VISIT 1:37 PM [facility] [place] [facility] [address] [place] [address] [place] [address] OFFICE VISIT Date of Service: 06/28/18 MR#: [id number] Acct: [id number] Name: ANDREY THOMSON Rep #: [id number] : 1970 Provider: Cathy Wang MD Age/Sex: 47/F Location: [facility] Status: Signed Intake Vital Signs06/28/18 Height 5 [...] DAILY #60 tab 06/28/18 [Rx Confirmed 06/28/18] PFSH Medical History TORIBIO (obstructive sleep apnea) [...] ENDOCRINOLOGY VISIT Observed: 06/07/2018 Status: F Source: [place] REPORT 7:36 AM [facility] [place] [facility] [address] [place] [address]. [address] [place] [address] OFFICE VISIT Date of Service: 06/06/18 MR#: [id number] Acct: [id number] Name: ANDREY THOMSON Rep #: [id number] : 1970 Provider: Patricia Harmon NP Age/Sex: 47/F [place] [facility] Status: Signed HPI History of present illness [...] H 06/06/18 Blood Pressure Location Lt popliteal 06/06/18 Blood Pressure Position Sitting Intake Visit Reasons: Diabetes follow-up Manager Planning Required: No Accompanied by: Self Allergies Penicillins [...] : low : 105 high : 207 [facility] Medical History TORIBIO (obstructive sleep apnea) (Chronic) [...] mellitus complication status: without complication Diabetes mellitus intermodal customer service insulin use: without correction use Hyperlipidemia associated with type 2 diabetes mellitus E11.69; E78.5 Hypothyroidism (acquired) E03.9 06/07/18 0736 <Electronically signed by Patricia SANTOROC> Date Patricia Harmon APPAREL SALES ASSOCIATE-C Cosigner Signature: Date (if applicable) CC: 12 LEAD ELECTROCARDIOGRAM Observed: 06/01/2018 Status: F Source: [place] 10:22 AM [facility] [place] [facility] Cardiovascular Services [address] [facility] [address] [address] 12 Lead EKG 05/29/18 1555 MR#: [id number] Acct: [id number] Name: ANDREY THOMSON Rep #: [id number] : 1970 47 From: Clay Suresh MD Attending Dr: Cathy Wang MD Status: REG CLI Ordering Dr: Cathy Wang MD Date: 05/29/18 Location: [facility] Sex: F C Admitted: Test Reason : SOB Blood Pressure : / mmHG Vent. Rate : 102 BPM Atrial Rate : 102 BPM P-R Int : 136 ms QRS Dur : 074 ms QT Int : 354 ms P-R-T Axes : 031 -03 011 degrees QTc Int : 461 ms Sinus tachycardia Otherwise normal ECG Confirmed by DEMETRICE BUENO, CLAY ([id number]), editor city [place] ([id number]) on 06/01/2018 10:21:33 AM Referred By: Cathy Wang Confirmed By:CLAY SURESH MD 06/01/18 1021 Date Clay Suresh MD CC: Cathy Wang MD Signed ECHOCARDIOGRAM COMPLETE Observed: 05/30/2018 Status: F Source: [place] 10:26 AM [facility] REPOSIT[facility] Cardiovascular Services [address] [place] [address] Echo Complete 05/29/18 1605 MR#: [id number] Acct: [id number] Name: ANDREY THOMSON Rep #: [id number] : 1970 47 From: Madi Tovar MD Attending Dr: Cathy Wang MD Status: REG CLI Ordering Dr: Cathy Wang MD Date: 05/29/18 Location: [facility] Sex: F C Admitted: Reason For Study: [...] MD Date Dictated: 05/29/18 1605 Date Transcribed: 05/30/181025 Server Developer: Signed CBC W/DIFF, AUTOMATED Collected: 05/29/2018 Status: F Source: [place] 7:32 AM [facility] [place] TYPE CODE TESTS RESULT OUT OF [...] Performed By: #### L100.0100, L500.4100, L501.9520 #### [facility] [address] [place], [place], [address] LIPID PROFILE Collected: 05/29/2018 Status: F Source: [place] 7:32 AM [facility] [place] TYPE CODE TESTS RESULT OUT OF [...] Performed By: #### L100.0100, L500.4100, L501.9520 #### [facility] [address] [place], [address] THYROID STIM HORMONE Collected: 05/29/2018 Status: F Source: [place] (TSH) 7:32 AM [facility] [place] TYPE CODE TESTS RESULT OUT OF RANGE REFERENCE UNITS LAB L501.9520 0.358-3.74 uIU/mL Normal TSH 2.44 Performed By: #### L100.0100, L500.4100, L501.9520 #### [facility] [address] [place], [address] INTERNAL MEDICINE Observed: 05/23/2018 Status: F Source: [place] OFFICE VISIT 2:30 PM [facility] [place] [facility] [address] [place] [address] [place] [address] OFFICE VISIT Date of Service: 05/22/18 MR#: [id number] Acct: [id number] Name: ANDREY THOMSON Rep #: [id number] : 1970 Provider: Cathy Wang MD Age/Sex: 47/F Location: [facility] Status: Signed Intake Vital Signs05/22/18 Height 5 [...] at work. This note was generated with [employer] software. It may contain incorrect words, spelling, [...] ENDOCRINOLOGY VISIT Observed: 02/28/2018 Status: F Source: [place] REPORT 7:22 AM [facility] [place] [facility] [address] [place] [address] [address] [place] [address] OFFICE VISIT Date of Service: 02/27/18 MR#: [id number] Acct: [id number] Name: Andrey Thomson Rep #: [id number] : 1970 Provider: Patricia Harmon NP Age/Sex: 47/F [place] [facility] [place]: Signed HPI History of present illness [...] brachial Intake Visit Reasons: 3 M FU Manager Planning Required: No Accompanied by: None Is patient [...] mellitus complication status: without complication Diabetes mellitus correction insulin use: without intermodal customer service use Essential hypertension I10 Hypertension type: essential hypertension Hypothyroidism (acquired) E03.9 Hyperlipidemia associated with type 2 diabetes mellitus E11.69; E78.5 Other elevated white blood cell (WBC) count D72.828 Leukocytosis type: other Time Spent (min) 45 02/28/18 0722 <Electronically signed by Patricia LACEY> Date Patricia LACEY Cosigner Signature: Date (if applicable) CC: COMPREHENSIVE METABOLIC Collected: 02/17/2018 Status: F Source: [place] HUGO 7:45 AM [facility] [place] TYPE CODE TESTS RESULT OUT OF [...] GAP 10 Performed By: #### L500.4050 #### [facility] [address] [place], [address] HEMOGLOBIN A1C Collected: 02/17/2018 Status: F Source: [place] 7:45 AM [facility] [place] TYPE CODE TESTS RESULT OUT OF RANGE REFERENCE UNITS LAB L501.9985 4.2-6.3 % High HGB A1C 9.3 Performed By: #### L501.9985 #### [facility] [address] [place], [address] ENDOCRINOLOGY VISIT Observed: 12/07/2017 Status: F Source: [place] REPORT 8:01 AM [facility] [place] [facility] [address] [place], [place] [address] OFFICE VISIT Date of Service: 12/06/17 MR#: [id number] Acct: [id number] Name: Andrey Thomson Rep #: [id number] : 1970 Provider: Patricia Harmon NP Age/Sex: 47/F [place] [facility] Status: Signed HPI History of present illness [...] Intake Visit Reasons: Diabetes Mellitus Type 2 Manager Planning Required: No Accompanied by: Self Is patient [...] one half tablet at lunch and one kvddeZ85.9 t in evening. On Hold: Plan Detail [...] mellitus complication status: without complication Diabetes mellitus correction insulin use: without intermodal customer service use Essential hypertension I10 Hypertension type: essential hypertension Hypothyroidism (acquired) E03.9 Hyperlipidemia associated with type 2 diabetes mellitus E11.69; E78.5 Time Spent (min) 30 12/07/17 0801 <Electronically signed by Patricia LACEY> Date Patricia LACEY Cosigner Signature: Date (if applicable) CC: COMPREHENSIVE METABOLIC Collected: 11/23/2017 Status: F Source: [place] ARIAS 7:45 AM [facility] [place] [facility] TYPE CODE TESTS RESULT OUT OF [...] 9 Performed By: #### L500.4050, L501.9520 #### [facility] [address] [place], [address] THYROID STIM HORMONE Collected: 11/23/2017 Status: F Source: [place] (TSH) 7:45 AM [facility] [place] [facility] TYPE CODE TESTS RESULT OUT OF RANGE REFERENCE UNITS LAB L501.9520 0.358-3.74 uIU/mL Normal TSH 1.54 Performed By: #### L500.4050, L501.9520 #### [facility] [address] [place], [address] HEMOGLOBIN A1C Collected: 11/23/2017 Status: F Source: [place] 7:45 AM [facility] [place] [facility] TYPE CODE TESTS RESULT OUT OF RANGE REFERENCE UNITS LAB L501.9985 4.2-6.3 % High HGB A1C 9.7 Performed By: #### L501.9985 #### [facility] [address] [place], [address] ENDOCRINOLOGY VISIT Observed: 09/18/2017 Status: F Source: [place] REPORT 11:58 AM [facility] [place] [facility] [address] [place], [place] [address] OFFICE VISIT Date of Service: 09/13/17 MR#: [id number] Acct: [id number] Name: ANDREY THOMSON Rep #: [id number] : 1970 Provider: Patricia Harmon NP Age/Sex: 47/F [place] [facility] Status: Signed HPI History of present illness [...] Position Sitting Intake Visit Reasons: 3 M Manager Planning Required: No Accompanied by: Self Is patient [...] PO QDAY #30 tab 09/13/17 [Rx Confirmed 01/30/18] Is last menstrual period known: No Post menopausal: No Patient : No Nurse's Note: DIABETES TYPE 2 DX: 2011 LAST EXACERBATION : DKA : 01/29 HYPOGLYCEMIC EPISODE : NEVER ER VISIT : 01/29 BLOOD SUGARS : LOW : 155 HIGH : 265 PFS Medical History Allergic rhinitis (Acute) Asthma (Acute) [...] mellitus complication status: without complication Diabetes mellitus intermodal customer service insulin use: without intermodal customer service use Essential hypertension I10 Hypertension type: essential hypertension Hyperlipidemia associated with type 2 diabetes mellitus E11.69; E78.5 Time Spent (min) 30 09/18/17 1158 <Electronically signed by Patricia LACEY> Date Patricia LACEY Cosigner Signature: Date (if applicable) CC: URGENT CARE VISIT Observed: 09/13/2017 Status: F Source: [place] REPORT 10:25 AM [facility] [address] [place] [address] [address] [place], [place] [address] OFFICE VISIT Date of Service: 09/13/17 MR#: [id number] Acct: [id number] Name: ANDREY THOMSON Rep #: [id number] : 1970 Provider: Ganesh MA Age/Sex: 47/F Location: [facility] Status: Signed Intake Vital Signs09/13/17 Height 5 ft 6 in 09/13/17 Weight: 220 lb 09/13/17 Body Mass Index (BMI) 35.5 Intake Visit Reasons: FLU Manager Planning Required: No Is patient in pain?: No [...] QDAY #30 tab 09/13/17 [Rx Confirmed 09/13/17] [facility] Medical History Allergic rhinitis (Acute) Asthma (Acute) [...] her headaches. She is also tried several lnzh-csy-mnnbfpb cold and sinus medications with no relief. [...] <Electronically signed by Ganesh MA> Date Ganesh MA Cosigner Signature: Date (if applicable) CC: ALLERGIES ALLERGIES DATE TYPE / CODE NAME / CODE REACTION SEVERITY SOURCE 09/04/2018 Drug Penicillins/F Hives Unknown [facility] Allergy/4160 [id number](RXN Hospital 16135(SNOMED ORM) Repository CT) 09/04/2018 Drug Sulfa Hives Unknown [facility] Allergy/4160 (Sulfonamide Hospital 51263(SNOMED Antibiotics)/ Repository CT) [id number](RX NORM) ENCOUNTERS ENCOUNTERS ADMIT/DISCHARGE ACCOUNT ADMITTING ENCOUNTER LOCATION SOURCE NUMBER CLASS 09/04/2018/ [id number] Ambulatory [facility] [place] 9 3 [facility] Repository 08/29/2018 [id number] Ambulatory [place] 1 [facility] ing:LAB Repository 08/27/2018/ [id number] Ambulatory BMSBuilding:B [place] 9 4 [facility] Repository 08/25/2018 [id number] Ambulatory [place] 6 [facility] ing:DC Repository 07/31/2018/ [id number] Ambulatory BMSBuilding:B [place] 8 8 [place].[facility] Repository 07/31/2018 [id number] Ambulatory BMSBuilding:[place] 6 [facility] Repository 07/31/2018 [id number] Ambulatory [place] 5 [facility] ing:[facility] Repository 07/26/2018/ [id number] Ambulatory BMSBuilding:[facility] [place] 8 2 [facility] Repository 07/24/2018 [id number] Ambulatory BMSBuilding:[facility] [place] 3 [facility] Repository 07/19/2018/ [id number] Ambulatory [place] 8 1 [facility] ing:DC Repository 07/18/2018 [id number] Ambulatory [place] 3 [facility] ing:SL Repository 07/17/2018/ [id number] Emergency [place] Sweta 8 1 [facility]:ED Repository 07/14/2018/ [id number] Ambulatory BMSBuilding:B Sumner 8 0 MS.CINDY [facility] Repository 07/07/2018 [id number] Ambulatory Sumner Sweat 7 [facility] ing:OPBI Repository 06/28/2018/ [id number] Ambulatory BMSBuilding:B Sumner 8 0 MS.BIM [facility] Repository 06/06/2018/ [id number] Ambulatory BMSBuilding:B Sweta 8 6 MS.[facility] Repository 05/29/2018 [id number] Ambulatory BMSBuilding:B Sweta 0 MS.CF.[facility] Repository 05/29/2018 [id number] Ambulatory BMSBuilding:W Sweta 3 [facility] Repository 05/29/2018 [id number] Ambulatory Sumner Sumner 9 [facility] ing:[facility] Repository 05/22/2018/ [id number] Ambulatory BMSBuilding:B Sweta 8 9 MS.BIM [facility] Repository 05/18/2018/ [id number] Ambulatory Sweta Sweta 8 0 [facility] ing:DC Repository 05/04/2018/ [id number] Ambulatory Sumner Sumner 8 6 [facility] ing:DC Repository 03/16/2018/ [id number] Ambulatory Sweta Sumner 8 5 [facility] ing:DC Repository 02/27/2018/ [id number] Ambulatory BMSBuilding:B Sweta 8 8 MS.[facility] Repository 02/17/2018 [id number] Ambulatory Sweta Sumner 1 [facility] ing:[facility] Repository 02/06/2018/ [id number] Ambulatory Sweta Sweta 8 6 [facility] ing:DC Repository 12/20/2017/ [id number] Ambulatory Sweta Sumner 8 0 [facility] ing:DC Repository 12/06/2017/ [id number] Ambulatory BMSBuilding:B Sumner 8 6 MS.[facility] Repository 11/23/2017 [id number] Ambulatory Sweta Sweta 9 [facility] ing:[facility]S.[facility] Repository 09/13/2017/ [id number] Ambulatory BMSBuilding:B Sweta 8 5 MS.[facility] Repository 09/13/2017/ [id number] Ambulatory BMSBuilding:B Sweta 8 7 MS.[facility] Repository PAYERS PAYERS ENCOUNTER GUARANTOR PAYER SUBSCRIBER SOURCE 09/04/2018 ANDREY A Primary ANDREY A Sweta [id number] Insurance:Ward HARRIS: [facility] Number: [id number], [place] [id number] Repository 94376Hht: (330) Date:7273-25-80CW [phone] ([facility] [id number] [address]FH: 09/04/2018 Secondary NOT GIVENUNK Sumner Insurance:SELF PAY [facility] Number: Effective Repository Date:2018-09-04 08/29/2018 ANDREY A Primary ANDREY A Sumner [id number] Insurance:AEChrista [facility] Number: [id number], [place] [id number] Repository 32506Fku: (330) Date:8227-53-16DL [phone] () [place], [place] [address]JJ: 08/29/2018 Secondary NOT GIVENUNK Sweta Insurance:SELF PAY [facility] Number: Effective Repository Date:2018-08-29 08/27/2018 ANDREY A Primary ANDREY A Sweta [id number] Insurance:AETNAPolicy [facility] Number: [id number], [place] [id number] Repository 36876Tpe: (330) Date:4481-75-70CL [phone] () [id number] [place], [place] [address]JA: 08/27/2018 Secondary NOT GIVENUNK Sumner Insurance:SELF PAY [facility] Number: Effective Repository Date:2018-08-27 08/25/2018 ANDREY A Primary ANDREY A Sweta [id number] Insurance:AETNAPolicy CARICOFEDOB: [facility] Number: [id number], [place] [id number] Repository 72518Dam: (330) Date:7210-54-32MM [phone] (HP) [id number] [place] [address]UE: 08/25/2018 Secondary NOT GIVENUNK Sweta Insurance:SELF PAY [facility] Number: Effective Repository Date:2018-08-15 07/31/2018 ANDREY A Primary ANDREY A Sumner [id number] Insurance:AETNAPolicy CARICOFEDOB: [facility] Number: [id number], [place] [id number] Repository 44858Xoq: (330) Date:4427-40-94BW [phone] () [id number] [place] [address]LM: 07/31/2018 Secondary NOT GIVENUNK Sumner Insurance:SELF PAY [facility] Number: Effective Repository Date:2018-07-31 07/31/2018 ANDREY A Primary ANDREY A Sumner [id number] Insurance:AETNAPolicy CARICOFEDOB: [facility] [place] Number: [id number], [place] [id number] Repository 17207Npi: (330) Date:2177-48-63MT [phone] () [id number] [place] [address]OC: 07/31/2018 Secondary NOT GIVENUNK Sweta Insurance:SELF PAY [facility] Number: Effective Repository Date:2018-07-31 07/31/2018 ANDREY A Primary ANDREY A Sweta [id number] Insurance:AETNAPolicy [facility]OFEDOB[facility] Number: [id number], [place] [id number] Repository 71959Xnj: (330) Date:7895-65-73QW [phone] () [id number] [place] [address]NQ: 07/31/2018 Secondary NOT GIVENUNK Sumner Insurance:SELF PAY [facility] Number: Effective Repository Date:2018-07-26 07/26/2018 ANDREY A Primary ANDREY A Sweta [id number] Insurance:AETNAPolicy CARICOFEDOB: [facility] [place] Number: [id number], [place] [id number] Repository 53887Cbo: (330) Date:3510-31-87NB [phone] (HP) [id number] MICHAELS [address]VP: 07/26/2018 Secondary NOT GIVENUNK Sweta Insurance:SELF PAY [facility] Number: Effective Repository Date:2018-07-26 07/24/2018 ANDREY A Primary ANDREY A Sumner [id number] Insurance:AETNAPolicy CARICOFEDOB: [facility] [place] Number: [id number], [place] [id number] Repository 88023Hrf: (330) Date:6692-97-01SP [phone] () [id number] PASDEBBI[place] [address]TD: 07/24/2018 Secondary NOT GIVENUNK Sweta Insurance:SELF PAY [facility] Number: Effective Repository Date:2018-07-24 07/19/2018 ANDREY A Primary NADREY A Sumner [id number] Insurance:AETNAPolicy CARICOFEDOB: Community [place] Number: [id number], [place] [id number] Repository 72268Nen: (330) Date:3472-93-55ZN [phone] () [id number] [place] [address]GL: 07/19/2018 Secondary NOT GIVENUNK Sumner Insurance:SELF PAY [facility] Number: Effective Repository Date:2018-06-15 07/18/2018 ANDREY A Primary ANDREY A Sweta [id number] Insurance:AETNAPolicy CARICOFEDOB: [facility] [place] Number: [id number], [place] [id number] Repository 49824Ciw: (330) Date:3244-29-29NZ [phone] () 590649YO [place] [address]IJ: 07/18/2018 Secondary NOT GIVENUNK Sumner Insurance:SELF PAY [facility] Number: Effective Repository Date:2018-07-13 07/17/2018 ANDREY A Primary ANDREY A Sumner [id number] Insurance:AETNAPolicy CARICOFEDOB: [facility] [place] Number: [id number], [place] [id number] Repository 27397Kzm: (330) Date:7939-69-55OG [phone] () [id number] [place] [address]EJ: 07/17/2018 Secondary NOT GIVENUNK Sumner Insurance:SELF PAY [facility] Number: Effective Repository Date:2018-07-17 07/14/2018 ANDREY A Primary ANDREY A Sumner [id number] Insurance:AETNAPolicy CARICOFEDOB: [facility] [place] Number: [id number], [place] [id number] Repository 70965Uoj: (330) Date:9342-77-19DK [phone] () 464573PEWO[place], [place] [address]NH: 07/14/2018 Secondary NOT GIVENUNK Sumner Insurance:SELF PAY [facility] Number: Effective Repository Date:2018-07-14 07/07/2018 ANDERY A Primary ANDREY A Sumner [id number] Insurance:AETNAPolicy CARICOFEDOB: [facility] [place] Number: [id number], [place] [id number] Repository 95510Jaa: (330) Date:2800-97-26LI [phone] () [id number], [place] [address]NW: 07/07/2018 Secondary NOT GIVENUNK Sumner Insurance:SELF PAY [facility] Number: Effective Repository Date:2018-05-23 06/28/2018 ANDREY A Primary ANDREY A Sumner [id number] Insurance:AETNAPolicy CARICOFEDOB: [facility] [place] Number: [id number], [place] [id number] Repository 39008Fsz: (330) Date:7357-03-59EV [phone] () 462171IZWOOLWICH, [place] [address]AE: 06/28/2018 Secondary NOT GIVENUNK Sumner Insurance:SELF PAY [facility] Number: Effective Repository Date:2018-06-28 06/06/2018 ANDREY A Primary ANDREY A Sweta [id number] Insurance:AETNAPolicy CARICOFEDOB: [facility] [place] Number: [id number], [place] [id number] Repository 38506Jhy: (330) Date:2963-17-15NS [phone] () [id number] [place], [place] [address]FZ: 06/06/2018 Secondary NOT GIVENUNK Sumner Insurance:SELF PAY [facility] Number: Effective Repository Date:2018-06-06 05/29/2018 ANDREY A Primary ANDREY A Sumner [id number] Insurance:AETNAPolicy CARICOFEDOB: [facility] [place] Number: [id number], [place] [id number] Repository 59346Hbw: (330) Date:9108-60-70MJ [phone] () [id number] PASDEBBIE [place] [address]IQ: 05/29/2018 Secondary NOT GIVENUNK Sweta Insurance:SELF PAY [facility] Number: Effective Repository Date:2018-05-29 05/29/2018 ANDREY A Primary ANDREY A Sweta [id number] Insurance:AETNAPolicy [facility]OB[facility] Number: [id number], [place] [id number] Repository 91101Fwk: (330) Date:5784-11-20SG [phone] () [id number] PASDEBBIE [place] [address]PH: 05/29/2018 Secondary NOT GIVENUNK Sumner Insurance:SELF PAY [facility] Number: Effective Repository Date:2018-05-29 05/29/2018 ANDREY A Primary ANDREY A Sumner [id number] Insurance:AETNAPolicy CARICOFEDOB: [facility] [place] Number: [id number], [place] [id number] Repository 08928Uzf: (330) Date:2831-73-27LU [phone] () [id number] PASDEBBIE [place] [address]NT: 05/29/2018 Secondary NOT GIVENUNK Sumner Insurance:SELF PAY [facility] Number: Effective Repository Date:2018-05-22 05/22/2018 ANDREY A Primary ANDREY A Sumner [id number] Insurance:AETNAPolicy CARICOFEDOB: [facility] [place] Number: [id number], [place] [id number] Repository 92988Wkm: (330) Date:5280-82-29GG [phone] () 066546KIWO[place], [place] [address]NF: 05/22/2018 Secondary NOT GIVENUNK Sumner Insurance:SELF PAY [facility] Number: Effective Repository Date:2018-05-22 05/18/2018 ANDREY A Primary ANDREY A Sweta [id number] Insurance:AETNAPolicy [facility]OB[facility] Number: [id number], [place] [id number] Repository 31774Mth: 330) Date:4556-90-95GY [phone] () 553049EIWOOLWICH, [place] [address]VV: 05/18/2018 Secondary NOT GIVENUNK Sweta Insurance:SELF PAY [facility] Number: Effective Repository Date:2018-05-15 05/04/2018 ANDREY A Primary ANDREY A Sumner [id number] Insurance:AETNAPolicy CARICOFEDOB: [facility] [place] Number: [id number], [place] [id number] Repository 33599Kqu: (330) Date:6311-89-86PW [phone] () 740630[place]WWO[place], [place] [address]RC: 05/04/2018 Secondary NOT GIVENUNK Sumner Insurance:SELF PAY [facility] Number: Effective Repository Date:2018-04-15 03/16/2018 ANDREY A Primary ANDREY A Sumner [id number] Insurance:AETNAPolicy CARICOFEDOB: [facility] [place] Number: [id number], [place] [id number] Repository 74353Qhb: (330) Date:6622-60-56DW [phone] () 554957ENWOOLWICH, [place] [address]JR: 03/16/2018 Secondary NOT GIVENUNK Sumner Insurance:SELF PAY [facility] Number: Effective Repository Date:2018-02-12 02/27/2018 ANDREY A Primary ANDREY A Sumner [id number] Insurance:AETNAPolicy CARICOFEDOB: [facility] Number: [id number], [place] [id number] Repository 70020Dhi: (330) Date:7237-65-66WG [phone] () 816338BNWOOL[place], [place] [address]HK: 02/27/2018 Secondary NOT GIVENUNK Sumner Insurance:SELF PAY [facility] Number: Effective Repository Date:2018-02-27 02/17/2018 ANDREY A Primary NOT GIVENUNK Sweta [id number] Insurance:SELF [place]Y [place] Number: Effective Repository 54927Qqm: (330) Date:2018-02-17 [facility]8765 () 02/06/2018 ANDREY A Primary ANDREY A Sweta [id number] Insurance:AETNAPolicy CARICOFEDOB: [facility] Number: [id number], [place] [id number] Repository 63963Eow: (330) Date:9993-49-32JE [phone] () 630858WDWOOLWICH, [place] [address]KW: 02/06/2018 Secondary NOT GIVENUNK Sumner Insurance:SELF PAY [facility] Number: Effective Repository Date:2018-01-13 12/20/2017 ANDREY A Primary ANDREY A Sweta [id number] S Insurance:AETNAPolicy CARICOFEDOB: [facility] Number: [id number], [place] [id number] Repository 49436Axp: (330) Date:4889-00-82LM [phone] () [id number] [place] [address]RT: 12/20/2017 Secondary NOT GIVENUNK Sumner Insurance:SELF PAY [facility] Number: Effective Repository Date:2017-12-14 12/06/2017 ANDREY A Primary ANDREY A Sumner [id number] S Insurance:AETNAPolicy CARICOFEDOB: [facility] [address] Number: [id number], [place] [id number] Repository 60088Pya: (330) Date:6558-28-37NN [phone] () [id number] [place] [address]OH: 12/06/2017 Secondary NOT GIVENUNK Sweta Insurance:SELF PAY [facility] Number: Effective Repository Date:2017-12-06 11/23/2017 ANDREY A Primary NOT GIVENUNK Sweta [id number] S Insurance:SELF PAY [place] Number: Effective Repository 86518Vhd: (330) Date:2017-11-23 [facility]-8701 () 09/13/2017 ANDREY A Primary ANDREY A Sumner [id number] S Insurance:AETNAPolicy CARICOFEDOB: [facility] Number: [id number], [place] [id number] Repository 38775Ini: (330) Date:0824-05-27CW [phone] () [id number] [place] [address]QX: 09/13/2017 Secondary NOT GIVENUNK Sweta Insurance:SELF PAY [facility] Number: Effective Repository Date:2017-09-13 09/13/2017 Andrey A Primary Andrey A Sweta [id number] Insurance:AETNAPolicy CaricofeDOB: [facility] Number: [id number], [place] [id number] Repository 25407Vja: (330) Date:5413-74-72RP [phone] () [id number] [place] [address]XS: 09/13/2017 Secondary NOT GIVENUNK Sumner Insurance:[facility]LF PAY [facility] Number: Effective Repository Date:2017-09-12
== END ==
PROVIDERS: Family Provider Internal Medicine; PCP Internal Medicine; Referring Provider Internal Medicine Cardiovascular Disease; Visit Provider Internal Medicine Cardiovascular Disease
DX: R07.9 Chest pain, unspecified (principal)
CPT/HCPCS: 78452; 93017; A9500; A4216; J2785

== ENCOUNTER → 2018-08-29 07:15 | Outpatient (CLI) | payer OTHER, SELFPAY ==
[2018-08-27 10:03] VITALS: BMI 34.8
[2018-08-29 09:32] LABS: Hemoglobin A1c 8.6 % (4.2-6.3)
== END ==
PROVIDERS: Family Provider Internal Medicine; PCP Internal Medicine; Referring Provider Nurse Practitioner; Visit Provider Nurse Practitioner
DX: E11.9 Type 2 diabetes mellitus without complications (principal)
CPT/HCPCS: 36415; 83036

== ENCOUNTER 2018-09-27 15:51 | Outpatient (RCR) | payer OTHER, SELFPAY ==
[2018-09-04 09:02] VITALS: BMI 34.8
== END 2018-09-27 23:59 | disposition home or self-care (01) ==
LOC: DC 15:51
PROVIDERS: Family Provider Internal Medicine; PCP Nurse Practitioner; Referring Provider Nurse Practitioner; Visit Provider Nurse Practitioner
DX: E11.9 Type 2 diabetes mellitus without complications (principal); Z71.3 Dietary counseling and surveillance
CPT/HCPCS: G0109

== ENCOUNTER → 2018-10-31 08:31 | Outpatient (CLI) | payer OTHER, SELFPAY ==
[2018-10-31 08:16] VITALS: BMI 34.5
[2018-10-31 12:30] LABS: Absolute Lymphocyte Count 2.61 X10^3/ul (0.83-4.51); Absolute Neutrophil Count 11.5 X10^3/uL (2.0-7.7); Basophil# 0.05 X10^3/uL; Basophil% 0.3 % (0-1); Eosinophil# 0.47 X10^3/uL; Hematocrit 38.7 % (37-47); Hemoglobin 11.4 g/dl (12.0-15.0); Lymphocyte # 2.61 X10^3/ul (4.0); Lymphocyte % 16.7 % (19-41); Mean Corp Hgb Conc 29.5 g/gl (32-36); Monocyte% 5.8 % (0-10); Neutrophil # 11.52 X10^3/uL (2.7-7.7); Neutrophil % 73.7 % (47-70); Platelet Count 516 K/mm3 (150-450); RBC Distribution Width CV 18.7 % (11.6-14.6); RBC Distribution Width SD 52.1 fl (35.1-43.9); Red Blood Count 4.96 M/mm3 (4.2-5.4); White Blood Count 15.6 K/mm3 (4.4-11.0)
[2018-10-31 12:36] LABS: POSITIVE COUNT NO; POSITIVE DIFFERENTIAL NO; POSITIVE MORPHOLOGY NO
[2018-10-31 12:50] LABS: Hemoglobin A1c 7.3 % (4.2-6.3)
[2018-10-31 13:09] LABS: ALB/GLOB Ratio 0.8 RATIO (0.9-2.4); AST(SGOT) 14 U/L (15-37); Alanine Aminotransfer ALT/SGPT 20 U/L (13-56); Albumin, Serum 3.5 g/dL (3.2-5.0); Alkaline Phosphatase 84 U/L (45-117); Anion Gap 9 (5-15); BUN 14 mg/dL (7-18); BUN/Creat Ratio 14.3 RATIO (10-20); Calcium,Total 9.2 mg/dL (8.5-10.1); Chloride 102 mmol/L (98-107); Cholesterol 134 mg/dL (200); Creatinine, Serum 0.98 mg/dL (0.55-1.02); EST Glomerular Filtration Rate 65 mL/min (>60); Est Glom Filt Rate - Afr Amer 78 mL/min (>60); Globulin 4.5 g/dL (2.2-4.2); Glucose 170 mg/dL (74-106); High Density Lipoprotein 45 mg/dL; Sodium Level 138 mmol/L (136-145); Thyroid Stim Hormone (TSH) 1.52 uIU/mL (0.358-3.74); Triglycerides 146 mg/dL; Very Low Density Lipoprotein 29 mg/dL (5-40)
== END ==
LOC: BIMLAB 08:31
PROVIDERS: Family Provider Internal Medicine; PCP Internal Medicine; Visit Provider Internal Medicine
DX: E11.9 Type 2 diabetes mellitus without complications (principal); E03.9 Hypothyroidism, unspecified
CPT/HCPCS: 36415; 80053; 80061; 83036; 84443; 85025

== ENCOUNTER → 2019-06-19 08:38 | Outpatient (CLI) | payer OTHER, SELFPAY ==
[2019-06-19 08:18] VITALS: BMI 35.5
[2019-06-19 12:13] LABS: Absolute Lymphocyte Count 2.54 X10^3/uL (0.83-4.51); Absolute Neutrophil Count 10.5 X10^3/uL (2.0-7.7); Basophil# 0.09 X10^3/uL; Basophil% 0.6 % (0-1); Eosinophil# 0.39 X10^3/uL; Eosinophils% 2.7 % (0-5); Hematocrit 36.3 % (37-47); Hemoglobin 10.5 g/dL (12.0-15.0); Lymphocyte # 2.54 X10^3/ul (4.0); Lymphocyte % 17.7 % (19-41); Mean Corp Hgb Conc 28.9 g/dL (32-36); Mean Corpuscular Volume 75.9 fL (81-99); Mean Platelet Vol. 10.9 fl (6.2-12.0); Monocyte# 0.75 X10^3/uL; Monocyte% 5.2 % (0-10); NRBC Flagged by Analyzer 0 % (0-5); Neutrophil # 10.47 X10^3/uL (2.7-7.7); Neutrophil % 73.2 % (47-70); Platelet Count 548 K/mm3 (150-450); RBC Distribution Width CV 19.5 % (11.6-14.6); RBC Distribution Width SD 52.9 fl (35.1-43.9); Red Blood Count 4.78 M/mm3 (4.2-5.4); White Blood Count 14.3 K/mm3 (4.4-11.0)
[2019-06-19 12:26] LABS: ALB/GLOB Ratio 0.8 RATIO (0.9-2.4); AST(SGOT) 8 U/L (15-37); Alanine Aminotransfer ALT/SGPT 19 U/L (13-56); Albumin, Serum 3.5 g/dL (3.2-5.0); Alkaline Phosphatase 83 U/L (45-117); Anion Gap 7 (5-15); BUN 10 mg/dL (7-18); BUN/Creat Ratio 11.8 RATIO (10-20); Chloride 105 mmol/L (98-107); Creatinine, Serum 0.85 mg/dL (0.55-1.02); EST Glomerular Filtration Rate 76 mL/min (>60); Est Glom Filt Rate - Afr Amer 92 mL/min (>60); Globulin 4.4 g/dL (2.2-4.2); Glucose 131 mg/dL (74-106); Potassium 3.8 mmol/L (3.5-5.1); Protein, Total 7.9 g/dL (6.4-8.2); Sodium Level 140 mmol/L (136-145)
[2019-06-21 08:57] LABS: Ferritin 6 ng/mL (8-252); Iron 19 ug/dL (50-170); Iron Binding Capacity,Total 355 ug/dL (250-450)
== END ==
LOC: BIMLAB 08:39
PROVIDERS: Family Provider Internal Medicine; PCP Internal Medicine; Visit Provider Internal Medicine
DX: D50.9 Iron deficiency anemia, unspecified (principal); E11.9 Type 2 diabetes mellitus without complications
CPT/HCPCS: 36415; 80053; 82728; 83540; 83550; 85025

== ENCOUNTER → 2019-08-02 13:05 | Outpatient (CLI) | payer OTHER, SELFPAY ==
[2019-08-02 10:42] VITALS: BMI 35.5
[2019-08-02 16:42] LABS: Chlamydia Trachomatis by PCR Negative (Negative); Neisserai gonorrhoeae by PCR Negative (Negative); Probe Check PASS; Sample Adequacy Control PASS; Specimen Processing Control PASS
[2019-08-05 17:42] LABS: HPV APTIMA, High Risk Negative (Negative)
== END ==
PROVIDERS: Family Provider Internal Medicine; PCP Internal Medicine; Referring Provider Nurse Practitioner Women's Health; Visit Provider Nurse Practitioner Women's Health
DX: Z12.4 Encounter for screening for malignant neoplasm of cervix (principal); N92.1 Excessive and frequent menstruation with irregular cycle
CPT/HCPCS: 87491; 87591; 87624; 88175; G0145

== ENCOUNTER → 2019-08-16 07:24 | Outpatient (CLI) | payer OTHER, SELFPAY ==
[2019-08-02 10:42] VITALS: BMI 35.5
--- NOTE | 2019-08-16 07:00 | US_ITS ---
STUDY: ULTRASOUND TRANSVAGINAL CLINICAL: Female, 48 years old. M Menorrhagia US - Pelvic, Tvag TECHNIQUE: Transabdominal and transvaginal evaluation. COMPARISON: None. FINDINGS: Normal uterine size measuring 7.4 x 4.7 x 4.3 cm in maximal craniocaudal dimension. There are no myometrial masses. Normal endometrial thickness measuring 6.9 mm. There are no endometrial masses, and there is no fluid in the endometrial cavity. Typically benign-appearing nabothian cervical cysts are present. Normal right ovary, measuring 2.4 x 2.1 x 1.8 cm. There are multiple follicles without a dominant cyst. Normal left ovary, measuring 2.9 x 3.1 x 1.9 cm. There are multiple follicles without a dominant cyst. There is no free fluid in the pelvis. Polycystic ovary disease: No. Regions of the urinary bladder excluded within the field of view demonstrate unremarkable morphology and echotexture. No wall thickening. US/Pelvic (Non ) IMPRESSION: No sonographically evident pathology. Electronically Signed: Tonny Vivas MD at 13:25 EST , Service support ,
--- NOTE | 2019-08-16 07:00 | BI_ITS ---
MAMMOGRAPHY - BILATERAL SCREENING 3-D TOMOSYNTHESIS REASON FOR EXAM: Female, 48 years old. NO FAM HX -- NO SX PERTINENT HISTORY: No significant family history. TECHNIQUE: 2-D mammograms and 3-D Tomosynthesis of the breast (s) were performed. CAD was performed. COMPARISON: July 07, 2018. FINDINGS: The breast composition is composed of scattered fibroglandular density. Scattered benign calcifications are seen. No dense spiculated masses or suspicious microcalcifications are identified. No architectural distortion is identified. There is no skin thickening or retraction. There has been no significant change since the prior study. BI/SCREEN MAMM (CAD) W/DOYLE BILAT IMPRESSION: No mammographic signs of malignancy. Routine yearly mammograms recommended. ASSESSMENT CATEGORY: BIRADS Category 2: Benign. A letter regarding these results will be sent to the patient by the facility within 30 days. FOLLOW UP RECOMMENDATION: Yearly follow up mammogram recommended. (A) Approximately 10% of breast cancers are not detected by mammography. A normal mammogram should not delay biopsy of a clinically suspicious abnormality. Electronically Signed: Tonny Vivas MD at 8:44 EST , Service support ,
--- NOTE | 2019-08-16 07:00 | US_ITS ---
STUDY: ULTRASOUND TRANSVAGINAL CLINICAL: Female, 48 years old. M Menorrhagia US - Pelvic, Tvag TECHNIQUE: Transabdominal and transvaginal evaluation. COMPARISON: None. FINDINGS: Normal uterine size measuring 7.4 x 4.7 x 4.3 cm in maximal craniocaudal dimension. There are no myometrial masses. Normal endometrial thickness measuring 6.9 mm. There are no endometrial masses, and there is no fluid in the endometrial cavity. Typically benign-appearing nabothian cervical cysts are present. Normal right ovary, measuring 2.4 x 2.1 x 1.8 cm. There are multiple follicles without a dominant cyst. Normal left ovary, measuring 2.9 x 3.1 x 1.9 cm. There are multiple follicles without a dominant cyst. There is no free fluid in the pelvis. Polycystic ovary disease: No. Regions of the urinary bladder excluded within the field of view demonstrate unremarkable morphology and echotexture. No wall thickening. US/Transvaginal Non- IMPRESSION: No sonographically evident pathology. Electronically Signed: Tonny Vivas MD at 13:25 EST , Service support ,
== END ==
LOC: OPBI 07:25
PROVIDERS: Family Provider Internal Medicine; PCP Internal Medicine; Referring Provider Nurse Practitioner Women's Health; Visit Provider Nurse Practitioner Women's Health
DX: Z12.31 Encounter for screening mammogram for malignant neoplasm of breast (principal); N92.1 Excessive and frequent menstruation with irregular cycle
CPT/HCPCS: 76830; 76856; 77063; 77067

== ENCOUNTER → 2019-08-31 07:03 | Outpatient (CLI) | payer OTHER, SELFPAY ==
[2019-08-21 11:58] VITALS: BMI 35.6
[2019-08-31 07:31] LABS: Hematocrit 35.3 % (37-47); Hemoglobin 10.2 g/dL (12.0-15.0); Mean Corp Hgb Conc 28.9 g/dL (32-36); Mean Corpuscular Hgb 21.3 pg (27.0-32.0); Mean Corpuscular Volume 73.7 fL (81-99); Platelet Count 485 K/mm3 (150-450); RBC Distribution Width CV 19.2 % (11.6-14.6); RBC Distribution Width SD 49.8 fl (35.1-43.9); Red Blood Count 4.79 M/mm3 (4.2-5.4); White Blood Count 12.2 K/mm3 (4.4-11.0)
[2019-08-31 08:09] LABS: Iron 20 ug/dL (50-170)
[2019-09-03 20:07] LABS: Endomysial Antibody IgA Negative (Negative)
[2019-09-04 16:17] LABS: Immunoglobulin A 212 mg/dL (87-352); t-Transglutaminase IgA <2 U/mL (0-3)
== END ==
LOC: LAB 07:05
PROVIDERS: PCP Internal Medicine; Referring Provider Internal Medicine Gastroenterology; Visit Provider Internal Medicine Gastroenterology
DX: D50.9 Iron deficiency anemia, unspecified (principal)
CPT/HCPCS: 36415; 82784; 83516; 83540; 85027; 86140; 86255

== ENCOUNTER → 2019-09-10 15:29 | Outpatient (CLI) | payer OTHER, SELFPAY ==
[2019-08-21 11:58] VITALS: BMI 35.6
--- NOTE | 2019-09-10 12:55 | COLBX_PTH ---
PATIENT: ANDREY THOMSON LOC: [facility] U#:[id number] AGE/SX: 54/F ROOM: RE09/10/[address]: Dr. Stuart Jacobo MD : 1970 BED: DIS: SPEC #: [id number] RECD: 09/10/19 15:00 STATUS: ROBERT FLOOD #: [id number] GRETA: 09/10/19 12:[address]: Stuart Jacobo DEPT: SURGICAL PATHOLOGY RECD BY: Jose Sinclair ENTERED: 09/11/19 09:53 SP TYPE: COLON BX OTHR DR: Dr. Cathy Wang MD [facility] Tissues: Ileum, NOS Procedures: Surgery Specimen Level IV HEADER OPERATION: Colonoscopy PRE-OP DIAGNOSIS: Iron deficiency anemia TISSUE SUBMITTED: Ileum, rule out Crohn's MICROSCOPIC DIAGNOSIS Ileum, biopsy: Fragments of small intestinal mucosa with prominent lymphoid aggregates, negative for active inflammation. See comment. NIRAV:anabell 09/12/19 COMMENT Correlation with clinical, endoscopic findings and appropriate follow up are necessary. MICROSCOPIC DESCRIPTION Slides are reviewed. GROSS DESCRIPTION Received in fixative is one container labeled with the patient's name and designated ileum. The specimen consists of multiple irregular fragments of light reese soft tissue that in aggregate measure 0.6 x 0.2 x 0.1 cm. The specimen is totally submitted in one cassette. / SJ:anabell 09/11/19 TC:5 CPT: 53713
== END ==
LOC: LABSPEC 15:33
PROVIDERS: PCP Internal Medicine; Referring Provider Internal Medicine Gastroenterology; Visit Provider Internal Medicine Gastroenterology
DX: D50.9 Iron deficiency anemia, unspecified (principal)
CPT/HCPCS: 88305

== ENCOUNTER → 2019-09-18 08:42 | Outpatient (CLI) | payer OTHER, SELFPAY ==
[2019-09-18 08:23] VITALS: BMI 35.6
[2019-09-18 12:51] LABS: Rheumatoid Factor < 10.0 IU/mL (<15)
[2019-09-19 20:44] LABS: ANTINUCLEAR ANTIBODIES DIRECT Negative (Negative)
[2019-09-20 16:01] LABS: CCP IgG Antibodies 10 units (0-19)
== END ==
LOC: BIMLAB 08:44
PROVIDERS: PCP Internal Medicine; Referring Provider Internal Medicine; Visit Provider Internal Medicine
DX: R79.82 Elevated C-reactive protein (CRP) (principal); M06.9 Rheumatoid arthritis, unspecified
CPT/HCPCS: 36415; 86038; 86200; 86225; 86235; 86431

== ENCOUNTER → 2019-09-21 14:25 | Outpatient (CLI) | payer OTHER, SELFPAY ==
[2019-09-18 08:23] VITALS: BMI 35.6
[2019-09-21 14:42] VITALS: BP 137/67; PULSE 89; RESP 16; TEMP 36.7; BMI 36.6
[2019-09-21 15:25] VITALS: BP 137/78; PULSE 75; RESP 16
== END ==
LOC: MEDOUTP 14:25
PROVIDERS: PCP Internal Medicine; Referring Provider Internal Medicine; Visit Provider Internal Medicine
DX: D50.9 Iron deficiency anemia, unspecified (principal)
CPT/HCPCS: 96365; J1756; J7050; A4216

== ENCOUNTER → 2019-09-24 14:25 | Outpatient (CLI) | payer OTHER, SELFPAY ==
[2019-09-18 08:23] VITALS: BMI 35.6
[2019-09-21 14:42] VITALS: BMI 36.6
[2019-09-24 14:40] VITALS: BP 124/76; PULSE 95; RESP 16; TEMP 37.1; O2SAT 98; BMI 36.6
== END ==
LOC: MEDOUTP 14:26
PROVIDERS: PCP Internal Medicine; Visit Provider Internal Medicine
DX: D50.9 Iron deficiency anemia, unspecified (principal)
CPT/HCPCS: 96365; J1756; J7050; A4216

== ENCOUNTER → 2019-09-26 14:24 | Outpatient (CLI) | payer OTHER, SELFPAY ==
[2019-09-18 08:23] VITALS: BMI 35.6
[2019-09-24 14:40] VITALS: BMI 36.6
[2019-09-26 14:28] VITALS: BP 131/75; PULSE 85; RESP 18; TEMP 36.6; O2SAT 98; BMI 36.6
[2019-09-26 15:28] VITALS: BP 116/53
== END ==
LOC: MEDOUTP 14:24
PROVIDERS: PCP Internal Medicine; Referring Provider Internal Medicine; Visit Provider Internal Medicine
DX: D50.9 Iron deficiency anemia, unspecified (principal)
CPT/HCPCS: 96365; J1756; J7050; A4216

== ENCOUNTER → 2019-09-28 14:28 | Outpatient (CLI) | payer OTHER, SELFPAY ==
[2019-09-18 08:23] VITALS: BMI 35.6
[2019-09-26 14:28] VITALS: BMI 36.6
[2019-09-28 14:45] VITALS: BP 106/56; PULSE 84; RESP 16; TEMP 36.6; O2SAT 96; BMI 36.4
== END ==
LOC: MEDOUTP 14:28
PROVIDERS: PCP Internal Medicine; Referring Provider Internal Medicine; Visit Provider Internal Medicine
DX: D50.9 Iron deficiency anemia, unspecified (principal)
CPT/HCPCS: 96365; J1756; J7050; A4216

== ENCOUNTER → 2019-10-01 14:32 | Outpatient (CLI) | payer OTHER, SELFPAY ==
[2019-09-18 08:23] VITALS: BMI 35.6
[2019-09-28 14:45] VITALS: BMI 36.4
[2019-10-01 14:39] VITALS: BP 123/75; PULSE 100; RESP 16; TEMP 36.6; O2SAT 97; BMI 36.4
== END ==
LOC: MEDOUTP 14:32
PROVIDERS: PCP Internal Medicine; Referring Provider Internal Medicine; Visit Provider Internal Medicine
DX: D50.9 Iron deficiency anemia, unspecified (principal)
CPT/HCPCS: 96365; J1756; J7050; A4216

== ENCOUNTER → 2019-10-10 10:07 | Outpatient (CLI) | payer OTHER, SELFPAY ==
[2019-10-01 14:39] VITALS: BMI 36.4
--- NOTE | 2019-10-10 10:11 | RAD_ITS ---
STUDY: X-RAY - RIGHT HAND REASON FOR EXAM: Female, 49 years old. inflammatory polyarthropathy TECHNIQUE: 3 view(s) of the hand. COMPARISON: None. FINDINGS: Normal radiocarpal articulation. Normal distal radioulnar joint. Normal visualized carpal bones. Normal carpal articulations Normal carpometacarpal articulation of the thumb. Normal second through fifth carpometacarpal joints. Normal metacarpi. 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 Normal proximal and distal phalanges of the thumb. Normal metacarpophalangeal joints of the second through fifth fingers. Normal proximal and distal interphalangeal joints of the second through fifth fingers. Normal phalanges of the second through fifth fingers. The soft tissue structures are unremarkable. RAD/Hand Min 3 Views IMPRESSION: Mild arthritic changes of the first metacarpophalangeal joint and first interphalangeal joint. Electronically Signed: Paul Soto MD at 17:09 EST , Service support ,
--- NOTE | 2019-10-10 10:11 | RAD_ITS ---
STUDY: X-RAY - LEFT HAND REASON FOR EXAM: Female, 49 years old. inflammatory polyarthropathy TECHNIQUE: 3 view(s) of the hand. COMPARISON: None. FINDINGS: Normal radiocarpal articulation. Normal distal radioulnar joint. Normal visualized carpal bones. Normal carpal articulations Normal carpometacarpal articulation of the thumb. Normal second through fifth carpometacarpal joints. Normal metacarpi. Normal metacarpophalangeal joint of the thumb. 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 Normal proximal and distal phalanges of the thumb. Normal metacarpophalangeal joints of the second through fifth fingers. There are mild arthritic changes of the second DIP joint. Normal phalanges of the second through fifth fingers. The soft tissue structures are unremarkable. RAD/Hand Min 3 Views IMPRESSION: Mild arthritic changes of the first interphalangeal joint and second DIP joint. Electronically Signed: Paul Soto MD at 17:10 EST , Service support ,
[2019-10-10 12:20] LABS: Absolute Lymphocyte Count 2.79 X10^3/uL (0.83-4.51); Absolute Neutrophil Count 8.3 X10^3/uL (2.0-7.7); Basophil# 0.09 X10^3/uL; Basophil% 0.7 % (0-1); Eosinophil# 0.26 X10^3/uL; Eosinophils% 2.1 % (0-5); Hematocrit 41.3 % (37-47); Hemoglobin 12.3 g/dL (12.0-15.0); Lymphocyte # 2.79 X10^3/ul (4.0); Lymphocyte % 22.8 % (19-41); Mean Corp Hgb Conc 29.8 g/dL (32-36); Mean Corpuscular Hgb 23.5 pg (27.0-32.0); Mean Platelet Vol. 11.1 fl (6.2-12.0); Monocyte# 0.74 X10^3/uL; Monocyte% 6.1 % (0-10); NRBC Flagged by Analyzer 0 % (0-5); Neutrophil # 8.28 X10^3/uL (2.7-7.7); Neutrophil % 67.8 % (47-70); POSITIVE MORPHOLOGY YES; Platelet Count 421 K/mm3 (150-450); RBC Distribution Width CV 25.8 % (11.6-14.6); RBC Distribution Width SD 69.9 fl (35.1-43.9); Red Blood Count 5.23 M/mm3 (4.2-5.4); White Blood Count 12.2 K/mm3 (4.4-11.0)
[2019-10-10 12:24] LABS: Color, Urine Yellow (Yellow); Glucose, Dipstick Normal (Normal); Ketone-Dipstick Negative (Negative); Leukocyte Esterase-Dipstick Negative /ul (Negative); Nitrite-Dipstick Negative (Negative); Occult Blood-Urine Negative /ul (Negative); Protein-Dipstick Negative (Negative); Urine Bilirubin Dipstick Negative (Negative); Urine Clarity Clear (Clear); Urine Urobilinogen Normal (Normal)
[2019-10-10 12:39] LABS: Differential Indicated SCAN CRITERIA MET
[2019-10-10 12:39] LABS: ALB/GLOB Ratio 0.8 RATIO (0.9-2.4); AST(SGOT) 13 U/L (15-37); Alanine Aminotransfer ALT/SGPT 33 U/L (13-56); Albumin, Serum 3.7 g/dL (3.2-5.0); Alkaline Phosphatase 87 U/L (45-117); Anion Gap 7 (5-15); BUN 14 mg/dL (7-18); BUN/Creat Ratio 15.6 RATIO (10-20); Calcium,Total 9.7 mg/dL (8.5-10.1); Chloride 104 mmol/L (98-107); EST Glomerular Filtration Rate 71 mL/min (>60); Est Glom Filt Rate - Afr Amer 86 mL/min (>60); Globulin 4.7 g/dL (2.2-4.2); Glucose 126 mg/dL (74-106); Potassium 3.9 mmol/L (3.5-5.1); Protein, Total 8.4 g/dL (6.4-8.2); Sodium Level 137 mmol/L (136-145)
[2019-10-10 12:44] LABS: Protein, Urine (Random) 6.1 mg/dL (<11.9); Protein:Creat Ratio 122 mg/g CRE (0-200)
[2019-10-10 13:09] LABS: Anisocytosis 2+; Platelet Estimate ADEQUATE (ADEQ); Polychromasia RARE
[2019-10-17 16:37] LABS: HLA B27 Negative (.)
== END ==
PROVIDERS: PCP Internal Medicine; Referring Provider Internal Medicine Rheumatology; Visit Provider Internal Medicine Rheumatology
DX: M06.4 Inflammatory polyarthropathy (principal); K21.9 Gastro-esophageal reflux disease without esophagitis; E03.9 Hypothyroidism, unspecified; I10 Essential (primary) hypertension; E11.9 Type 2 diabetes mellitus without complications; J45.909 Unspecified asthma, uncomplicated; G47.33 Obstructive sleep apnea (adult) (pediatric); E78.5 Hyperlipidemia, unspecified
CPT/HCPCS: 36415; 73130; 80053; 81002; 81374; 82570; 84156; 85025

== ENCOUNTER → 2019-12-20 15:29 | Outpatient (CLI) | payer OTHER, SELFPAY ==
[2019-12-19 09:26] VITALS: BMI 36.4
[2019-12-20 16:12] LABS: Anion Gap 7 (5-15); BUN 13 mg/dL (7-18); Calcium,Total 9.5 mg/dL (8.5-10.1); Chloride 103 mmol/L (98-107); Creatinine, Serum 0.86 mg/dL (0.55-1.02); EST Glomerular Filtration Rate 74 mL/min (>60); Est Glom Filt Rate - Afr Amer 90 mL/min (>60); Glucose 92 mg/dL (74-106); Magnesium 2.2 mg/dL (1.6-2.6); Potassium 3.6 mmol/L (3.5-5.1); Sodium Level 139 mmol/L (136-145)
[2019-12-20 16:20] LABS: Hemoglobin A1c 7.6 % (4.2-6.3)
== END ==
LOC: LABSPEC 15:32
PROVIDERS: PCP Internal Medicine; Referring Provider Internal Medicine; Visit Provider Internal Medicine
DX: I10 Essential (primary) hypertension (principal); R00.0 Tachycardia, unspecified; E11.9 Type 2 diabetes mellitus without complications
CPT/HCPCS: 80048; 83036; 83735

== ENCOUNTER → 2020-01-21 13:22 | Outpatient (CLI) | payer OTHER, SELFPAY ==
[2019-10-01 14:39] VITALS: BMI 36.4
[2019-12-19 09:26] VITALS: BMI 36.4
[2020-01-21 15:03] LABS: Absolute Lymphocyte Count 3.68 X10^3/uL (0.83-4.51); Absolute Neutrophil Count 9.1 X10^3/uL (2.0-7.7); Basophil% 0.7 % (0-1); Eosinophil# 0.36 X10^3/uL; Eosinophils% 2.5 % (0-5); Hematocrit 44.3 % (37-47); Hemoglobin 13.7 g/dL (12.0-15.0); Lymphocyte # 3.68 X10^3/ul (4.0); Lymphocyte % 25.9 % (19-41); Mean Corp Hgb Conc 30.9 g/dL (32-36); Mean Corpuscular Hgb 27.2 pg (27.0-32.0); Mean Corpuscular Volume 87.9 fL (81-99); Mean Platelet Vol. 11.4 fl (6.2-12.0); Monocyte# 0.84 X10^3/uL; Monocyte% 5.9 % (0-10); NRBC Flagged by Analyzer 0 % (0-5); Neutrophil # 9.14 X10^3/uL (2.7-7.7); Neutrophil % 64.4 % (47-70); Platelet Count 402 K/mm3 (150-450); RBC Distribution Width SD 52.6 fl (35.1-43.9); Red Blood Count 5.04 M/mm3 (4.2-5.4); White Blood Count 14.2 K/mm3 (4.4-11.0)
[2020-01-21 15:15] LABS: ALB/GLOB Ratio 0.8 RATIO (0.9-2.4); AST(SGOT) 14 U/L (15-37); Alanine Aminotransfer ALT/SGPT 29 U/L (13-56); Albumin, Serum 3.8 g/dL (3.2-5.0); Alkaline Phosphatase 81 U/L (45-117); Anion Gap 8 (5-15); BUN 12 mg/dL (7-18); Calcium,Total 9.9 mg/dL (8.5-10.1); Chloride 104 mmol/L (98-107); Creatinine, Serum 0.86 mg/dL (0.55-1.02); EST Glomerular Filtration Rate 75 mL/min (>60); Est Glom Filt Rate - Afr Amer 91 mL/min (>60); Globulin 4.5 g/dL (2.2-4.2); Glucose 83 mg/dL (74-106); Potassium 3.8 mmol/L (3.5-5.1); Protein, Total 8.3 g/dL (6.4-8.2); Sodium Level 140 mmol/L (136-145)
[2020-01-21 15:24] LABS: Microalbumin,Random Urine < 5.0 mg/L (NO RANGE EST.)
== END ==
LOC: MTLAB 13:24
PROVIDERS: PCP Internal Medicine; Referring Provider Internal Medicine Rheumatology; Visit Provider Internal Medicine Rheumatology
DX: D50.9 Iron deficiency anemia, unspecified (principal); E11.9 Type 2 diabetes mellitus without complications
CPT/HCPCS: 36415; 80053; 82043; 82570; 85025

== ENCOUNTER → 2020-04-17 11:42 | Outpatient (CLI) | payer OTHER, SELFPAY ==
[2020-03-06 17:27] VITALS: BMI 36.4
[2020-04-17 15:08] LABS: Absolute Lymphocyte Count 2.84 X10^3/uL (0.83-4.51); Absolute Neutrophil Count 8.3 X10^3/uL (2.0-7.7); Basophil# 0.09 X10^3/uL; Basophil% 0.7 % (0-1); Eosinophil# 0.47 X10^3/uL; Eosinophils% 3.7 % (0-5); Hematocrit 41.5 % (37-47); Hemoglobin 13.3 g/dL (12.0-15.0); Lymphocyte # 2.84 X10^3/ul (4.0); Lymphocyte % 22.6 % (19-41); Mean Corpuscular Hgb 27.8 pg (27.0-32.0); Mean Corpuscular Volume 86.6 fL (81-99); Mean Platelet Vol. 11.5 fl (6.2-12.0); Monocyte# 0.84 X10^3/uL; Monocyte% 6.7 % (0-10); NRBC Flagged by Analyzer 0 % (0-5); Neutrophil % 65.9 % (47-70); Platelet Count 394 K/mm3 (150-450); RBC Distribution Width CV 15.2 % (11.6-14.6); RBC Distribution Width SD 47.9 fl (35.1-43.9); Red Blood Count 4.79 M/mm3 (4.2-5.4); White Blood Count 12.6 K/mm3 (4.4-11.0)
[2020-04-17 15:24] LABS: ALB/GLOB Ratio 0.9 RATIO (0.9-2.4); AST(SGOT) 19 U/L (15-37); Alanine Aminotransfer ALT/SGPT 30 U/L (13-56); Albumin, Serum 3.7 g/dL (3.2-5.0); Alkaline Phosphatase 81 U/L (45-117); Anion Gap 5 (5-15); BUN 14 mg/dL (7-18); BUN/Creat Ratio 14.6 RATIO (10-20); Calcium,Total 9.2 mg/dL (8.5-10.1); Chloride 106 mmol/L (98-107); Creatinine, Serum 0.96 mg/dL (0.55-1.02); EST Glomerular Filtration Rate 66 mL/min (>60); Est Glom Filt Rate - Afr Amer 80 mL/min (>60); Glucose 120 mg/dL (74-106); Potassium 3.6 mmol/L (3.5-5.1); Protein, Total 7.7 g/dL (6.4-8.2); Sodium Level 140 mmol/L (136-145)
== END ==
PROVIDERS: PCP Internal Medicine; Referring Provider Internal Medicine Rheumatology; Visit Provider Internal Medicine Rheumatology
DX: M06.4 Inflammatory polyarthropathy (principal); K21.9 Gastro-esophageal reflux disease without esophagitis; E03.9 Hypothyroidism, unspecified; I10 Essential (primary) hypertension; E11.9 Type 2 diabetes mellitus without complications; J45.909 Unspecified asthma, uncomplicated; G47.33 Obstructive sleep apnea (adult) (pediatric); E78.5 Hyperlipidemia, unspecified
CPT/HCPCS: 36415; 80053; 85025

== ENCOUNTER → 2020-06-12 10:40 | Outpatient (CLI) | payer OTHER, SELFPAY ==
[2020-05-07 08:08] VITALS: BMI 36.4
== END ==
PROVIDERS: PCP Internal Medicine; Referring Provider Internal Medicine; Visit Provider Internal Medicine
DX: Z20.828 Contact with and (suspected) exposure to other viral communicable diseases (principal)
CPT/HCPCS: 87635; C9803; U0003

== ENCOUNTER → 2020-08-23 08:39 | Outpatient (CLI) | payer OTHER, SELFPAY ==
[2020-05-07 08:08] VITALS: BMI 36.4
--- NOTE | 2020-08-23 08:42 | BI_ITS ---
MAMMOGRAPHY - BILATERAL SCREENING REASON FOR EXAM: Female, 49 years old. Routine annual screening examination. PERTINENT HISTORY: Non-contributory. TECHNIQUE: Digital bilateral breast doyle (3D mammographic acquisition) in the CC and MLO projections. 2-D mediolateral oblique (MLO) and craniocaudad (CC) views of both breasts were obtained. CAD: Full Field Digital Mammography with Computer Added Detection was performed. COMPARISON: Comparison is made with prior study dated 08/16/2019 and 07/07/2018. FINDINGS: Breast Composition: The breasts are heterogeneously dense, which may obscure small masses. There are no dominant masses or suspicious calcifications. Stable benign-appearing bilateral axillary lymph nodes. No other significant abnormalities are identified. There has been no significant change since the prior study. BI/SCREEN MAMM (CAD) W/DOYLE BILAT IMPRESSION: Stable bilateral screening mammogram. Yearly follow-up mammogram recommended. (A) ASSESSMENT CATEGORY: BIRADS Category 2: Benign. A letter regarding these results will be sent to the patient by the facility within 30 days. Approximately 10% of breast cancers are not detected by mammography. A normal mammogram should not delay biopsy of a clinically suspicious abnormality. [id number] Electronically Signed: Jj Rivera, at 8:49 EST , Service support ,
== END ==
PROVIDERS: PCP Internal Medicine; Referring Provider Internal Medicine; Visit Provider Internal Medicine
DX: Z12.31 Encounter for screening mammogram for malignant neoplasm of breast (principal)
CPT/HCPCS: 77063; 77067

== ENCOUNTER → 2020-09-02 09:03 | Outpatient (CLI) | payer OTHER, SELFPAY ==
[2020-09-02 13:09] LABS: Cholesterol 129 mg/dL (200); High Density Lipoprotein 47 mg/dL; Thyroid Stim Hormone (TSH) 1.28 uIU/mL (0.358-3.74); Triglycerides 128 mg/dL; Very Low Density Lipoprotein 26 mg/dL (5-40)
[2020-09-02 13:25] LABS: Microalbumin,Random Urine 12.3 mg/L (NO RANGE EST.); Microalbumin:Creatinine Ratio 5.9 mg/g CRE (<30 mg/g CRE)
== END ==
PROVIDERS: PCP Internal Medicine; Referring Provider Internal Medicine; Visit Provider Internal Medicine
DX: E03.9 Hypothyroidism, unspecified (principal); E11.9 Type 2 diabetes mellitus without complications; E78.5 Hyperlipidemia, unspecified
CPT/HCPCS: 36415; 80061; 82043; 82570; 84443

== ENCOUNTER → 2020-10-16 16:13 | Outpatient (CLI) | payer OTHER, SELFPAY ==
[2020-10-07 08:36] VITALS: BMI 38.4
[2020-10-16 17:31] LABS: Absolute Lymphocyte Count 3.48 X10^3/uL (0.83-4.51); Absolute Neutrophil Count 10.8 X10^3/uL (2.0-7.7); Basophil# 0.09 X10^3/uL; Basophil% 0.6 % (0-1); Eosinophil# 0.32 X10^3/uL; Hemoglobin 12.9 g/dL (12.0-15.0); Lymphocyte # 3.48 X10^3/ul (4.0); Lymphocyte % 22.1 % (19-41); Mean Corpuscular Volume 86.5 fL (81-99); Mean Platelet Vol. 11.3 fl (6.2-12.0); Monocyte# 0.96 X10^3/uL; Monocyte% 6.1 % (0-10); NRBC Flagged by Analyzer 0 % (0-5); Neutrophil # 10.81 X10^3/uL (2.7-7.7); Neutrophil % 68.8 % (47-70); Platelet Count 438 K/mm3 (150-450); RBC Distribution Width SD 50.8 fl (35.1-43.9); Red Blood Count 4.97 M/mm3 (4.2-5.4); White Blood Count 15.7 K/mm3 (4.4-11.0)
[2020-10-16 17:53] LABS: ALB/GLOB Ratio 0.9 RATIO (0.9-2.4); AST(SGOT) 15 U/L (15-37); Alanine Aminotransfer ALT/SGPT 27 U/L (13-56); Albumin, Serum 3.8 g/dL (3.2-5.0); Alkaline Phosphatase 83 U/L (45-117); Anion Gap 9 (5-15); BUN 14 mg/dL (7-18); BUN/Creat Ratio 13.3 RATIO (10-20); Calcium,Total 9.4 mg/dL (8.5-10.1); Chloride 101 mmol/L (98-107); Creatinine, Serum 1.05 mg/dL (0.55-1.02); EST Glomerular Filtration Rate 59 mL/min (>60); Est Glom Filt Rate - Afr Amer 72 mL/min (>60); Globulin 4.1 g/dL (2.2-4.2); Glucose 135 mg/dL (74-106); Potassium 3.5 mmol/L (3.5-5.1); Protein, Total 7.9 g/dL (6.4-8.2); Sodium Level 139 mmol/L (136-145)
== END ==
PROVIDERS: PCP Internal Medicine; Referring Provider Internal Medicine Rheumatology; Visit Provider Internal Medicine Rheumatology
DX: M06.4 Inflammatory polyarthropathy (principal); K21.9 Gastro-esophageal reflux disease without esophagitis; E03.9 Hypothyroidism, unspecified; I10 Essential (primary) hypertension; E11.9 Type 2 diabetes mellitus without complications; J45.909 Unspecified asthma, uncomplicated; G47.33 Obstructive sleep apnea (adult) (pediatric); E78.5 Hyperlipidemia, unspecified
CPT/HCPCS: 36415; 80053; 85025

== ENCOUNTER → 2021-01-17 08:38 | Outpatient (CLI) | payer OTHER, SELFPAY ==
[2020-11-12 17:02] VITALS: BMI 37.3
[2021-01-17 09:01] LABS: Absolute Lymphocyte Count 2.29 X10^3/uL (0.83-4.51); Absolute Neutrophil Count 7.5 X10^3/uL (2.0-7.7); Basophil# 0.09 X10^3/uL; Basophil% 0.8 % (0-1); Eosinophil# 0.34 X10^3/uL; Eosinophils% 3.1 % (0-5); Hematocrit 40.6 % (37-47); Hemoglobin 12.3 g/dL (12.0-15.0); Lymphocyte # 2.29 X10^3/ul (0.83-4.51); Lymphocyte % 20.7 % (19-41); Mean Corp Hgb Conc 30.3 g/dL (32-36); Mean Corpuscular Hgb 25.2 pg (27.0-32.0); Mean Corpuscular Volume 83.2 fL (81-99); Mean Platelet Vol. 10.3 fl (6.2-12.0); Monocyte# 0.77 X10^3/uL; Monocyte% 6.9 % (0-10); NRBC Flagged by Analyzer 0 % (0-5); Neutrophil # 7.52 X10^3/uL (2.7-7.7); Neutrophil % 67.9 % (47-70); Platelet Count 439 K/mm3 (150-450); RBC Distribution Width CV 15.9 % (11.6-14.6); RBC Distribution Width SD 48.3 fl (35.1-43.9); Red Blood Count 4.88 M/mm3 (4.2-5.4); White Blood Count 11.1 K/mm3 (4.4-11.0)
[2021-01-17 09:43] LABS: ALB/GLOB Ratio 0.9 RATIO (0.9-2.4); AST(SGOT) 12 U/L (15-37); Alanine Aminotransfer ALT/SGPT 18 U/L (13-56); Albumin, Serum 3.5 g/dL (3.2-5.0); Alkaline Phosphatase 76 U/L (45-117); Anion Gap 7 (5-15); BUN 11 mg/dL (7-18); BUN/Creat Ratio 10.5 RATIO (10-20); Chloride 106 mmol/L (98-107); Creatinine, Serum 1.05 mg/dL (0.55-1.02); EST Glomerular Filtration Rate 59 mL/min (>60); Est Glom Filt Rate - Afr Amer 72 mL/min (>60); Globulin 4.1 g/dL (2.2-4.2); Glucose 153 mg/dL (74-106); Potassium 3.7 mmol/L (3.5-5.1); Protein, Total 7.6 g/dL (6.4-8.2); Sodium Level 140 mmol/L (136-145)
== END ==
LOC: LAB 08:40
PROVIDERS: PCP Internal Medicine; Referring Provider Internal Medicine Rheumatology; Visit Provider Internal Medicine Rheumatology
DX: M06.4 Inflammatory polyarthropathy (principal); K21.9 Gastro-esophageal reflux disease without esophagitis; E03.9 Hypothyroidism, unspecified; I10 Essential (primary) hypertension; E11.9 Type 2 diabetes mellitus without complications; J45.909 Unspecified asthma, uncomplicated; G47.33 Obstructive sleep apnea (adult) (pediatric); E78.5 Hyperlipidemia, unspecified
CPT/HCPCS: 36415; 80053; 85025

== ENCOUNTER → 2021-06-19 10:37 | Outpatient (CLI) | payer OTHER, SELFPAY | PROVIDERS: PCP Internal Medicine; Referring Provider Physician Assistant; Visit Provider Physician Assistant | DX: R19.7 Diarrhea, unspecified (principal); R11.2 Nausea with vomiting, unspecified | CPT/HCPCS: 87635; U0005; U0003 ==

== ENCOUNTER 2021-09-14 07:30 | Outpatient (CLI) | payer OTHER, SELFPAY ==
--- NOTE | 2021-09-14 07:32 | BI_ITS ---
MAMMOGRAPHY - BILATERAL SCREENING REASON FOR EXAM: Female, 51 years old. Routine annual screening examination. PERTINENT HISTORY: Non-contributory. TECHNIQUE: Digital bilateral breast doyle (3D mammographic acquisition) in the CC and MLO projections. 2-D mediolateral oblique (MLO) and craniocaudad (CC) views of both breasts were obtained. CAD: Full Field Digital Mammography with Computer Added Detection was performed. COMPARISON: Comparison is made with prior study dated 08/23/2020 and 08/16/2019. FINDINGS: Breast Composition: The breasts are heterogeneously dense, which may obscure small masses. There are no dominant masses or suspicious calcifications. Stable small benign-appearing bilateral axillary lymph nodes. No other significant abnormalities are identified. There has been no significant change since the prior study. BI/SCRN MAMM (CAD)W/DOYLE BILAT IMPRESSION: Stable bilateral screening mammogram. Yearly follow-up mammogram recommended. (A) ASSESSMENT CATEGORY: BIRADS Category 2: Benign. A letter regarding these results will be sent to the patient by the facility within 30 days. Approximately 10% of breast cancers are not detected by mammography. A normal mammogram should not delay biopsy of a clinically suspicious abnormality. [id number] Electronically Signed: Jj Rivera MD at 8:12 EST ,
== END 2021-09-14 23:59 | disposition short-term general hospital (02) ==
PROVIDERS: PCP Internal Medicine; Visit Provider Physician Assistant
DX: Z12.31 Encounter for screening mammogram for malignant neoplasm of breast (principal)
CPT/HCPCS: 77063; 77067

== ENCOUNTER → 2022-01-27 | Outpatient (CLI) | payer OTHER, SELFPAY ==
[2022-01-27 08:57] LABS: Red Blood Cells-Urine 0 SEEN /hpf (0-5)
[2022-01-27 12:34] LABS: Color, Urine Yellow (Yellow); Glucose, Dipstick 1000 mg/dl (Normal); Ketone-Dipstick Negative (Negative); Leukocyte Esterase-Dipstick Negative /ul (Negative); Nitrite-Dipstick Negative (Negative); Occult Blood-Urine Negative /ul (Negative); Protein-Dipstick Negative (Negative); Specific Gravity, Urine 1.015 (1.002-1.030); Urine Bilirubin Dipstick Negative (Negative); Urine Clarity Sl. Cloudy (Clear); Urine Urobilinogen Normal (Normal)
[2022-01-27 13:06] LABS: White Blood Cells 0-5 SEEN /hpf (0-5)
[2022-01-27 13:07] LABS: Bacteria RARE /hpf (None Seen); Mucous, Urine RARE /hpf (<or=2+); Squamous Epithelial Cells - UA 0-5 SEEN /hpf (5-10)
== END | disposition home or self-care (01) ==
LOC: LABSPEC 08:55
PROVIDERS: PCP Internal Medicine; Referring Provider Physician Assistant; Visit Provider Physician Assistant
DX: R39.9 Unspecified symptoms and signs involving the genitourinary system (principal)
CPT/HCPCS: 81001; 87077; 87086; 87088; 87186

== ENCOUNTER → 2022-01-29 | Outpatient (CLI) | payer OTHER, SELFPAY ==
[2022-01-29 17:39] LABS: Absolute Lymphocyte Count 3.43 X10^3/uL (0.83-4.51); Absolute Neutrophil Count 7.2 X10^3/uL (2.0-7.7); Basophil# 0.12 X10^3/uL; Eosinophil# 0.62 X10^3/uL; Eosinophils% 4.9 % (0-5); Hemoglobin 12.7 g/dL (12.0-15.0); Lymphocyte # 3.43 X10^3/ul (0.83-4.51); Lymphocyte % 27.3 % (19-41); Mean Corpuscular Hgb 24.7 pg (27.0-32.0); Mean Corpuscular Volume 79.6 fL (81-99); Mean Platelet Vol. 10.9 fl (6.2-12.0); Monocyte# 1.12 X10^3/uL; Monocyte% 8.9 % (0-10); NRBC Flagged by Analyzer 0 % (0-5); Neutrophil # 7.23 X10^3/uL (2.7-7.7); Neutrophil % 57.5 % (47-70); Platelet Count 416 K/mm3 (150-450); RBC Distribution Width CV 17.4 % (11.6-14.6); RBC Distribution Width SD 50.3 fl (35.1-43.9); Red Blood Count 5.15 M/mm3 (4.2-5.4); White Blood Count 12.6 K/mm3 (4.4-11.0)
[2022-01-29 18:13] LABS: AST(SGOT) 17 U/L (15-37); Alanine Aminotransfer ALT/SGPT 30 U/L (13-56); Albumin, Serum 3.9 g/dL (3.2-5.0); Alkaline Phosphatase 80 U/L (45-117); Anion Gap 8 (5-15); BUN 12 mg/dL (7-18); BUN/Creat Ratio 13.7 RATIO (10-20); Calcium,Total 9.4 mg/dL (8.5-10.1); Chloride 105 mmol/L (98-107); Creatinine, Serum 0.88 mg/dL (0.55-1.02); EST Glomerular Filtration Rate 72 mL/min (>60); Est Glom Filt Rate - Afr Amer 88 mL/min (>60); Globulin 3.9 g/dL (2.2-4.2); Glucose 78 mg/dL (74-106); Potassium 3.4 mmol/L (3.5-5.1); Protein, Total 7.8 g/dL (6.4-8.2); Sodium Level 138 mmol/L (136-145)
== END | disposition home or self-care (01) ==
LOC: MTLAB 15:23
PROVIDERS: PCP Internal Medicine; Referring Provider Internal Medicine Rheumatology; Visit Provider Internal Medicine Rheumatology
DX: M06.4 Inflammatory polyarthropathy (principal); E11.9 Type 2 diabetes mellitus without complications; K21.9 Gastro-esophageal reflux disease without esophagitis; E03.9 Hypothyroidism, unspecified; I10 Essential (primary) hypertension; J45.909 Unspecified asthma, uncomplicated; G47.33 Obstructive sleep apnea (adult) (pediatric); E78.5 Hyperlipidemia, unspecified
CPT/HCPCS: 36415; 80053; 85025

== ENCOUNTER → 2022-02-19 | Outpatient (CLI) | payer OTHER, SELFPAY ==
[2022-02-19 15:12] LABS: Erythrocyte Sedimentation Rate 24 mm/hr (0-30)
[2022-02-19 15:23] LABS: CPK Total, Creatine Kinase 91 U/L (26-192)
[2022-02-22 19:48] LABS: ANTINUCLEAR ANTIBODIES DIRECT Negative (Negative)
== END | disposition home or self-care (01) ==
LOC: BIMLAB 13:49
PROVIDERS: PCP Internal Medicine; Referring Provider Internal Medicine; Visit Provider Internal Medicine
DX: M62.81 Muscle weakness (generalized) (principal)
CPT/HCPCS: 36415; 82550; 85652; 86038; 86140; 86225; 86235

== ENCOUNTER → 2022-07-19 | Outpatient (CLI) | payer OTHER, SELFPAY ==
[2022-07-19 07:24] LABS: Absolute Lymphocyte Count 2.78 X10^3/uL (0.83-4.51); Absolute Neutrophil Count 7.6 X10^3/uL (2.0-7.7); Basophil# 0.11 X10^3/uL; Basophil% 0.9 % (0-1); Hematocrit 41.1 % (37-47); Hemoglobin 12.2 g/dL (12.0-15.0); Lymphocyte # 2.78 X10^3/ul (0.83-4.51); Lymphocyte % 23.3 % (19-41); Mean Corp Hgb Conc 29.7 g/dL (32-36); Mean Corpuscular Hgb 23.4 pg (27.0-32.0); Mean Corpuscular Volume 78.7 fL (81-99); Mean Platelet Vol. 11.1 fl (6.2-12.0); Monocyte# 0.84 X10^3/uL; NRBC Flagged by Analyzer 0 % (0-5); Neutrophil # 7.56 X10^3/uL (2.7-7.7); Neutrophil % 63.4 % (47-70); Platelet Count 465 K/mm3 (150-450); RBC Distribution Width CV 19.2 % (11.6-14.6); RBC Distribution Width SD 53.1 fl (35.1-43.9); Red Blood Count 5.22 M/mm3 (4.2-5.4); White Blood Count 11.9 K/mm3 (4.4-11.0)
[2022-07-19 07:48] LABS: ALB/GLOB Ratio 0.9 RATIO (0.9-2.4); AST(SGOT) 18 U/L (15-37); Alanine Aminotransfer ALT/SGPT 37 U/L (13-56); Albumin, Serum 3.4 g/dL (3.2-5.0); Alkaline Phosphatase 86 U/L (45-117); Anion Gap 7 (5-15); BUN 13 mg/dL (7-18); BUN/Creat Ratio 13.3 RATIO (10-20); Chloride 103 mmol/L (98-107); Creatinine, Serum 0.97 mg/dL (0.55-1.02); EST Glomerular Filtration Rate 64 mL/min (>60); Est Glom Filt Rate - Afr Amer 78 mL/min (>60); Globulin 3.9 g/dL (2.2-4.2); Glucose 183 mg/dL (74-106); Potassium 3.9 mmol/L (3.5-5.1); Protein, Total 7.3 g/dL (6.4-8.2); Sodium Level 138 mmol/L (136-145)
== END | disposition home or self-care (01) ==
LOC: LAB 06:24
PROVIDERS: PCP Internal Medicine; Referring Provider Internal Medicine Rheumatology; Visit Provider Internal Medicine Rheumatology
DX: M06.4 Inflammatory polyarthropathy (principal); E11.9 Type 2 diabetes mellitus without complications; K21.9 Gastro-esophageal reflux disease without esophagitis; E03.9 Hypothyroidism, unspecified; I10 Essential (primary) hypertension; J45.909 Unspecified asthma, uncomplicated; G47.33 Obstructive sleep apnea (adult) (pediatric); E78.5 Hyperlipidemia, unspecified
CPT/HCPCS: 36415; 80053; 85025

== ENCOUNTER → 2022-08-25 | Outpatient (CLI) | payer OTHER, SELFPAY | END | disposition home or self-care (01) | LOC: LABSPEC 09:25 | PROVIDERS: PCP Internal Medicine; Referring Provider Physician Assistant; Visit Provider Physician Assistant | DX: R05.9 Cough, unspecified (principal) | CPT/HCPCS: 87635; U0003; U0005 ==

== ENCOUNTER → 2022-10-13 | Outpatient (CLI) | payer OTHER, SELFPAY ==
--- NOTE | 2022-10-13 07:17 | BI_ITS ---
MAMMOGRAPHY - BILATERAL SCREENING REASON FOR EXAM: Female, 52 years old. Routine annual screening examination. PERTINENT HISTORY: Non-contributory. TECHNIQUE: Digital bilateral breast doyle (3D mammographic acquisition) in the CC and MLO projections. 2-D mediolateral oblique (MLO) and craniocaudad (CC) views of both breasts were obtained. CAD: Full Field Digital Mammography with Computer Added Detection was performed. COMPARISON: Comparison is made with prior study dated 09/14/2021 and 08/23/2020. FINDINGS: Breast Composition: The breasts are heterogeneously dense, which may obscure small masses. There are no dominant masses or suspicious calcifications. Stable small benign-appearing bilateral axillary lymph nodes. No other significant abnormalities are identified. There has been no significant change since the prior study. BI/SCRN MAMM (CAD)W/DOYLE BILAT IMPRESSION: Stable bilateral screening mammogram. Yearly follow-up mammogram recommended. (A) ASSESSMENT CATEGORY: BIRADS Category 2: Benign. A letter regarding these results will be sent to the patient by the facility within 30 days. Approximately 10% of breast cancers are not detected by mammography. A normal mammogram should not delay biopsy of a clinically suspicious abnormality. [id number] Electronically Signed: Jj Rivera MD at 10:16 EST ,
== END | disposition home or self-care (01) ==
LOC: OPBI 07:15
PROVIDERS: PCP Internal Medicine; Visit Provider Internal Medicine
DX: Z12.31 Encounter for screening mammogram for malignant neoplasm of breast (principal)
CPT/HCPCS: 77063; 77067

== ENCOUNTER → 2023-03-25 | Outpatient (CLI) | payer OTHER, SELFPAY ==
[2023-03-25 16:16] LABS: Absolute Lymphocyte Count 2.58 X10^3/uL (0.83-4.51); Absolute Neutrophil Count 8.3 X10^3/uL (2.0-7.7); Basophil% 0.8 % (0-1); Eosinophil# 0.38 X10^3/uL; Eosinophils% 3.1 % (0-5); Hematocrit 38.9 % (37-47); Hemoglobin 11.7 g/dL (12.0-15.0); Lymphocyte # 2.58 X10^3/ul (0.83-4.51); Lymphocyte % 21.3 % (19-41); Mean Corp Hgb Conc 30.1 g/dL (32-36); Mean Corpuscular Hgb 23.6 pg (27.0-32.0); Mean Corpuscular Volume 78.6 fL (81-99); Mean Platelet Vol. 10.8 fl (6.2-12.0); Monocyte# 0.77 X10^3/uL; Monocyte% 6.3 % (0-10); NRBC Flagged by Analyzer 0 % (0-5); Neutrophil # 8.27 X10^3/uL (2.7-7.7); Neutrophil % 68.2 % (47-70); Platelet Count 432 K/mm3 (150-450); RBC Distribution Width CV 18.3 % (11.6-14.6); RBC Distribution Width SD 51.6 fl (35.1-43.9); Red Blood Count 4.95 M/mm3 (4.2-5.4); White Blood Count 12.1 K/mm3 (4.4-11.0)
[2023-03-25 17:02] LABS: Microalbumin,Random Urine < 5.0 mg/L (NO RANGE EST.)
[2023-03-25 17:02] LABS: ALB/GLOB Ratio 0.8 RATIO (0.9-2.4); AST(SGOT) 14 U/L (15-37); Alanine Aminotransfer ALT/SGPT 35 U/L (13-56); Albumin, Serum 3.4 g/dL (3.2-5.0); Alkaline Phosphatase 102 U/L (45-117); Anion Gap 8 (5-15); BUN 13 mg/dL (7-18); Calcium,Total 9.6 mg/dL (8.5-10.1); Chloride 104 mmol/L (98-107); Cholesterol 155 mg/dL (200); Creatinine, Serum 1.08 mg/dL (0.55-1.02); EST Glomerular Filtration Rate 57 mL/min (>60); Est Glom Filt Rate - Afr Amer 69 mL/min (>60); Ferritin 5 ng/mL (8-252); Globulin 4.1 g/dL (2.2-4.2); Glucose 206 mg/dL (74-106); High Density Lipoprotein 51 mg/dL; Iron 21 ug/dL (50-170); Iron Binding Capacity,Total 369 ug/dL (250-450); Potassium 3.4 mmol/L (3.5-5.1); Protein, Total 7.5 g/dL (6.4-8.2); Sodium Level 138 mmol/L (136-145); Thyroid Stim Hormone (TSH) 1.49 uIU/mL (0.358-3.74); Triglycerides 177 mg/dL; Very Low Density Lipoprotein 35 mg/dL (5-40)
== END | disposition home or self-care (01) ==
LOC: BIMLAB 15:30
PROVIDERS: PCP Internal Medicine; Referring Provider Internal Medicine; Visit Provider Internal Medicine
DX: E11.9 Type 2 diabetes mellitus without complications (principal); R71.8 Other abnormality of red blood cells; I10 Essential (primary) hypertension; E78.5 Hyperlipidemia, unspecified; E03.9 Hypothyroidism, unspecified
CPT/HCPCS: 36415; 80053; 80061; 82043; 82570; 82728; 83540; 83550; 84443; 85025

== ENCOUNTER → 2023-10-21 | Outpatient (CLI) | payer OTHER, SELFPAY ==
--- NOTE | 2023-10-21 07:38 | BI_ITS ---
MAMMOGRAPHY - BILATERAL SCREENING 3-D TOMOSYNTHESIS REASON FOR EXAM: Female, 53 years old. Breast cancer screening PERTINENT HISTORY: No significant family history. TECHNIQUE: 2-D mammograms and 3-D Tomosynthesis of the breast (s) were performed. CAD was performed. COMPARISON: 10/13/2022 FINDINGS: The breast composition is heterogeneously dense that can obscure small breast masses. Scattered benign calcifications are seen. No dense spiculated masses or suspicious microcalcifications are identified. No architectural distortion is identified. There is no skin thickening or retraction. There has been no significant change since the prior study. BI/SCRN MAMM (CAD)W/DOYLE BILAT IMPRESSION: No mammographic signs of malignancy. Routine yearly mammograms recommended. ASSESSMENT CATEGORY: BIRADS Category 1: Negative. A letter regarding these results will be sent to the patient by the facility within 30 days. FOLLOW UP RECOMMENDATION: Yearly follow up mammogram recommended. (A) Approximately 10% of breast cancers are not detected by mammography. A normal mammogram should not delay biopsy of a clinically suspicious abnormality. Electronically Signed: Alex Schaefer MD at 13:27 EST ,
--- OUTSIDE RECORDS SUMMARY | 2023-10-21 07:39 | XMS RPT_ITS | CCD ---
Author Name Unknown Address [id number] [place] [address] Organization [facility] Care Team Providers Care Forensic Specialist Name Role Phone NAZHA, AZIZ Unavailable Unavailable NAZHA, AZIZ Unavailable Unavailable NAZHA, AZIZ Unavailable Unavailable NAZHA, AZIZ Unavailable Unavailable NAZHA, AZIZ Unavailable Unavailable Allergies Allergy Classification Reported Allergen(s) Allergy Type Date of Onset Reaction(s) Facility (1 source) Penicillins; Translations: [PENICILLINS] Propensity to adverse reactions to drug (disorder) 4 [facility] Repository (1 source) Sulfonamides (Antibiotic); Translations: [SULFA (SULFONAMIDE ANTIBIOTICS)] Propensity to adverse reactions to drug (disorder) 4 [facility] Repository Problems Problem Classification Problem Date Documented Da te Episodic/Chronic Diseases of white blood cells (1 source) Elevated white blood cell count, unspecified; Translations: [Elevated white blood cell count, unspecified] Onset: 02-10-2017 Chronic Results Test Name Value Interpretation Reference Range Facil ity Encounters Encounter Date Encounter Type Care Provider Facility Start: 02-24-2017 End: 03-17-2017 Ambulatory AZIZ NAJudi[facility] Start: 02-10-2017 End: 02-10-2017 [facility] Purpose Family History No Family History Records Found Advance Directives No Advanced Directives Records Found Additional Source Comments INFORMATION SOURCE (unrecogn ized section and content) FOR RECORDS PERTAINING TO PATIENTS WHO ARE OR HAVE BEEN ENROLLED IN A CHEMICAL DEPENDENCY/SUBSTANCEABUSE PROGRAM, SOME INFORMATION MAY BE OMITTED. This clinical summary was aggregated from multiple sources. Caution should be exercised in using it in the provision of clinical care. This summary normalizes information from multiple sources, and as a consequence, information in this document may materially change the coding, format and clinical context of patient data. In addition, data may be omitted in some cases. CLINICAL DECISIONS SHOULD BE BASED ON THE PRIMARY CLINICAL RECORDS. [facility] [employer] [facility]. provides no warranty or guarantee of the accuracy or completeness of information in this document.
== END | disposition home or self-care (01) ==
LOC: OPBI 07:36
PROVIDERS: PCP Internal Medicine; Referring Provider Internal Medicine; Visit Provider Internal Medicine
DX: Z12.31 Encounter for screening mammogram for malignant neoplasm of breast (principal)
CPT/HCPCS: 77063; 77067

== ENCOUNTER → 2024-04-09 | Outpatient (CLI) | payer OTHER, SELFPAY ==
[2024-04-09 12:31] LABS: PTHIN 32.2 pg/mL (18.4-80.1)
[2024-04-09 12:34] LABS: Vitamin D,25 Hydroxy 53.6 ng/mL
[2024-04-09 12:57] LABS: ALB/GLOB Ratio 0.8 RATIO (0.9-2.4); AST(SGOT) 24 U/L (15-37); Alanine Aminotransfer ALT/SGPT 33 U/L (13-56); Albumin, Serum 3.4 g/dL (3.2-5.0); Alkaline Phosphatase 92 U/L (45-117); Anion Gap 10 (5-15); BUN 11 mg/dL (7-18); BUN/Creat Ratio 13.2 RATIO (10-20); Calcium,Total 9.8 mg/dL (8.5-10.1); Chloride 106 mmol/L (98-107); Cholesterol 170 mg/dL (200); Creatinine, Serum 0.83 mg/dL (0.55-1.02); EST Glomerular Filtration Rate 76 mL/min (>60); Est Glom Filt Rate - Afr Amer 92 mL/min (>60); Glucose 146 mg/dL (74-106); High Density Lipoprotein 40 mg/dL; Potassium 3.3 mmol/L (3.5-5.1); Protein, Total 7.4 g/dL (6.4-8.2); Sodium Level 140 mmol/L (136-145); Triglycerides 232 mg/dL; Very Low Density Lipoprotein 46 mg/dL (5-40)
== END | disposition home or self-care (01) ==
LOC: BIMLAB 08:49
PROVIDERS: Nurse Practitioner Family; PCP Internal Medicine; Referring Provider Internal Medicine; Visit Provider Internal Medicine
DX: E78.5 Hyperlipidemia, unspecified (principal); E11.9 Type 2 diabetes mellitus without complications; E83.52 Hypercalcemia; E03.9 Hypothyroidism, unspecified
CPT/HCPCS: 36415; 80053; 80061; 82306; 83970

== ENCOUNTER 2024-04-19 18:00 | Outpatient (RCR) | payer OTHER, SELFPAY ==
--- NOTE | 2024-03-13 16:34 | HP.PTEVAL ---
Patient's Visit Information Visit Information Visit Information: ANDREY THOMSON is a 53 year old F referred to Physical Therapy by ANIL Clarke with a diagnosis of BPPV. Date of Evaluation: 03/13/24 Physical Therapist: Feroz Toro, DPT, OCS, CSCS Visit Plan Frequency: 1-2x /Week Duration: 2-4 Weeks Plan: 1-2x/week for 2-4 weeks as needed for positional treatments and return to function. Florinda guerra today performed adn then - HD.Oculomotor as needed Subjective Subjective: I got vertigo in January having spells starting in the am and then at work. It happened looking up at work and got dizzy for several minutes. Has been to doctors who told her it was crystals and was given meclizine for dizzyness. Also was treated for sinus infection. These helped but they make her tired and cannot work with it. Last dizzyness was last week, happens when she gets up and toss and turns. Last couple days have been good. Just mild at times sitting at desk. Employed [employer], desk work and records keeping, avoids the physical lifting boxes. Hobbies: gym, [employer] but avoids lately(maybe due to this.) Gardens and has been out there. Basic ADLs: all I. 90% better at this point. Objective Objective: Walks I, trasnfers I, steps reciprocal with one rail. cervical aROM hesitant but WFL adn without pain. UE AROM WFL and without pain. Sensation UE WNL to gross light touch. - L hallpike michele + R hallpike for 5 sec up tosional nystamgus and dizzyness. Treated with Florinda guerra adn then - HD test. Balance/Special Test Scores Functional Gait Assessment Score: 27 % Disability: 10.0000 CATSIB Score (Max score 120 seconds): 95 Dizziness Score: 50 Goals Goal 1:: abolish dizzyness x 1 week Goal Time Frame: 2-4 Weeks Goal 2:: Pt feel 100% back to normal in activities including gym workout if desired Goal Time Frame: 4-6 Weeks Goal 3:: DHI score 10 or less Goal Time Frame: 4-6 Weeks Rehabilitation Potential Physical Therapy Diagnosis: BPPV dizzyness limiting funciton Rehabilitation Potential: Good Anticipated Interventions Patient/Client Instruction: Educate patient on: Condition and Plan of Care For the Purpose of:: To increase tolerance to activity/condition/position Therapeutic Exercise to Include: Balance training Comment: psoitional For the Purpose of:: To increase tolerance to activity/condition/position Text: Thank you for the opportunity to evaluate your patient. For Medicare and Medicare HMO plans, please review the plan of care and approve it. It will need to be FAXED BACK to us at [phone] for Medicare purposes. For Medicare only, by signing this I certify the plan of care. Please let me know if there are questions or concerns regarding this plan of care. Physician Signature: Date:
--- NOTE | 2024-04-19 18:13 | HP.PTDCSUM ---
Discharge Summary D/C summary: It has been my pleasure to treat ANDREY THOMSON referred by ANIL Clarke, with the diagnosis of BPPV for a total of 4 visit(s). Discharge Date: 04/19/24 Please see the following information for a summary of their discharge status. Subjective Subjective: I feel better. Instantly better after last session. Did exercises for 3-4 days after last session without a problem. No activity avoidance at home. Overall Improvement % Improvement: 100 Objective Objective/Function: - B hallpike michele normal purusit and VOR without symptoms. head turns and nods without symptoms. Walking well and good balance even with eyes closed. Goals Goal 1:: abolish dizzyness x 1 week Goal Progress: Goal Met Goal 2:: Pt feel 100% back to normal in activities including gym workout if desired Goal Progress: Goal Met Goal 3:: DHI score 10 or less Goal Progress: Goal Met Plan Plan: d/c D/C Information d/c sentence: If there are questions or concerns regarding this patient's physical therapy, please feel free to call me at [phone]. Thank you for the referral of this patient. Sincerely, Feroz Toro, DPT, OCS, CSCS Balance/Gait/Functional tests Balance/Special Test Scores Functional Gait Assessment Score: 30 % Disability: 0 CATSIB Score (Max score 120 seconds): 95 Dizziness Score: 0 Improvement % Improvement: 100
== END 2024-04-19 19:00 | disposition home or self-care (01) ==
LOC: PT 18:00
PROVIDERS: PCP Internal Medicine; Referring Provider Physician Assistant; Visit Provider Physician Assistant
DX: H81.10 Benign paroxysmal vertigo, unspecified ear (principal)
CPT/HCPCS: 97161; 97530

== ENCOUNTER → 2024-10-22 | Outpatient (CLI) | payer OTHER, SELFPAY ==
--- NOTE | 2024-10-22 07:30 | BI_ITS ---
PROCEDURE: SCRN MAMM (CAD)W/DOYLE BILAT REASON FOR EXAM: F, Age 54 y/o, yearly follow-up. No family history of breast cancer. TECHNIQUE: Bilateral screening digital breast tomosynthesis with 2D and 3D images. Computer aided detection. COMPARISON: Prior exam(s) dating back to October 21, 2023.. FINDINGS: The breasts are heterogeneously dense which may obscure small masses. Stable examination. Stable small bilateral axillary lymph nodes. No suspicious masses, areas of developing architectural distortion, or suspicious calcifications. BI/SCRN MAMM (CAD)W/DOYLE BILAT IMPRESSION: BI-RADS 2: BENIGN. RECOMMEND ANNUAL MAMMOGRAPHIC SCREENING. Follow-up code: Routine Follow-up The patient will be notified of the results by letter. Reading Location: [place] [address]
== END | disposition home or self-care (01) ==
LOC: OPBI 07:28
PROVIDERS: PCP Internal Medicine; Referring Provider Internal Medicine; Visit Provider Internal Medicine
DX: Z12.31 Encounter for screening mammogram for malignant neoplasm of breast (principal)
CPT/HCPCS: 77063; 77067

== ENCOUNTER → 2024-11-26 | Outpatient (CLI) | payer OTHER, SELFPAY ==
--- NOTE | 2024-11-26 14:38 | ST.MBS ---
Modified Barium Swallow Patient Information Study Date: 11/26/24 Study Time: 13:00 Direct Billable Minutes: 88 Total Minutes procedure & reportin Diagnosis: Dysphagia R13.10 Referring Physician: Cathy Wang Reason for Referral: Assess swallow function, assess risk for aspiration, and determine recommendations for least restrictive diet textures and dysphagia interventions. Medical History: The patient was referred for MBSS by PCP following patient complaints of increased swallowing difficulty for the past 3 years. ~1X/week, the patient will experience sensation of liquids or foods (e.g. meats) becoming caught in her throat, requiring a hard gulp to clear, throat and chest pain as she swallows, occ choking on liquids, meat, and even her own spit. No need for Heimlich or inability to breathe during these episodes. SUPERVISOR ORCHARD observed mild hoarseness, which the patient reported she has had for >5 years (hoarseness has not changed/worsened). She attributes hoarseness to her hx of GERD. She has no hx w/ ENT. The patient reports PMH significant for asthma, GERD, DM type 2, hypothyroidism - See EMR for full PMH. Current Diet Ordered: Regular textures / Thin liquids Dentition: Natural Teeth Mental Status: WNL Respiratory Status: Oxygenating on Room Air Penetration-Aspiration Scale Penetration-Aspiration Scale: OBJECTIVE ASSESSMENT OF SWALLOW FUNCTION (QUANTITATIVE ? PER TRIAL): PENETRATION / ASPIRATION SCALE (SENIOR): 1 = does not enter airway 2 = enters airway/above vocal folds/ejected 3 = enters airway/above vocal folds/not ejected 4 = enters airway/contacts vocal folds/ejected 5 = enters airway/contacts vocal folds/not ejected 6 = enters airway/below vocal folds/ejected 7 = enters airway/below vocal folds/not ejected despite effort 8 = enters airway/below vocal folds/no effort VIDEOFLOROSCOPIC SCALE SCORE (SENIOR): Grade I = aspiration of material that has penetrated into the laryngeal vestibule, intact cough reflex Grade II = aspiration < 10 % of the bolus, intact cough reflex Grade III = aspiration of < 10 % of the bolus, reduced cough reflex or aspiration of > 10 % of the bolus, intact cough reflex Grade IV = aspiration of > 10 % of the bolus, reduced cough reflex Penetration-Aspiration Scale Score Thin Liquid via teaspoon: Result: 1= does not enter airway Thin Liquid via teaspoon Trial 2: Result: 2= enter airway/above vocal folds/ejected Thin Liquid via large single sip: cup: Result: 2= enter airway/above vocal folds/ejected Thin Liquid via sequential sips: cup: Result: 3= enters airways/above vocal folds/not ejected Orwell Thick Liquid via large single sip: cup: Result: 2= enter airway/above vocal folds/ejected Pudding via teaspoon: Result: 1= does not enter airway Comment: Esophageal screen - Retention in the middle and lower esophagus w/ min retrograde flow. Thin Liquid via single sip: straw: Result: 2= enter airway/above vocal folds/ejected Comment: Esophageal screen - Liquid wash somewhat cleared retention of previous trial. Additional liquid washes provided X2, which also somewhat cleared pudding from esophagus; however, significant barium remained in the middle esophagus. 1/2 Cookie coated in barium pudding: Comment: No PAS score as the fluoroscopy was turned on after the swallow had been completed. Esophageal screen - Retention in the middle and lower esophagus w/ min retrograde flow. Thin Liquid via single sip: straw Trial 2: Result: 2= enter airway/above vocal folds/ejected Comment: Esophageal screen - Liquid wash somewhat cleared retention of previous trial. 1/2 Cookie: Result: 1= does not enter airway Oral Phase Labial Seal: No Labial Escape Tongue Control During Bolus Hold: Posterior escape of less than half of bolus Bolus Preparation/Mastication: Timely and efficient chewing and mashing Bolus Transport/Lingual Motion: Brisk tongue motion Oral Residue: Trace residue lining oral structures Pharyngeal Phase Initiation of Pharyngeal Swallow: Bolus head in pyriforms Soft Palate Elevation: Trace column of contrast/air between soft palate and pharyngeal wall Laryngeal Elevation: Partial superior movement thyroid cart/partial apprx aryt-epig petiole Anterior Hyoid Excursion: Complete anterior movement Epiglottic Movement: Complete inversion Laryngeal Vestibule Closure at Height of Swallow: Incomplete; narrow column of air/contrast in laryngeal vestibule Pharyngeal Stripping Wave: Present - diminished Pharyngoesophageal Segment Opening: Complete distension and complete duration; no obstruction of flow Tongue Base Retraction: Narrow column of contrast between tongue base & post. pharyngeal wall Pharyngeal Residue: Collection of residue within or on pharyngeal structures Esophageal Phase Esophageal Clearance: Esophageal retention w/ retrograde flow through pharyngoesophageal seg (trace retention in UES w/ retrograde flow through UES w/ sequential thin) Diagnosis/Impression Diagnosis: Mild pharyngeal dysphagia R13.13, Esophageal dysphagia R13.14 Impression: The oral phase appears grossly WNL. The pharyngeal phase is marked by... -Mild delay in swallow onset. -Mildly decreased pharyngeal motility due to decreased TB retraction and pharyngeal stripping wave w/ trace-mild pharyngeal residues after the swallow. Pt often independently initiated a second swallow to clear mild pharyngeal residues. -Trace laryngeal penetration of sequential sips of thin liquids, which did not fully eject. No aspiration observed during the MBSS. The esophageal phase is marked by... -Minimal retention of liquid in the UES w/ retrograde flow to the pyriforms. -Minimal retrograde flow of thin liquids through the LES to the lower esophagus. -Retention of pudding and cookie in the middle and lower esophagus w/ retrograde flow, which somewhat cleared through the LES w/ liquid washes. Recommendations Diet: Regular Textures and Thin Liquids Comment: STOP meal if increased sensation of retention or regurgitation despite use of liquid washes and resume meal at a later time. Compensatory Strategies: Small Bites, Small Sips, Slow Rate, Alternate bites/solids and sips/liquids (2 sips after each bite), Sitting upright and Remain sitting upright for 30 minutes after PO intake Recommend Repeat Modified Barium Swallow: No Need for Skilled Speech Therapy Services: Yes Comment: -Educate the patient in strategies to decrease risk for reflux aspiration. -Train the patient in oropharyngeal exercises to address mildly reduced TB retraction, pharyngeal stripping wave, and laryngeal elevation (Clara, effortful, Jeana). -GERD management education. -If worsening hoarseness, would consider ENT consult. Recommended Referrals: GI Consult Education Completed: 1. Described result of evaluation. and 2. Pt understands evaluation & agrees with goals and treatment plan. Status Active ST Patient: Active Contact Information [facility] Speech Therapy:: Taylor Grimes M.A. CCC-SUPERVISOR ORCHARD? Speech-Language Pathologist?? [facility] [address] [place] [address]? [email or web address]?? [phone]
== END | disposition home or self-care (01) ==
LOC: RAD 12:47
PROVIDERS: PCP Internal Medicine; Referring Provider Internal Medicine; Visit Provider Internal Medicine
DX: R13.10 Dysphagia, unspecified (principal)
CPT/HCPCS: 74230; 92611

== ENCOUNTER 2025-01-21 17:47 | Outpatient (RCR) | payer OTHER, SELFPAY ==
--- NOTE | 2025-01-28 10:43 | HP.SP.EV_ITS ---
Visit History Visit Info Date of Eval: 01/21/25 Today is Visit #: 1 Patient's Approved Number of Visits: 20 Insurance Date Limit: 08/14/25 Telegraph Repeater Installer: LESLIE Voss Attending Doctor: Referring Doctor: Reason for Referral: DYSPHAGIA. RX HERE Medical Diagnosis: Dysphagia Previous speech therapy: No Other Relevant Medical History/Diagnoses/Surgery: GERD, type ll diabetes mellitus, asthma; pt presents with dysphagia - unspecified after being referred by Dr. Oreilly. Pt stated that she experiences episodes of coughing and choking on food 1-2 times per year, varying in intensity (from mild to severe coughing and occasionally gasping for air). Pt stated that it usually happens when she is drinking from her water bottle straw, but has happened with other liquids during cup sips as well (just not as often she feels). Smoking Status: Never smoker Diagnosis Diagnosis: Dysphagia Pain Is pain an issue with your current prescribed condition?: No Personal Preferred language: Occitan Patient Allergies Allergies Allergies: Allergies Penicillins (PCN) Allergy (Verified 01/21/25 13:50) Hives Sulfa (Sulfonamide Antibiotics) Allergy (Verified 01/21/25 13:50) Hives Subjective Dysphagia Symptoms Reported Symptoms/Problems with: Choking Current Diet Solids Current Diet: Regular Current Diet Liquids Current Liquids: Thin Objective Dysphagia Administered by Administered by: DIRECTOR OF SEARCH ENGINE OPTIMIZATION Thin Liquids Administred via: Cup and Straw Oral Transit: WNL Bolus clearance: fully cleared Gagging: No Cough: throat clear Pharyngeal phase: laryngeal elevation mildly restricted slow initiation Comments: 2x throat clear post swallow with straw sip only Pureed Administered via: Spoon Oral Preparation: WNL Oral Transit: WNL Bolus clearance: fully cleared Pharyngeal phase: laryngeal elevation mildly restricted slow initiation Comments: Pudding cup Moist & Minced Administered via: Spoon Oral Preparation: WNL Oral Transit: WNL Bolus clearance: fully cleared Pharyngeal phase: laryngeal elevation mildly restricted slow initiation Soft & Bite sized (Mechanical) Administered via: Spoon Oral Preparation: WNL Oral Transit: WNL Bolus clearance: fully cleared Pharyngeal phase: laryngeal elevation mildly restricted slow initiation Comments: Fruit cup Regular Oral Preparation: WNL Oral Transit: WNL Bolus clearance: fully cleared Cough: throat clear Pharyngeal phase: laryngeal elevation mildly restricted slow initiation Patient Report: Pt reported that the nuts and meat stick were dry, so she took one cup sip of water follow each. Comments: Nuts, meat stick, cookie; throat clear x1 with nuts and x1 with meat stick. Impact Impact on Safety & Functioning: Risk for Aspiration Recommendations Modified Barium Swallow/Cookie Swallow Recommended: No Swallowing Treatment: Yes Diet Texture Recommendations Solids: Regular (Level 7) Liquids: Thin (Level 0) Safety Saftey Precautions/Swallowing Recommendations (Check all that Apply): Small Sips & Bites when Eating and No Straw Results Swallowing Within Normal Limits: No Swallowing Diagnosis: Dysphagia Unspecified (R13.10) Severity: Mild Objective Oral Motor Oral Status Dentition: WNL Labial Impairment: WNL Observation at Rest: WNL Closure: WNL Pucker: WNL Retraction: WNL Alternating Pucker/Retraction: WNL Involuntary Movement noted: No Lingual Impairment: WNL Protrusion: WNL Retraction: WNL Lateralization: WNL Involuntary Movement: No Jaw Impairment: WNL Opening: WNL Closing: WNL Involuntary Movement: No Oral Motor Comments Comments: Oral motor WNL Respiratory Status Respiratory Status: Room Air Reference: Neuro-QoL instrument Radiation Oncology Patient Plan Plan Plan: At this time, it is recommended that Merly participate in weekly skilled speech therapy services to address mild dysphagia through strengthening the oropharyngeal muscles, which will decrease the risk for aspiration. Recommendations Treatment Warranted: Yes Treatment Warranted: Dysphagia Progress Prognosis: Good Frequency Frequency: 1x/Week Duration: Indefinite Patient/Family Goal Patient/Family Goal: Patient stated that she would like to reduce the amount of times she experiences coughing/choking episodes. Goals that are Established Determination:: Goals will be added/modified as deemed necessary and appropriate. Therapy will be discontinued when results of re-evaluation indicate therapy is no longer needed or lack of progress has been documented. Goal #1-5 Goal #1: Merly will utilize swallowing strategies (multiple swallows, chin tuck, head turn) and tolerate least restrictive diet with no overt s/s of aspiration/penetration to aid in safe consumption of solid/liquids independently. Goal #2: Merly will complete oropharyngeal exercises for 10 reps, 3x/day independently to improve tongue base retraction, UES opening/distention, and hyolaryngeal elevation and excursion. Education Patient has Indicated that the Following Identified Educational Needs: None The Patient has indicated that they have no educational or learning abilities that may effect their care.: Yes Patient Instruction Patient Education: Diagnosis, Treatment Plan, Goals and Home Exercise Program Person Taught: Patient Teaching Method: Discussion Response to teaching: Verbalize Understanding
--- NOTE | 2025-07-22 14:29 | HP.SP.DC ---
ST Discharge Summary Discharged: Discharge: Patient is being discharged from [facility] [place] speech therapy services at this time. Patient attended initial evaluation on 01/21/25 for concerns with dysphagia. Patient recommended for weekly speech therapy. Patient did not schedule any visits following the initial evaluation. Thank you for allowing me to participate in the care of this patient.
== END 2025-01-21 19:00 | disposition home or self-care (01) ==
LOC: SP 17:47
PROVIDERS: PCP Internal Medicine; Referring Provider Internal Medicine; Visit Provider Internal Medicine
DX: R13.10 Dysphagia, unspecified (principal)
CPT/HCPCS: 92610

== ENCOUNTER → 2025-03-14 | Outpatient (CLI) | payer OTHER, SELFPAY | END | disposition home or self-care (01) | LOC: SL 10:30 | PROVIDERS: PCP Internal Medicine; Visit Provider Internal Medicine | DX: Z46.89 Encounter for fitting and adjustment of other specified devices (principal) ==

== ENCOUNTER → 2025-04-19 | Outpatient (CLI) | payer OTHER, SELFPAY | END | disposition home or self-care (01) | LOC: SL 16:14 | PROVIDERS: PCP Internal Medicine; Referring Provider Internal Medicine; Visit Provider Internal Medicine | DX: Z46.89 Encounter for fitting and adjustment of other specified devices (principal) ==

== ENCOUNTER → 2025-05-15 | Outpatient (CLI) | payer OTHER, SELFPAY ==
--- NOTE | 2025-05-15 13:50 | NEURO ---
NCS and/or EMG Patient Report Ordering Doctor: Cathy Wang DATE OF SERVICE: 05/15/25 Merly presents with complaints of numbness and tingling in the legs. Symptoms are most predominant in the feet. Electrodiagnostic findings: Right peroneal motor nerve demonstrates normal distal latency, amplitude and conduction velocity. Left peroneal motor response within normal limits. Tibial motor response normal bilaterally. Normal tibial and peroneal F–waves. Prolonged H–reflex bilaterally. Prolonged sural latency is noted bilaterally. Prolonged superficial peroneal latency bilaterally. Needle EMG testing was performed the lower limbs. All muscles tested showed no evidence of denervation with normal motor unit action potentials. Electrodiagnostic impression: This an abnormal study in the lower limbs 1. Electrodiagnostic findings suggestive of sensory polyneuropathy, with some evidence of demyelination. Findings likely related to long history of diabetes. 2. No electrodiagnostic evidence is noted for lumbosacral radiculopathy Multi Select Codes Neurology Neurology Interp Codes: 66294-73 Musc test done w/n test comp (interp) (2) and 83018-54 Nrv cndj test 11-12 studies (interp)
== END | disposition home or self-care (01) ==
LOC: PSN 12:02
PROVIDERS: PCP Internal Medicine; Referring Provider Internal Medicine; Visit Provider Internal Medicine
DX: G62.9 Polyneuropathy, unspecified (principal)
CPT/HCPCS: 95886; 95912

== ENCOUNTER → 2025-05-29 | Outpatient (CLI) | payer OTHER, SELFPAY ==
--- NOTE | 2025-05-29 14:57 | NEURO ---
NCS and/or EMG Patient Report Ordering Doctor: Cathy Wang DATE OF SERVICE: 05/29/25 Merly Beckham presents with intermittent numbness and tingling in both hands. Diagnostic findings: Median motor nerve demonstrates normal distal latency, amplitude and conduction velocity bilaterally. Normal ulnar motor response bilaterally. Normal median and ulnar F–waves bilaterally. Prolonged median sensory latency at the wrist bilaterally with reduced conduction velocity. Needle EMG testing was performed in the upper limbs. All muscles tested showed no active denervation with normal motor unit action potentials. Electrodiagnostic impression: This is an abnormal study. 1. Electrodiagnostic findings suggestive of a bilateral median mononeuropathy. This consistent with a mild bilateral carpal tunnel syndrome. 2. No electrodiagnostic evidence is noted for cervical radiculopathy. Multi Select Codes Neurology Neurology Interp Codes: 64240-06 Musc test done w/n test comp (interp) (2) and 90526-60 Nrv cndj test 13/> studies (interp)
== END | disposition home or self-care (01) ==
LOC: PSN 13:16
PROVIDERS: PCP Internal Medicine; Referring Provider Internal Medicine; Visit Provider Internal Medicine
DX: G62.9 Polyneuropathy, unspecified (principal)
CPT/HCPCS: 95886; 95913